=== PATIENT | male | born 1955 ===

== ENCOUNTER 2023-12-04 21:23 | Inpatient (IN) | payer OTHER, SELFPAY ==
[2023-12-04] VITALS (41 sets, daily range): BP systolic 115–179; BP diastolic 73–133
--- NOTE | 2023-12-04 20:06 | ED.CVA ---
History of Present Illness
General
Chief Complaint: CVA/TIA Symptoms
Source: patient, spouse and ambulance crew
Exam Limitations: none
Time Seen by Provider: 12/04/23 20:04
Nursing documentation reviewed up to this point in time: agreed with
Onset of Stroke Symptoms
Onset of symptoms known: Yes
Date of onset of symptoms: 12/04/23
Time of onset of symptoms: 19:40
Time pt last seen normal is known: Yes
Date last time pt seen normal: 12/04/23
Time last time pt seen normal: 19:30
History of Present Illness
History of Present Illness:
68-year-old male presents emergency department due to right-sided gaze, expressive aphasia and dysarthria. Slurred speech and right-sided gaze began at 1940 tonight. He has residual left-sided weakness. He is not amatory from prior CVA.
Past History
Past History
ED Past Medical History: CVA and NIDDM
Social History
Tobacco: Non-smoker
Alcohol: None
Drug: None
Personal:
Living: with family
Review of Systems
Review of Systems
Allergies reviewed?: Yes
All Other Systems: Not applicable
Constitutional: Reports no symptoms
EENT: Reports no symptoms
Respiratory: Reports no symptoms
Cardiac: Reports no symptoms
ABD/GI: Reports no symptoms
: Reports no symptoms
Musculoskeletal: Reports no symptoms
Skin: Reports no symptoms
Neurological: Reports weakness and other (Left facial droop, dysarthria, expressive aphasia)
Endocrine: Reports no symptoms
Hematologic/Lymphatic: Reports no symptoms
Psychiatric: Reports no symptoms
Phy Exam
Physical Exam
Physical Exam:
Physical Exam
General: Chronic ill appearance
Neck: supple. no meningeal signs. normal posterior pharynx
Heart: s1/s2 regular rate and rhythm, no murmur. equal radial
pulses.
HEENT: Pupils equal round reactive to light, right gaze preference, left facial droop
Lungs: no acute respiratory distress. clear bilaterally
Abdomen: normal bowel sounds. not tender. no CVAT
Neuro: alert but unable to assess orientation. Left leg weakness, left arm weakness, expressive aphasia, dysarthria
Skin: no rash
Psychiatric: well kept. interactive and cooperative
Extremities: no edema. no calf tenderness. negative homans. good distal pulses
NIH Stroke Score
Level of Consciousness: 0 - Alert
LOC questions: 1-Answers one correctly
LOC Commands: 1-Performs one correctly
Best Gaze: 2-Total gaze palsy
Visual Leyva: 2=Full hemianopia
Facial palsy: 2=Partial paralysis
Motor - Right Arm: 1=Drift < 10 seconds
Motor - Left Arm: 2=Partial vs. gravity
Motor - Right Le-No drift 5 seconds
Motor - Left Le-None vs. gravity
Limb Ataxia: 1-Present in one limb
Sensation: 0-Normal
Best Language: 2-Severe aphasia
Dysarthria: 1-Mild slurring
Extinction and Inattention: 2-Total paco inattention
Total Score:: 20
Thierry Coma Scale
Eye Opening: Spontaneous
Verbal Response: Oriented
Motor Response: Obeys Commands
GCS Total Score: 15
Scores
NIH Stroke Score
Level of Consciousness: 0 - Alert
LOC Questions: 1-Answers one correctly
LOC Commands: 1-Performs one correctly
Best Horizontal Gaze: 2-Total gaze palsy
Visual Leyva: 2=Full hemianopia
Facial Palsy: 2=Partial paralysis
Motor - Right Arm: 1=Drift < 10 seconds
Motor - Left Arm: 2=Partial vs. gravity
Motor - Right Le-No drift 5 seconds
Motor - Left Le-None vs. gravity
Limb Ataxia: 1-Present in one limb
Sensation: 0-Normal
Best Language: 2-Severe aphasia
Dysarthria: 1-Mild slurring
Extinction and Inattention: 2-Total paco inattention
Total Score:: 20
Course
Orders/Labs/Results
Orders:
Orders
12/04/23 20:03
CT Head W/o Cont STROKE ALERT Urgent
Reason For Exam: CVA
12/04/23 20:04
CT Head/Neck Ang STROKE ALERT Urgent
Comment:
Reason For Exam: left side weakness, right gaze preference
Cardiac Monitoring- Treatment ONCE
Pulse Ox/cont/shift [RESP] Stat
Quantity: 1
12/04/23 20:05
Electrocardiogram (*1) Stat
Reason for Study: Other
Other Reason for Exam: neuro symptoms
EKG- Treatment ONCE
12/04/23 20:16
DIETARY CONSULT Routine
Reason for Consult: cva
Speech Screening from [facility] Routine
Speech Therapy Eval & Treat Stat
12/04/23 20:25
Complete Blood Count/With Diff Urgent
Comprehensive Metabolic Panel Urgent
PTT Urgent
Prothrombin Time Urgent
12/04/23 20:48
Tenecteplase [Tnkase] 15 mg Syringe [Syringe Non-Pump] 0 ml IV NOW
Provider explained risk/benefits to patient &/or caregiver?: Yes
Blood pressure: 116/81
12/05/23 Breakfast
NPO
Reason for opting out of Loaf Counter order writing: Provider Decision
Allow oral meds: No
Allow clear liquids: No
Comment: npo/cva
Abnormal Lab Results
12/04/23 12/04/23
20:24 20:25
WBC 14.9 H 10^3/uL
(4.8-10.8)
Abs Immat Gran (auto) 0.1 H 10^3/uL
(0-0.05)
Absolute Neuts (auto) 9.3 H 10^3/uL
(1.4-6.5)
Absolute Lymphs (auto) 4.1 H 10^3/uL
(1.2-3.4)
Absolute Monos (auto) 1.1 H 10^3/uL
(0.1-0.6)
PT 15.6 H Sec
(11.4-14.6)
Glucose 171 H mg/dl
(70-99)
Total Protein 6.0 L g/dl
(6.3-8.2)
POC Glucose 171 H mg/dl
(70-99)
12/04/23 20:25
12/04/23 20:25
Vital Signs
Initial and Last Documented VS:
Initial Vital Signs
Temp Pulse Resp BP Pulse Ox
97.8 F 87 16 115/74 99
12/04/23 20:04 12/04/23 20:04 12/04/23 20:04 12/04/23 20:04 12/04/23 20:04
Last Documented Vital Signs
Temp Pulse Resp BP Pulse Ox
98.4 F 85 22 118/73 91
12/04/23 20:04 12/04/23 20:45 12/04/23 20:45 12/04/23 20:45 12/04/23 20:45
MDM/Problems Addressed
Differential Diagnosis Includes:
Acute CVA, intracranial hemorrhage
MDM/Problems Addressed:
68-year-old male with acute CVA, TNK indicated, in discussion with and Dr. Verma, neurologist.
Chronic conditions affecting care: DM and Neurological disorder (Prior CVA)
Acute Exacerbation and/or Progression of Chronic Illness: DM and Neurological disorder (Prior CVA)
*Radiology
Radiology exam reviewed: radiology read reviewed (CT head chronic ischemic changes)
*Pulse Oximetry
Patient hypoxic: yes
*EKG
Interpreted by ED Provider?: Yes
EKG Intrepretation Date: 12/04/23
EKG Intrepretation Time: 20:26
Interpretation: abnormal
Comparison EKG: no comparison EKG present
Heart Rate: 87
Rate: normal
Rhythm: sinus
Foley: normal axis
Interval: normal interval
QRS Pattern: right bundle branch block
Ischemia: no ischemia
*Pest Control Technician Interpretation
Rate: normal
Interpretation: normal
Heart Rate: 85
Rhythm: sinus
*Critical Care Note
Total Time (30-74mins, 75-104mins- exclusive of procedures): 45
comment:
Critical care statement: A total of 45 minutes of critical care time was provided for this patient. This includes management of unstable vital signs, evaluation of the patient at bedside, reviewing the patient's pertinent medical records, discussion
with consultants, review of old EKGs and review of pertinent medical records. This time with separate from time utilized to perform the aforementioned documented procedures
Patient Management
Social determinants of health affecting care: Living situation
Discussion with other providers: Hospitalist and State [employer] Deputy Director (neurologist)
Escalation/DeEscalation of care consider admission/obs:
ICU admit indicated
ED Attending Note
-
Portions of this chart may have been created with voice recognition software.� Occasional wrong word or��sound alike� substitutions may have occurred due to the inherent limitations of voice recognition software.
Discharge Plan
Departure
Patient Disposition: Admit
Date of Disposition: 12/04/23
Time of Disposition: 20:41
Admit to: ICU
Presentation/result/management discussed w/ accepting MD/DO: Hospitalist
Patient with high blood pressure during this ER visit?: No
Condition: Serious
Discharge Problem:
Acute cerebrovascular accident (CVA)
Interventions
Interventions:
*Risk Screen - Suicide Last Done: 12/04/23 20:04
*General Assessment Last Done: 12/04/23 20:04
*Neglect/Abuse Screening Last Done: 12/04/23 20:04
ED- Fall Risk Assessment Last Done: 12/04/23 20:04
ED- Pulmonary Assessment Last Done: 12/04/23 20:04
ED- Neurological Assessment Last Done: 12/04/23 20:04
ED- Cardiac Assessment Last Done: 12/04/23 20:04
ED Swallowing Screen Last Done: 12/04/23 20:31
Discharge Date and Time
Print Language: SYRIAC
[2023-12-04 20:25] LABS: Glucose - Point of Care 171 mg/dl (70-99)
[2023-12-04 20:34] LABS: Hematocrit 41.9 % (39.0-52.0); Hemoglobin 14.5 g/dL (13.0-18.0); Mean Corp Hgb Conc. 34.6 g/dL (33.0-37.0); Mean Corpuscular Hgb 29.4 pg (27.0-31.0); Mean Platelet Volume 9.7 fL (7.4-10.4); Platelet Count 281 10^3/uL (130-400); Red Blood Cell Count 4.93 10^6/uL (4.70-6.10); Red Cell Dist. Width 13.2 % (11.5-14.5); White Blood Cell Count 14.9 10^3/uL (4.8-10.8)
[2023-12-04 20:42] LABS: APTT 25.5 Sec (23.4-35.0); INR 1.26; PT 15.6 Sec (11.4-14.6)
[2023-12-04 20:44] LABS: ALT (SGPT) 24 U/L (0-50); AST (SGOT) 24 U/L (17-59); Albumin 3.8 g/dl (3.5-5.0); Alkaline Phosphatase 50 U/L (38-126); Blood Urea Nitrogen 19 mg/dl (9-20); Calcium 9.3 mg/dl (8.4-10.2); Chloride 102 mmol/L (98-107); Glucose 171 mg/dl (70-99); Potassium 3.8 mmol/L (3.5-5.1); Sodium 141 mmol/L (135-145); Total Bilirubin 0.5 mg/dl (0.2-1.3); eGFR > 60.00
[2023-12-04 20:49] LABS: % Basophils 0.6 % (0-2); % Eosinophils 1.6 % (0-6); % Immature Granulocytes 0.3 % (0-0.5); % Lymphocytes 27.6 % (20.5-51.1); % Monocytes 7.6 % (1.7-9.3); % Neutrophils 62.3 % (42.2-75.2); Absolute Basophils 0.1 10^3/uL (0-0.2); Absolute Eosinophils 0.2 10^3/uL (0-0.7); Absolute Immature Granulocytes 0.1 10^3/uL (0-0.05); Absolute Lymphocytes 4.1 10^3/uL (1.2-3.4); Absolute Monocytes 1.1 10^3/uL (0.1-0.6); Absolute Neutrophils 9.3 10^3/uL (1.4-6.5); Nucleated Red Blood Cells % 0 % (-)
[2023-12-04 20:54] LABS: Carbon Dioxide 25 mmol/L (22-30)
[2023-12-04] MEDS: TNKASE 3 MG IV (20:54)
--- NOTE | 2023-12-04 21:12 | CON.NEURO4 ---
Consultation - Neurology 4
-
CONSULTING PHYSICIAN: Gianluca Mendoza
REFERRING PHYSICIAN: ER
DICTATED BY: Gianluca Verma MD
DATE/TIME OF REQUEST: December 04, 2023
DATE/TIME OF CONSULTATION: December 04 [id number]
Reason for Consultation: Aphasia with right gaze preference
History of Present Illness:
This is a (68) year old right) handed (male/ who has presented to the hospital with (chief complaint) of aphasia with right gaze preference. He has a history of prior CVA with residual left-sided paralysis with left field cut, hypertension,
diabetes, GERD presenting with slurred speech. As per patient's spouse, patient was in his house and at 7:40 PM she heard him scream and when she went to see him he was dry heaving. He was pale and had slurred speech. No seizure noted.
She called EMS and he was brought to the hospital. At baseline pat chair bound able to stand and walk with assist. Able to feed himself chew and swallow.
On arrival he was confused disoriented with left hemiplegia and visual field cut. Speech was limited.
He was given TNK at 2100. Following TNK infusion, pat mental status improved with improved eye movements and speech pattern. Left side remains weak(old)
Past Medical History: Hypertension diabetes Right CVA(Apr 2021)
Surgical History: None
Family History: Noncontributory
Social History: Quit smoking
Allergies: No known allergies
Home Medications: Addendum
Review of Symptoms:
'Per the HPI. I am unable to obtain a complete review of systems�because of patient's inability to provide history.'
Vital Signs:
The patient has a Temp 36.9 C Pulse 91 Resp26 BP 133/90 Pulse Ox 87
Physical Exam:
The patient is afebrile, heart sounds S1 and S2 are (regular , and chest is clear to auscultation bilaterally.
- If not clear, describe.
NIH Stroke Scale (if applicable):
I performed the NIH stroke scale on the patient. The patient scored ( 20 ) points on the NIH stroke scale assessment, which were assigned as follows:
Neurologic Examination:
The patient is awake, confused and oriented x person. (He is able to follow commands intermittently and unable to answer questions appropriately. There is aphasia and dysarthria. Unable to tell his wifes name or his
On cranial nerve assessment, pupils are 3 mm bilateral, round and reactive to light and accommodation. Visual aguilar are full. Extraocular movements are intact. Facial sensations are intact and bilaterally symmetrical, there is LEFT facial
asymmetry. Hearing is intact bilaterally to normal conversation volume. Tongue palate and uvula are midline. Sternocleidomastoid strengths are full bilaterally.
Motor strengths are 0/5 LEFT upper and lower extremities(OLD). There is involuntary movement noted. Deep tendon reflexes are 3+ bilateral upper and lower extremities and LEFT Babinski. Sensations of pain, touch, temperature and vibration are
impaired(L). There was no extinction noted on double simultaneous stimulation.
Coordination is intact by finger to nose RIGHT. BedBound
Lab Results: Addendum
Neuro Imaging: CT head shows large Chronic posterior Right frontal temporal occipital ischemic focus
Impression:
(Mr. / Ms.) ALIZE MAYA is a 68 year old M who has presented to the hospital with (symptoms/chief complaint).
Differentials for the patient's presentation include:
1. Extension of previous infarct
2. Seizures
Patient has the following risk factors for their symptoms: Hypertension diabetes previous stroke
IV Tenecteplase/IAT candidacy: Patient received IV tenecteplase at 2100
Recommendations:
1. Serial CT head
2. Permissive hypertension with MAP of 100
3. Statin therapy
4. ICU monitoring
5. MRI head
6. EEG
7. Carotid Dopplers
8. Echocardiogram
9. Neurochecks
10. N.p.o.
11 PT/OT
Discussed patient care with: ED
Allergies
-
Allergies
Allergy/AdvReac Type Severity Reaction Status Date / Time
No Known Allergies Allergy Unverified 12/04/23 20:30
Vital Signs and Labs
-
Vital Signs and Labs:
Vital Signs
Temp Pulse Resp BP Pulse Ox
36.9 C 91 26 133/90 87
12/04/23 20:04 12/04/23 21:12 12/04/23 21:12 12/04/23 21:12 12/04/23 21:12
Lab Results
12/04/23 20:25
12/04/23 20:25
PT 15.6 Sec (11.4-14.6) H 12/04/23 20:25
INR 1.26 12/04/23 20:25
APTT 25.5 Sec (23.4-35.0) 12/04/23 20:25
Sodium 141 mmol/L (135-145) 12/04/23 20:25
Potassium 3.8 mmol/L (3.5-5.1) 12/04/23 20:25
BUN 19 mg/dl (9-20) 12/04/23 20:25
Glucose 171 mg/dl (70-99) H 12/04/23 20:25
Calcium 9.3 mg/dl (8.4-10.2) 12/04/23 20:25
Medications
-
Active Medications
Generic Name Dose Route Start Last Admin
Trade Name Freq PRN Reason Stop Dose Admin
Sodium Chloride 1,000 mls @ 60 mls/hr 12/04/23 21:15
Nss IV
.[id number] IKER
Levetiracetam 500 mg 12/04/23 22:00
Levetiracetam (100 Mg/Ml) 500 Mg/5 Ml Vial IV 01/01/24 21:59
Q12 IKER
--- NOTE | 2023-12-04 21:16 | HPS.HSE ---
Family Physician
-
Family Physician:
Chief Complaint
-
aphasia
History of Present Illness
68-year-old male with past medical history of prior CVA with residual left-sided paralysis, left eye vision loss, short-term memory loss, hypertension, diabetes, GERD presenting with slurred speech. As per patient's spouse, patient was in his house
and at 7:40 PM she heard him scream and when she went to see him he was dry heaving and looked pale and had slurred speech. She called EMS and he was brought to the hospital.
At baseline patient is wheelchair-bound.
She reports that he was confused.
Denies smoking or alcohol use.
No family history of strokes.
Medical History
Past Medical History
Past Medical History: Reports Other (prior CVA with residual left-sided paralysis, left eye vision loss, short-term memory loss, hypertension, diabetes, GERD)
Past Surgical History: Reports None
Social History
Tobacco: Non-smoker
Alcohol: None
Drug: None
Family History
Family History: Not pertinent
Allergies / Home Medications
Allergies reflects when Allergies were last updated in [facility].
Home Medications with original date entered in [facility]
Allergy/Medication List:
Allergies
Allergy/AdvReac Type Severity Reaction Status Date / Time
No Known Allergies Allergy Unverified 12/04/23 20:30
Review of Systems
-
History Source: Patient
A 12 point ROS was completed and negative except as noted: Yes
Constitutional: Reports No Symptoms
EENT: Reports No Symptoms
Respiratory: Reports No Symptoms
Cardiac: Reports No Symptoms
Abdomen/GI: Reports No Symptoms
: Reports No Symptoms
Musculoskeletal: Reports No Symptoms
Skin: Reports No Symptoms
Neurological: Reports No Symptoms
Endocrine: Reports No Symptoms
Hematologic/Lymphatic: Reports No Symptoms
Psych: Reports No Symptoms
Physical Exam
Vital Signs
Vital Signs
Temp Pulse Resp BP Pulse Ox
98.4 F 91 26 133/90 87
12/04/23 20:04 12/04/23 21:12 12/04/23 21:12 12/04/23 21:12 12/04/23 21:12
Physical Exam
General: Well Developed, Well Nourished and No Apparent Distress
HEENT: NormoCephalic, Moist mucous membranes and Atraumatic
Respiratory: Clear
Cardiac: S1/S2 and Regular Rhythm; No Murmur or Rub
GI: Soft, Non Tender, Non Distended and Normal Bowel Sounds; No Organomegaly
Rectal: Deferred by Provider
Musculoskeletal: No Clubbing, No Cyanosis and No Edema
Skin: No Rash
Neuro: Nonfocal/grossly intact and Other (aphasia, left sided paralysis )
Laboratory Results
-
12/04/23 20:25
12/04/23 20:25
Laboratory Results
PT 15.6 Sec (11.4-14.6) H 12/04/23 20:25
INR 1.26 12/04/23 20:25
APTT 25.5 Sec (23.4-35.0) 12/04/23 20:25
Total Bilirubin 0.5 mg/dl (0.2-1.3) 12/04/23 20:25
AST 24 U/L (17-59) 12/04/23 20:25
ALT 24 U/L (0-50) 12/04/23 20:25
Alkaline Phosphatase 50 U/L (38-126) 12/04/23 20:25
Data Reviewed
-
Lab Data: Labs Reviewed by me
Old Records: Reviewed
Impression/Plan
-
IMPRESSION:
PLAN:
# Aphasia secondary to Acute CVA versus seizure
-Accurate NIH unable to be performed due to baseline left-sided paralysis and patient's mental capacity
-TNK given
-Neurochecks per protocol
-Hold aspirin
-Check MRI brain
-PT/OT/speech evaluation
-N.p.o.
-A1c and lipid panel
-permissive hypertension up to 180/100 systolic
-Keppra BID started
-Neurology consulted
History of CVA with residual left-sided paralysis, left eye vision loss, short-term memory loss
Type 2 diabetes
-Hold metformin
-Insulin sliding scale
Essential hypertension
-Hold amlodipine
GERD
-Continue Protonix as IV
DNR/DNI
DVT prophylaxis�SCDs
N.p.o.
--- NOTE | 2023-12-04 22:32 | W.PN.UPDATE ---
Update Note
Progress Note Update
As per radiology there is concern for pulmonary embolism within the superior margin of the left pulmonary artery with possible emboli extending into lower branch vessels. Checking CT PE and venous lower extremity ultrasound to confirm pulmonary
embolism. As patient just received TNK for possible CVA, patient cannot be anticoagulated at this time for at least 24 hours. Will need to determine timing of starting anticoagulation with guidance from neurology.
[2023-12-04] MEDS: NSS 1000 IV (22:59)
[2023-12-04] MEDS: KEPPRA 500 MG IV (23:00)
--- NOTE | 2023-12-04 23:00 | PTCARENOTE ---
Received patient from ED RN, [facility] completed together, score of 17. See neuro assessment. TNK given in ED, no s/s of bleeding, VSS, permissive HTN MAP >100 per Neurology note. 4L NC. 1 IV site upon arrival to ICU in left AC. Pt went for CT of chest,
positive for PE. NSS @60ml. CC #21 placed for incontinence, Q2hour turns with pillows. Dual RN skin check completed, pts skin is intact, he has psoriasis patches on b/l legs, hips, back and arms. was able to assist with admission questions.
[2023-12-05] VITALS (73 sets, daily range): BP systolic 131–184; BP diastolic 67–99; BMI 26.6
--- NOTE | 2023-12-05 01:00 | W.PN.UPDATE ---
Update Note
Progress Note Update
12/04/23
2670- CTA of the chest results received from radiologist, Pulmonary embolus in the left main pulmonary artery, and small embolus within a segmental branch within the right lower lobe, with possible embolus within the right anterior subsegmental
branch within the right upper lobe. Right RV strain present as well. Results of CTA of the chest communicated with Dr. Patel, social media designer. Patient has received TNK for stroke symptoms upon presentation to the ER, immediately initiation of
anticoagulation, heparin gtt for pulmonary emboli cannot be started at this time. Currently heart rate 80s in sinus rhythm and SBP 150s, patient is not tachycardic or hypotensive with PE's. Will obtain labs and follow PTT and fibrinogen and
initiation of heparin gtt will be considered. Repeat Ct scan of the head ordered for AM.
12/05/23
0015- Patient's , Maira updated on findings of CTA of chest with multiple pulmonary emboli and answered all questions.
[2023-12-05 01:34] LABS: Glucose - Point of Care 160 mg/dl (70-99)
[2023-12-05 04:16] LABS: Hematocrit 41.8 % (39.0-52.0); Hemoglobin 14.6 g/dL (13.0-18.0); Mean Corp Hgb Conc. 34.9 g/dL (33.0-37.0); Mean Corpuscular Hgb 30.2 pg (27.0-31.0); Mean Corpuscular Volume 86.5 fL (80.0-94.0); Mean Platelet Volume 9.6 fL (7.4-10.4); Platelet Count 227 10^3/uL (130-400); Red Blood Cell Count 4.83 10^6/uL (4.70-6.10); Red Cell Dist. Width 12.9 % (11.5-14.5); White Blood Cell Count 11.1 10^3/uL (4.8-10.8)
[2023-12-05 04:32] LABS: INR 1.33; PT 16.3 Sec (11.4-14.6)
[2023-12-05 04:33] LABS: APTT 31.5 Sec (23.4-35.0); Fibrinogen 164 MG/DL (199-459)
[2023-12-05 04:38] LABS: Blood Urea Nitrogen 19 mg/dl (9-20); Calcium 9.7 mg/dl (8.4-10.2); Carbon Dioxide 30 mmol/L (22-30); Chloride 105 mmol/L (98-107); Glucose 163 mg/dl (70-99); HDL Cholesterol 48 mg/dl; LDL Cholesterol, Calculated 82 mg/dl; Magnesium 1.6 mg/dl (1.6-2.3); Phosphorus 3.7 mg/dl (2.5-4.5); Potassium 4.6 mmol/L (3.5-5.1); Sodium 144 mmol/L (135-145); Total Cholesterol 151 mg/dl (50-199); Triglyceride 105 mg/dl (10-149); Very Low Density Lipoprotein 21 mg/dl (0-30); eGFR > 60.00
[2023-12-05] MEDS: MAGNESIUM SULFATE 50 IV (05:45)
--- NOTE | 2023-12-05 07:16 | CON.INTV ---
Consultation
Consultation Request
Date/Time Consultation Requested: 12/05/2023-7 AM
Date/Time Consultation Performed: 12/05/2023-7 AM
Requesting Provider: Hospitalist
Performing Provider: Dr. Patel
Reason for Consultation: CVA and PE
Medical History
-
Chief Complaint: Neurologic changes
History of Present Illness:
68-year-old right-handed male with a history of prior CVA with residual left-sided paralysis, left vision loss, short-term memory loss, hypertension, diabetes, reflux who presented with dry heaves looking pale and slurred speech-brought to the
emergency room felt to have evolving CVA and given TKA and workup also revealed significant pulmonary emboli-grinder hardboard consulted for CVA/post TKA/PE/critical care management 12/05/2023. The patient feels improved from a neurologic perspective. He
continues to have some slurred speech but denies any shortness of breath, chest pain, pleurisy, chest congestion, productive cough, abdominal pain, nausea, or progressive weakness.
Past Medical History
Past Medical History: None (CVA with residual left-sided paralysis. Left eye vision loss. Short-term memory loss. Hypertension. Diabetes. GERD.)
Social History
Tobacco: Non-smoker
Alcohol: None
Drug: None
Personal:
Living: With Family
Occupational Exposures: No known asbestos exposure
Environmental Exposures: No known tuberculosis exposure
Family History
Family History: Reviewed & Not Pertinent
Allergies / Home Medications
Allergies
Allergy/AdvReac Type Severity Reaction Status Date / Time
No Known Allergies Allergy Unverified 12/04/23 20:30
Review of Systems
-
Unable to Obtain full review of systems at this time due to: Other (Per HPI)
Vitals / Labs / Diagnostic Testing
Vital Signs
Temp Pulse Resp BP Pulse Ox
98.5 F 75 15 131/68 98
12/05/23 04:30 12/05/23 06:57 12/05/23 06:57 12/05/23 06:57 12/05/23 05:45
Lab Data
12/05/23 03:51
12/05/23 03:51
Laboratory Results
12/04/23 12/05/23
20:25 03:51
PT 15.6 H 16.3 H
INR 1.26 1.33
APTT 25.5 31.5
Diagnostic Testing:
Physical Exam
-
Exam:
Well-nourished and well-developed in no apparent distress
HEENT-atraumatic, normocephalic
Neck-supple, no JVD, no bruit
Heart-regular rate and rhythm-no murmurs, rubs or gallops
Chest with diminished breath sounds but no wheezes or crackles
Abdomen-soft, nontender, nondistended, no hepatosplenomegaly
Extremities-no cyanosis, clubbing, edema and good peripheral pulses
Integument-intact, no rashes, lesions or ecchymosis
Neurology-alert and oriented, left-sided paralysis, dysarthria
Assessment
-
68-year-old right-handed male with a history of prior CVA with residual left-sided paralysis, left vision loss, short-term memory loss, hypertension, diabetes, reflux who presented with dry heaves looking pale and slurred speech-brought to the
emergency room felt to have evolving CVA and given TKA and workup also revealed significant pulmonary emboli-grinder hardboard consulted for CVA/post TKA/PE/critical care management 12/05/2023.
Evolving CVA status post TKA
Bilateral pulmonary emboli-moderate clot burden
[id number] II-low risk
Mild leukocytosis
Mild hyperglycemia
Conditions present prior to admission:
CVA with residual left-sided paralysis.
Left eye vision loss.
Short-term memory loss.
Hypertension.
Diabetes.
GERD.
Plan
Admit patient to medical intensive care unit
Supplemental oxygen to maintain saturation greater than 92%
Aspiration precautions
Neurology evaluation
Monitor blood pressure closely-goal SBP < 180, DBP < 105
Neuro checks per protocol
Check CT head
MRI head/MRA head and neck in next 24 hours
Status post tenecteplase infusion-received two thirds typical dose
Hold antiplatelet therapy �24 hours
Check lipid panel
Check echocardiogram with bubble
Check A1c
Carotid circulation evaluation
Atorvostatin 80 mg daily if tolerated
Monitor blood sugar-insulin as needed-goal blood sugar 140-180
From a pulmonary embolism perspective-moderate clot burden, class II-low risk with some evidence for right ventricular strain
CT chest personally reviewed-summarized below
Check echocardiogram with bubble to rule out shunt
Lower extremity ultrasound without evidence for DVT
May need eventual hypercoagulable workup
Full PESI and sPESI summarized above
Heparin drip for pulm embolism technically could be initiated once PTT <70 with normal fibrinogen levels-patient currently not tachycardic or hypotensive and asymptomatic and would initiate heparin without bolus at 6 PM tonight-reviewed with primary
team as well as neurology
DVT prophylaxis-heparin drip will be initiated 12/05/2023
Speech therapy/occupational therapy/physical therapy evaluation
Eventual outpatient pulmonary follow-up
Critical care statement: A total of 55 minutes of critical care time was provided for this patient today. This includes management of unstable vital signs, evaluation of the patient at bedside, reviewing the patient's pertinent medical records
including radiographs, microbiology, laboratory evaluations, and discussion with primary team, consultants, pharmacy, nutrition, physical therapy, case management, charge nurse, critical care nursing, and respiratory therapy.
Diagnostic data:
Chest x-ray 12/04/2023-focal opacification medial aspect left lower lobe likely atelectasis, no evidence for pulmonary edema
CT chest 12/04/2023-pulmonary embolism distal aspect left main pulmonary artery, additional small emboli within the right lower lobe and right upper lobe, right ventricle is enlarged suggesting right ventricular strain
CT head 12/04/2023-no evidence for acute intracranial abnormalities, multiple regions of old infarct, moderate to severe leukomalacia, mild to moderate diffuse atrophy
CT head neck angiogram 12/04/2023-bilateral carotid bulb and proximal ICA calcification, hypoplastic right A1 segment anterior cerebral artery, luminal irregularities and calcifications involving M1 portion of the middle cerebral arteries
bilaterally, no evidence for large vessel occlusion or high-grade stenosis, just at the inferior margin of included aguilar there is a concern for left-sided pulmonary artery embolization
CT head 12/05/2023-No evidence for acute intracranial abnormalities
Lower extremity ultrasound 12/05/2023-no evidence for DVT bilaterally
Data Reviewed
-
EKG: Report reviewed by me
Radiology: Image personally visualized and interpreted and Report reviewed by me
CT Scan: Image personally visualized and interpreted and Report reviewed by me
Ultrasound: Report reviewed by me
Medical Tests (Nuc Med, Echo etc): Report reviewed by me
Labs: Labs reviewed by me
Old Records: Reviewed
Critical Care Time (in minutes): 55
--- NOTE | 2023-12-05 07:22 | PTCARENOTE ---
Rec'd pt at 0700. Handoff completed at bedside with nightshift RN. NIHSS-17, pt with left sided residual and neglect from previous stroke. Pt inconsistent with answers and commands. Will resist and yell out at times during care or directions. Pt
with repetitive one word answers which will not always relate to question being asked at that time. Pt is not forming complete sentences and falling asleep during assessment. Monitor SR. Lungs CTA, pox 97% 4LNC. +BS, abd soft/nt. Pt repositioned.
[2023-12-05] MEDS: PROTONIX IV 40 MG IV (07:41)
[2023-12-05] MEDS: NSS (PRESERVATIVE FREE) 10 ML IV (07:41)
[2023-12-05] MEDS: KEPPRA 500 MG IV (07:41)
[2023-12-05 07:50] LABS: Glucose - Point of Care 139 mg/dl (70-99)
--- NOTE | 2023-12-05 08:54 | PTOTSP ---
SPEECH THERAPY SWALLOW EVALUATION:
Patient exhibits clinical signs of oropharyngeal dysphagia, likely chronic related to CVA, cognitive deficits, and GERD, and acutely exacerbated by current critical illness (PE, possible extension of previous CVA vs seizures) and lethargy. Patient
remains at high risk for aspiration and related complications due to lethargy and confusion. Recommend temporary strict NPO; Non-oral medications, hydration, nutrition preferred. ST to follow and re-assess in 24 hours. Discussed with RN and
Ruslan.
RECOMMEND:
1) temporary strict NPO
2) Non-oral medications, hydration, nutrition preferred
3) ST to follow and re-assess in 24 hours
--- NOTE | 2023-12-05 09:23 | W.PN.HOSP.TC ---
Addendum entered and electronically signed by Almas Mercer MD 12/05/23 13:29:
Neurology recommends strongly for heparin drip to be started 2100, order adjusted.
Radiology offered to do MRI brain without contrast at 1400 versus tomorrow morning, neurology recommended to be done tomorrow morning.
Discussed with need of keppra and ok to be held now.
Original Note:
Today's Communication/Plan
-
see note
Assessment / Plan
Assessment / Plan
CT head
There is a focal area of CSF density in the right parietal lobe posterolaterally, and also extending to involve the posterior right occipital lobe, and these findings are compatible with encephalomalacia from old infarction.
There is also a small focus of CSF density in the anteromedial left thalamus, compatible with old infarction.
Focal area of decreased density involving loss in the posterior left occipital lobe, compatible with old infarction.
There is also a focal area of volume loss and decreased density involving the anteromedial right frontal lobe, as seen on image 19 of series 204, compatible with old infarction. Small foci of decreased density within the cerebellar hemispheres,
which likely represent small old infarct.
Moderate to severe leukomalacia is present.
Mild to moderate diffuse atrophy.
There is no evidence of acute intracranial hemorrhage. There is no midline shift.
There is significant calcification of the internal carotid arteries and middle cerebral arteries bilaterally. There is no CT evidence for a focal area of acute to subacute infarction.
The visualized paranasal sinuses appear clear. The mastoid air cells appear clear
CT chest PE
There is embolus in the distal aspect of the left main pulmonary artery, and extending into the interlobar and left lower lobe pulmonary arteries. Involvement of segmental branch within the left upper lobe and also probably involvement of the
lingular branches. Additionally, there appears to be a small embolus within a segmental branch within the right lower lobe. No evidence for embolus within the right main pulmonary artery. Possible embolus within the right anterior subsegmental
branch within the right upper lobe. The right ventricle is enlarged with deviation of the interventricular septum toward the left, findings suggesting right heart strain.
The thoracic aorta is fairly well opacified. There is mild to moderate atherosclerotic disease of the thoracic aorta. The aortic root appears prominent with transverse dimension of 4.2 cm. The ascending aorta is within normal limits of caliber. No
significant dilation of the aortic arch or the descending thoracic aorta.
There is no significant pleural effusion and no significant pericardial effusion.
Band of linear atelectasis within the posterior right lower lung. Mild dependent atelectasis in the posterior left lower lung.
No significant abnormality in the visualized upper abdomen.
Minimal dextroconvex scoliosis of the thoracic spine. Mild changes of degenerative disc disease with no evidence for compression fracture. Increased kyphosis centered at the cervicothoracic junction.
CTA H&N
Bilateral carotid bulb and proximal ICA calcification, with no evidence for hemodynamically significant stenosis.
Hypoplastic right A1 segment of the anterior cerebral artery.
Luminal irregularity and calcification involving the M1 portions of the middle cerebral arteries bilaterally, with no evidence for large vessel occlusion/high-grade stenosis.
Luminal irregularity of the posterior cerebral arteries bilaterally, compatible with multifocal mild to moderate stenoses. No evidence for significant narrowing of the vertebral or basilar arteries

1. Episode of slurred speech
Concern for new CVA
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
Residual left-sided weakness/vision loss
-Patient came in with question of new onset of dysarthria/speech changes
-CT head showing diffuse old infarct, no new bleed
-CTA head and neck done which did not show any large thrombus. Diffuse vascular changes as mentioned above on the report.
-Patient got IV TNK 15 mg push in the ER after discussion with Neurologist plant operator control room operator
-Repeat CT head done in the night did not show any any brain bleed
-Currently patient being monitored in ICU
-Patient plan to get an MRI brain without contrast
-Check A1c/lipid profile
-Due to PE and simultaneous stroke concern of septal defect/ASD, echocardiogram with bubble study ordered
-Neurology following and help appreciated
2. Bilateral PE - submassive
Right heart strain
-Patient had diffuse bilateral PE on CT chest PE, also concern of RV strain by imaging standard
-Vitally patient stable and not tachycardic/not hypotensive
-Patient got 1/3 dose of TNK that he would have gotten for primary PE thrombolysis
-Lower extremity venous Doppler has ruled out any DVT
-Discussed with hand alterations seamstress, will start patient on heparin drip at 1800 without blousing.
3. Acute TME
-Baseline unknown
-Patient has been started on Keppra by neurology, likely can be discontinued if neurology agreement
-Avoid sedative meds.
4. Leukocytosis w/o fever
-reactive in nature, monitor off abx
-Chest x-ray questioning lower basilar infiltrate although likely atelectatic changes
-Septic workup including cultures antibiotic precardiac having a new fever
5. Dysphagia
-Speech therapy evaluated and patient to be maintained n.p.o. for now
-Maintenance slow IV fluid
6. HTN
-BP elevated, start losartan 12.5mg x1 , will increase slowly if vitally remains stable
DVT PPX - SCD
Full code
Total Critical Care Time 39 minutes. I was immediately available to the patient and staff. I personally examined, reviewed labs, diagnostic images/reports, interpretations, treatment plans, discussed patient care with other providers and family
or caregivers (if patient is unable to make decisions), entered orders as appropriate and documented the medical record.
Anticipated Discharge: 24 - 48 hours
Subjective/Interval History
-
Date of Service: December 05, 2023
Patient somewhat somnolent, answering question in between
On oxygen 2 L nasal cannula
Not tachycardic/not hypotensive
Objective Data
-
Labs:
Laboratory Results
12/05/23
03:51
WBC 11.1 H
Hgb 14.6
Hct 41.8
Plt Count 227
PT 16.3 H
INR 1.33
APTT 31.5
Sodium 144
Potassium 4.6
Chloride 105
Carbon Dioxide 30
BUN 19
Creatinine 0.8
Glucose 163 H
Calcium 9.7
Vital Signs:
Vital Signs
Temp Pulse Resp BP Pulse Ox
98.1 F 62 17 132/68 98
12/05/23 07:00 12/05/23 09:00 12/05/23 09:00 12/05/23 09:00 12/05/23 09:00
I&O
12/04/23 12/05/23 12/06/23
06:59 06:59 06:59
Intake Total 420 / 420
Output Total 175 / 175
Balance 245 / 245
Review of Systems
-
Respiratory: Reports No Symptoms
Cardiac: Reports No Symptoms
Abdomen/GI: Reports No Symptoms
Physical Exam
-
General: No Apparent Distress and Comfortable
HEENT: Negative Oxygen
Respiratory: Clear to Auscultation
Cardiac: Regular Rhythm and S1/S2; Negative Murmur or Rub
GI: Soft, Nontender and Nondistended
Musculoskeletal: No Edema
Neuro: Other (Left arm weakness); Negative Awake
Psych: Calm
--- NOTE | 2023-12-05 11:37 | CM ---
CM reviewed medical records. CM met with patient and family in room. Patient's brother Brian and his were visiting patient. As per Brian, they haven't seen patient in about a year so they felt they could not give accurate history for patient.
CM did confirm that patient lives with in a single story trailer. Patient has had a history of CVA with left sided weakness. CM will wait to visit to continue with IA.
[2023-12-05 11:41] LABS: Glucose - Point of Care 120 mg/dl (70-99)
--- NOTE | 2023-12-05 12:17 | PTCARENOTE ---
Pt more awake this afternoon, able to answer few questions appropriately but more interactive. Making eye contact and speaking more but speech is mostly repetitive. Pt's at bedside, updated. states that pt can usually hold a normal
conversation and has no difficulties swallowing at baseline.
[2023-12-05 12:59] LABS: Glycohemoglobin (HgbA1c) 6.6 % (4.0-5.6)
[2023-12-05] MEDS: NSS 1000 IV (13:37)
[2023-12-05] MEDS: COMPAZINE 10 MG IV (13:37)
--- NOTE | 2023-12-05 13:54 | CM ---
CM met with patient and Maira in room. CM confirmed that patient was known to [facility], but was recently discharged. Patient relies on a wheelchair for ambulation and at this time is only able to turn and pivot. feels that since
patient had COVID, patient has a functional decline. Patient is also known to [facility] for [facility], but again had been discharge. has an aid from Wednesday - 4 hours per day. Patient is active with his PCP. Patient uses [facility] for medication
services. Patient has been to [facility] and would not like to return.
CM discussed discharge options. would be agreeable to [facility] in [place]. PT had not evaluated patient at this time.
CM sent preliminary referral to [facility]
--- NOTE | 2023-12-05 14:33 | W.PN.NEURO.1 ---
Today's Communication / Plan
-
IV Heparin @ 9P without bolus
Serial CT head
Neuro Assessment/Plan
Assessment
68 yr. 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
CTA showed left pulmonary artery embolism
Plan
Serial CT head.
IV Heparin @ 9P. No Bolus
Hold Keppra
PT/OT
Speech therapy
Subjective/Objective
Subjective Data
Date of Service: December 05, 2023
Pat easily arousable, recognizes medical staff and family members. Speech fluent but limited tends to perseverate. Falls asleep easily.
Objective Data
Vital Signs
Temp Pulse Resp BP Pulse Ox
37.1 C 71 19 146/75 96
12/05/23 11:40 12/05/23 13:30 12/05/23 13:30 12/05/23 13:18 12/05/23 13:00
Lab Results
12/05/23 03:51
12/05/23 03:51
PT 16.3 Sec (11.4-14.6) H 12/05/23 03:51
INR 1.33 12/05/23 03:51
APTT 31.5 Sec (23.4-35.0) 12/05/23 03:51
Sodium 144 mmol/L (135-145) 12/05/23 03:51
Potassium 4.6 mmol/L (3.5-5.1) 12/05/23 03:51
BUN 19 mg/dl (9-20) 12/05/23 03:51
Glucose 163 mg/dl (70-99) H 12/05/23 03:51
Calcium 9.7 mg/dl (8.4-10.2) 12/05/23 03:51
Phosphorus 3.7 mg/dl (2.5-4.5) 12/05/23 03:51
LDL Cholesterol, Calc 82 mg/dl 12/05/23 03:51
Patient Allergies
No Known Allergies Allergy (Unverified 12/04/23 20:30)
Physical Exam
-
General: Well Developed, Well Nourished, No Apparent Distress and Comfortable
Eyes: Unable to Visualize OS
HEENT: Normocephalic and Atraumatic
Neck: No Bruits Bilaterally and Full Range of Motion
Respiratory: Decreased Breath Sounds
Cardiac: Regular Rhythm, No Murmur and S1/S2
GI: Normal Bowel Sounds
Skin: Unremarkable
Extremities: No Clubbing and No Cyanosis
Psych: Confused
Extended Neurological Exam
Mood & Affect: Other
Attention Span & Concentration: Awake, Interactive, Closes Eyes after Stimulation and Mild Difficulty with 2 Step Request
Memory: Reduced
Speech: Dysarthric and Variable
Cranial Nerve II: Left Eye: Pupillary Reactivity Unremarkable, Pupillary Size Unremarkable and Visual Leyva Reduced (LEFT Field Cut)
Cranial Nerve II: Right Eye: Pupillary Reactivity Unremarkable, Pupillary Size Unremarkable and Visual Leyva Reduced (LEFT Field cut)
Cranial Nerves III, IV, : Extraocular Movement: Extraocular Movement Full in all Directions
Cranial Nerve V: Facial Sensation: Intact to Light Touch
Cranial Nerve VII: Facial Symmetry: Reduced
Cranial Nerve VIII: Hearing: Unremarkable Hearing to Normal Conversational Volume
Cranial Nerves IX, X: Palate Movement: Palate Elevation Symmetric
Cranial Nerve XI: Shoulder Shrug: Unremarkable
Cranial Nerve XII: Tongue Protusion: Midline
Muscle Strength, Overall: Reduced on Left (1/)
Muscle Bulk & Tone: Increased Tone (Spastic (L))
Deep Tendon Reflexes: Unremarkable Throughout
Cold Sensation: Reduced
Vibration Sensation: Reduced
Touch Sensation: Double Simultaneous Stimulation Absent
Coordination: Unable to Assess
Babinski Sign: Present on Left
Gait & Station: Unable to Assess
Modified [place] Score (MRS)
-
Modified [place] Scale (mRS): Moderately severe disability. Unable to attend to bodily needs/walk.
Score: 4
Data Reviewed
-
CT Head: Image Reviewed (Chronic Ischemic changes(R). No bleed)
--- NOTE | 2023-12-05 16:09 | PTCARENOTE ---
Pt more interactive throughout afternoon, will complete short sentences and state 'how are you doing'. Follows some simple commands, but not always consistent. C/o intermittent headache, Dr. Mercer notified and IV Compazine given.
[2023-12-05] MEDS: LIPITOR PO (17:29)
[2023-12-05 17:43] LABS: Glucose - Point of Care 107 mg/dl (70-99)
--- NOTE | 2023-12-05 20:00 | PTCARENOTE ---
Rec'd pt resting in bed, calling out at times, left side w/ weakness from previous stroke, slight left facial droop noted when smiled- Negar Gonsalez, carton gluing machine operator aware, aphasic, NIH-16, moves R side spont, slight movement noted of left side, SR, weak distal
pulses, skin warm/dry, RA, lungs decr in bases, sat 95, + bowel sounds, no bm, abd soft, NPO, #21 short condom cath on- voiding adolfo urine
[2023-12-05 20:32] LABS: APTT 24.4 Sec (23.4-35.0); Fibrinogen 190 MG/DL (199-459)
[2023-12-05] MEDS: HEPARIN 25000 UNITS/250 ML IV (20:58)
--- NOTE | 2023-12-05 21:00 | PTCARENOTE ---
heparin gtt started at 1300 units per order
[2023-12-05 23:24] LABS: Glucose - Point of Care 127 mg/dl (70-99)
[2023-12-06] VITALS (33 sets, daily range): BP systolic 116–183; BP diastolic 40–119; BMI 27.0
--- NOTE | 2023-12-06 00:16 | PTCARENOTE ---
sys reviewed, changes noted, CHG bath done, linens changed
[2023-12-06] MEDS: TRANDATE 10 MG IV ×2 (02:13→04:50)
--- NOTE | 2023-12-06 02:14 | PTCARENOTE ---
labetolol 10mg iv given for elevated bp
[2023-12-06 03:15] LABS: Hematocrit 38.1 % (39.0-52.0); Hemoglobin 13.8 g/dL (13.0-18.0); Mean Corp Hgb Conc. 36.2 g/dL (33.0-37.0); Mean Corpuscular Volume 82.8 fL (80.0-94.0); Mean Platelet Volume 9.6 fL (7.4-10.4); Platelet Count 218 10^3/uL (130-400); White Blood Cell Count 9.2 10^3/uL (4.8-10.8)
[2023-12-06 03:25] LABS: INR 1.23; PT 15.3 Sec (11.4-14.6)
[2023-12-06 03:26] LABS: Fibrinogen 218 MG/DL (199-459)
[2023-12-06 03:28] LABS: APTT 95.9 Sec (23.4-35.0)
[2023-12-06 03:55] LABS: Blood Urea Nitrogen 15 mg/dl (9-20); Calcium 8.8 mg/dl (8.4-10.2); Carbon Dioxide 23 mmol/L (22-30); Chloride 108 mmol/L (98-107); Estimated Creatinine Clearance 105 ml/min; Glucose 126 mg/dl (70-99); Magnesium 1.8 mg/dl (1.6-2.3); Potassium 3.8 mmol/L (3.5-5.1); Sodium 144 mmol/L (135-145); eGFR > 60.00
--- NOTE | 2023-12-06 04:50 | PTCARENOTE ---
labetolol 10 mg iv given per order for bp
[2023-12-06 05:03] LABS: Glucose - Point of Care 132 mg/dl (70-99)
[2023-12-06] MEDS: NSS 1000 IV (06:04)
[2023-12-06] MEDS: PROTONIX IV 40 MG IV (07:40)
[2023-12-06] MEDS: NSS (PRESERVATIVE FREE) 10 ML IV (07:40)
--- NOTE | 2023-12-06 08:00 | PTCARENOTE ---
Received pt @ change of shift, NIH-17 completed w off going RN- see flow sheet. Pt. drowsy, awakens to verbal stimuli; confused conversation/dysarthria/expressive aphasia present. Profound L sided weakness from previous CVA; trace movement on L
side; slight L sided facial droop, unchanged from prev shift. Difficult to score d/t confusion/inconsistency of following commands. Pupils 3mm b/l; brisk. SR on monitor. SpO2 93% on RA. Afebrile. +BS, abd soft/nt. Strict NPO status maintained.
Complete mouth care provided. #[address] w adolfo urine. LE psoriasis. #22 R wrist patent, dressing c/d/i; # 20 L AC w NSS @ 60mL/hr and heparin gtt infusing- see flow sheet. Safe environment maintained.
--- NOTE | 2023-12-06 08:01 | W.PN.INTV ---
Today's Communication / Plan
Recommendations
Now the patient is able to eat pur�ed diet with meds crushed, start ASA and transition IV meds to PO if applicable
Goal BP <130/80,; no need for strict BP <180/105 given it has been >24 hours since TNK
High intensity statin with goal LDL <70
Start mono-platelet therapy with ASA (which is also a home medication) and continue with heparin drip with eventual transition to NOAC
Defer to neurology if dual -antiplatelet therapy is needed
TTE with bubble is pending; if negative then consider MARGAUX with cardiology consultation given high suspicion for cardioembolic/thromboembolic etiology of CVA
Neurology to continue following along with recs appreciated
PT/OT
Patient is stable for downgrade out of ICU to telemetry. Modeling And Simulation Analyst/pulmonary service will now sign off. Please reconsult if there are any additional questions/concerns, or if patient's respiratory status deteriorates.
Assessment
-
68-year-old right-handed male with a history of prior CVA with residual left-sided paralysis, left vision loss, short-term memory loss, hypertension, diabetes, reflux who presented with dry heaves looking pale and slurred speech-brought to the
emergency room felt to have evolving CVA and given TKA and workup also revealed significant pulmonary emboli-appliance counselor consulted for CVA/post TKA/PE/critical care management 12/05/2023.
Impression:
Multifocal ischemic CVA status post TKA (given on 12/04/2023)
Bilateral pulmonary emboli-moderate clot burden
[id number] II-low risk
Mild leukocytosis - resolved
Mild hyperglycemia - resolved
Conditions present prior to admission:
CVA with residual left-sided paralysis.
Left eye vision loss.
Short-term memory loss.
Hypertension.
Diabetes.
GERD.
Plan:
Now that he is s/p 24 hrs since TNK administration, keep goal BP <130/80
Supplemental oxygen to maintain saturation greater than 92-94%
Aspiration precautions
Neurology consulted - recs appreciated
MRI brain done today showing acute/subacute infarctions involving the left temporal lobe, left cerebral hemisphere, left posterior�occipital lobe and white matter of the left parietal�occipital junction
- Concern for cardioembolic vs thromboembolic CVA
- TTE with bubble study pending for today
- If TTE negative for intra-cardiac thrombus or PFO, recommend MARGAUX with cardiology consult to rule out cardio-embolic etiology of CVA
Neuro checks + NIHSS per protocol
CT head for any change in neurochecks or change in clinical status with immediate notification to neurology
s/p TNK administered on 12/04/2023 at 20:54 - he received two thirds of typical dose
High intensity statin with goal LDL <70
Check echocardiogram with bubble - pending for today
A1c: 6.6 --> maintain euglycemia with goal BG 140-180
Bilateral internal carotid arteries showed no hemodynamically significant stenosis on CTA neck from 12/04/2023
Pt passed swallow test by CAN WASHER today, but still with concern for aspiration, hence pending VFSS for tomorrow, with pureed diet for now with meds crushed
Start ASA - defer to neurology regarding if pt needs mono- vs dual-antiplatelets; would favor mono-platelet therapy given he's currently on heparin gtt & will need a NOAC upon discharge for his acute PE
Monitor blood sugar-insulin as needed-goal blood sugar 140-180
From a pulmonary embolism perspective-moderate clot burden, class II-low risk with some evidence for right ventricular strain
CTA chest personally reviewed-summarized below
Check echocardiogram with bubble to rule out shunt
Lower extremity ultrasound without evidence for DVT
Outpatient hematology consultation for hypercoagulable workup
Full PESI and sPESI summarized above
Continue heparin gtt with eventual transition to NOAC
Speech therapy/occupational therapy/physical therapy evaluation
- As stated above, videofluoroscopic swallow study (VFSS) pending for tomorrow
Eventual outpatient pulmonary follow-up
Patient is stable for downgrade out of ICU to telemetry. Modeling And Simulation Analyst/pulmonary service will now sign off. Thank you for allowing us to be involved in the care of this patient. Please reconsult if there are any additional questions/concerns, or if
patient's respiratory status deteriorates.
Diagnostic data:
Chest x-ray 12/04/2023-focal opacification medial aspect left lower lobe likely atelectasis, no evidence for pulmonary edema
CTA chest 12/04/2023-pulmonary embolism distal aspect left main pulmonary artery, additional small emboli within the right lower lobe and right upper lobe, right ventricle is enlarged suggesting right ventricular strain
CT head 12/04/2023-no evidence for acute intracranial abnormalities, multiple regions of old infarct, moderate to severe leukomalacia, mild to moderate diffuse atrophy
CT head neck angiogram 12/04/2023-bilateral carotid bulb and proximal ICA calcification, hypoplastic right A1 segment anterior cerebral artery, luminal irregularities and calcifications involving M1 portion of the middle cerebral arteries
bilaterally, no evidence for large vessel occlusion or high-grade stenosis, just at the inferior margin of included aguilar there is a concern for left-sided pulmonary artery embolization
CT head 12/05/2023-No evidence for acute intracranial abnormalities
Brain MRI 12/06/2023: Focal area of acute to subacute infarction involving the left temporal lobe. There are also small foci of acute to subacute infarction involving the left cerebellar hemisphere, the left posterior occipital lobe, and the white
matter of the left parieto-occipital junction. Multiple regions of old infarction as described. Moderate atrophy. Severe leukomalacia.
Lower extremity ultrasound 12/05/2023-no evidence for DVT bilaterally
Total time spent today was 75 minutes for this encounter. Time includes reviewing laboratory test/imaging results, reviewing pertinent medical records, obtaining and reviewing medical history, performing an appropriate exam, ordering medications,
tests and procedures. Time also includes documentation of this encounter, coordinating patient care and communicating with other healthcare professionals. Total time does not include separately billed tests performed on this date of service.
Subjective Dataa
Subjective Data
Date of Service:
Date of Service: December 06, 2023
Chief Complaint: Modeling And Simulation Analyst Follow Up
Subjective:
Patient seen and evaluated this morning. On room air breathing comfortably, saturating 93%, heart rate 82 and breathing at 19 breaths/min with BP 135/40. Still having slurred speech. NIHSS this AM is 17. Remains on heparin gtt - no bleeding seen
clinically.
Review of Systems
General: Other (Unable to obtain given patient's acute clinical status/dysarthria)
Objective Data
Data Reviewed
Vital Signs / I&O / Oxygen:
Vital Signs
Temp Pulse Resp BP Pulse Ox
98.2 F 75 15 132/83 92
12/06/23 07:15 12/06/23 07:36 12/06/23 07:36 12/06/23 07:36 12/06/23 07:19
Intake and Output
12/05/23 12/06/23 12/07/23
06:59 06:59 06:59
Intake Total 420 / 480 1557 / 1630 146 / 146
Output Total 175 / 175 650 / 650
Balance 245 / 305 907 / 980 146 / 146
SaO2 92
Nasal Cannula flow liters per 2
minute
Physical Exam
General: Respiratory Distress (negative), Comfortable and Chills (negative)
HEENT: Normocephalic and Anicteric
Cardiovascular: S1-S2 and Peripheral Edema (negative)
Respiratory: Wheeze (negative), Crackles (negative), Rhonchi (negative) and Non-Labored Respirations
GI: Soft, Non Distended, Non Tender and Normal Bowel Sounds
Neurology: Tremors (negative), Other (Lethargic but easily arousable to voice/tactile stimulation) and Other (Limited neurological exam due to chronic left-sided paresis as well as acute CVA: Right hand drapery rod assembler strength 4/5, right foot plantarflexion:
3/5; right foot dorsiflexion: 2/5; minimally able to move left upper extremity/left lower extremity; able to protrude tongue and moved to the right)
Skin: Warm, Dry, Jaundice (negative) and Rash (negative)
Labs/Micro/Reports
Lab Data
12/06/23 03:07
12/06/23 03:07
Laboratory Results
12/05/23 12/05/23 12/06/23
18:00 20:15 03:06
PT 15.3 H
INR 1.23
APTT Cancelled 24.4 95.9 H
[2023-12-06] MEDS: HEPARIN 25000 UNITS/250 ML IV (08:04)
[2023-12-06 11:42] LABS: Glucose - Point of Care 138 mg/dl (70-99)
--- NOTE | 2023-12-06 12:28 | PTCARENOTE ---
Pt. transported via bed to MRI and back to rm [id number] this AM. Brain MRI results reviewed by Hospitalist and Welfare Service Aide MDs, awaiting neurology input. Dr. Galvan @ bedside, updated pt.'s son on results. Neuro status remains unchanged. Plan today
for speech public policy mediator, awaiting eval. Assisted w oral care; NPO status maintained. Remains on IVF and heparin gtt- see flow sheet. Safe environment maintained.
--- NOTE | 2023-12-06 13:59 | W.PN.HOSP.TC ---
Today's Communication/Plan
-
Monitor vital signs see plan
Neurology to see today
Continue heparin drip
Speech to see
Son updated at bedside
Assessment / Plan
Assessment / Plan
CT head
There is a focal area of CSF density in the right parietal lobe posterolaterally, and also extending to involve the posterior right occipital lobe, and these findings are compatible with encephalomalacia from old infarction.
There is also a small focus of CSF density in the anteromedial left thalamus, compatible with old infarction.
Focal area of decreased density involving loss in the posterior left occipital lobe, compatible with old infarction.
There is also a focal area of volume loss and decreased density involving the anteromedial right frontal lobe, as seen on image 19 of series 204, compatible with old infarction. Small foci of decreased density within the cerebellar hemispheres,
which likely represent small old infarct.
Moderate to severe leukomalacia is present.
Mild to moderate diffuse atrophy.
There is no evidence of acute intracranial hemorrhage. There is no midline shift.
There is significant calcification of the internal carotid arteries and middle cerebral arteries bilaterally. There is no CT evidence for a focal area of acute to subacute infarction.
The visualized paranasal sinuses appear clear. The mastoid air cells appear clear
CT chest PE
There is embolus in the distal aspect of the left main pulmonary artery, and extending into the interlobar and left lower lobe pulmonary arteries. Involvement of segmental branch within the left upper lobe and also probably involvement of the
lingular branches. Additionally, there appears to be a small embolus within a segmental branch within the right lower lobe. No evidence for embolus within the right main pulmonary artery. Possible embolus within the right anterior subsegmental
branch within the right upper lobe. The right ventricle is enlarged with deviation of the interventricular septum toward the left, findings suggesting right heart strain.
The thoracic aorta is fairly well opacified. There is mild to moderate atherosclerotic disease of the thoracic aorta. The aortic root appears prominent with transverse dimension of 4.2 cm. The ascending aorta is within normal limits of caliber. No
significant dilation of the aortic arch or the descending thoracic aorta.
There is no significant pleural effusion and no significant pericardial effusion.
Band of linear atelectasis within the posterior right lower lung. Mild dependent atelectasis in the posterior left lower lung.
No significant abnormality in the visualized upper abdomen.
Minimal dextroconvex scoliosis of the thoracic spine. Mild changes of degenerative disc disease with no evidence for compression fracture. Increased kyphosis centered at the cervicothoracic junction.
CTA H&N
Bilateral carotid bulb and proximal ICA calcification, with no evidence for hemodynamically significant stenosis.
Hypoplastic right A1 segment of the anterior cerebral artery.
Luminal irregularity and calcification involving the M1 portions of the middle cerebral arteries bilaterally, with no evidence for large vessel occlusion/high-grade stenosis.
Luminal irregularity of the posterior cerebral arteries bilaterally, compatible with multifocal mild to moderate stenoses. No evidence for significant narrowing of the vertebral or basilar arteries

slurred speech likely 2/2 acute/subacute CVA
Concern for new CVA
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
Residual left-sided weakness/vision loss
-Patient came in with question of new onset of dysarthria/speech changes
-CT head showing diffuse old infarct, no new bleed
-CTA head and neck done which did not show any large thrombus. Diffuse vascular changes as mentioned above on the report.
s/p TNK on admission
neurology follloiwng
MRI with acute/subacute infarction involving the left cerebellar hemisphere, left posterior occipital lobe and white matter of the left parietal occipital junction.
-Repeat CT head done in the night did not show any any brain bleed
-Currently patient being monitored in ICU
-Due to PE and simultaneous stroke concern of septal defect/ASD, echocardiogram with bubble study ordered
-Neurology following and help appreciated
speech following; NPO for now; speech to reevaluate again today
Bilateral PE - submassive
Right heart strain
per son at bedside; patient is notvery ambulatory after his previous CVA; suspect lifelong AC
-Patient had diffuse bilateral PE on CT chest PE, also concern of RV strain by imaging standard
-Vitally patient stable and not tachycardic/not hypotensive
-Patient got 1/3 dose of TNK that he would have gotten for primary PE thrombolysis
-Lower extremity venous Doppler has ruled out any DVT
cw heparin gtt; eventually DOAC once ok with neurology and ICU
hx of diabetes
on metformin
A1c 6.6
cw accuchecks
Acute TME
-Baseline unknown
-Patient has been started on Keppra by neurology, likely can be discontinued if neurology agreement
-Avoid sedative meds.
Leukocytosis w/o fever
-reactive in nature, monitor off abx
-Chest x-ray questioning lower basilar infiltrate although likely atelectatic changes
-Septic workup including cultures antibiotic precardiac having a new fever
Dysphagia
-Speech therapy evaluated and patient to be maintained n.p.o. for now
-Maintenance slow IV fluid
HTN
Currently n.p.o., if able to tolerate p.o. then will start lisinopril and amlodipine that he is on
Labetalol as needed
DVT PPX - heparin
Full code
General: No Apparent Distress and Comfortable
HEENT: Negative Oxygen
Respiratory: Clear to Auscultation
Cardiac: Regular Rhythm and S1/S2; Negative Murmur or Rub
GI: Soft, Nontender and Nondistended
Musculoskeletal: No Edema
Neuro: Other (Left arm weakness); Negative Awake
Psych: Calm
Total Critical Care Time 41 minutes. I was immediately available to the patient and staff. I personally examined, reviewed labs, diagnostic images/reports, interpretations, treatment plans, discussed patient care with other providers and family
or caregivers (if patient is unable to make decisions), entered orders as appropriate and documented the medical record.
Anticipated Discharge: > 48 hours
Subjective/Interval History
-
Date of Service: December 06, 2023
denies pain
Objective Data
-
Labs:
Laboratory Results
12/06/23 12/06/23 12/06/23
03:06 03:07 09:28
WBC 9.2
Hgb 13.8
Hct 38.1 L
Plt Count 218
PT 15.3 H
INR 1.23
APTT 95.9 H 119.0 H
Sodium 144
Potassium 3.8
Chloride 108 H
Carbon Dioxide 23
BUN 15
Creatinine 0.6 L
Glucose 126 H
Calcium 8.8
12/06/23
16:00
WBC
Hgb
Hct
Plt Count
PT
INR
APTT Pending
Sodium
Potassium
Chloride
Carbon Dioxide
BUN
Creatinine
Glucose
Calcium
Vital Signs:
Vital Signs
Temp Pulse Resp BP Pulse Ox
98.3 F 78 16 152/98 92
12/06/23 11:04 12/06/23 12:00 12/06/23 12:00 12/06/23 12:00 12/06/23 11:00
I&O
12/05/23 12/06/23 12/07/23
06:59 06:59 06:59
Intake Total 420 / 480 1557 / 1630 508 / 508
Output Total 175 / 175 650 / 650 150 / 150
Balance 245 / 305 907 / 980 358 / 358
--- NOTE | 2023-12-06 14:45 | PTOTSP ---
Speech Language Pathology
Pt seen for speech/language evaluation. Mild dysarthria noted. Language evaluated via the Quick Aphasia Battery (QAB), form 1. Pt with an overall score of 4.34, indicative of severe deficits. Phonemic and semantic paraphasias noted at times, as
well as jargon. Significant L inattention noted, making reading and confrontation naming difficult. When asked to talk about his family, pt stated 'One of my kids. Is one of my daughters. She is 17 years old and she walks like an [place].'
Pt also seen for dysphagia tx. Provided trials of ice chips, puree, regular solids, and thin liquids. Cognitive deficits negatively impacted ability to appropriately accept P.O. Sticking tongue out in response to ice and puree at times. Pt
edentulous. He stated he has dentures, but not found in room. Prolonged mastication of regular solids noted with no attempts to swallow. Suspect continued mastication was perseverative in nature. Had to suction from oral cavity given no swallow
initiation. No overt signs of aspiration. Unable to rule out silent aspiration bedside.
Recommend:
(1) VSE 12/06
(2) IDDSI Level 4 (Puree) and Thin Liquids pending VSE
(3) Aspiration precautions: slow rate, sit upright, single sips
(4) Meds crushed in puree
(5) If any signs of aspiration, revert to NPO
(6) MANAGER LAND to continue to follow for dysphagia, dysarthria, and aphasia
--- NOTE | 2023-12-06 15:52 | CM ---
CM reviewed chart- ADC >48 hours
Remains in ICU
TT/Dr Galvan- will require new PT/OT orders once medically appropriate.
Prior CM notes indicates pt interest in [facility]
CM will continue to follow for dc planning
Discharge Disposition- TBD, anticipate acute vs SNF
[2023-12-06 16:20] LABS: APTT 109.4 Sec (23.4-35.0)
[2023-12-06] MEDS: LIPITOR 40 MG PO (17:41)
[2023-12-06] MEDS: LEXAPRO 20 MG PO (17:41)
[2023-12-06] MEDS: LOW STRENGTH ASPIRIN 81 MG PO (17:41)
[2023-12-06] MEDS: NOVOLOG FLEXPEN-LOW RESISTANCE SC (17:47)
[2023-12-06 17:58] LABS: Glucose - Point of Care 128 mg/dl (70-99)
--- NOTE | 2023-12-06 18:25 | PTCARENOTE ---
Pt. seen by ASSURANCE SOURCING MANAGER this afternoon, diet advanced to pureed w thins; Tolerating advanced diet, occasional cough @ end of meal; poor appetite; plan for VSE tomorrow per ASSURANCE SOURCING MANAGER. Pt.'s @ bedside, updated on plan of care. Safe environment maintained.
--- NOTE | 2023-12-06 20:00 | PTCARENOTE ---
Rec'd pt resting in bed, at [facility], NIH 16, aphasic, slight movement left side, R leg weak, slight Left facial droop, SR, weak distal pulses, skin warm/dry, Ra, lungs decr in bases, sat 95, + bowel sounds,no bm, abd soft, no n/v, #21 condom
cath on- voiding adolfo urine,heparin gtt at 1200 units/hr
[2023-12-06 21:59] LABS: Glucose - Point of Care 194 mg/dl (70-99)
[2023-12-06 22:12] LABS: APTT 106.9 Sec (23.4-35.0)
--- NOTE | 2023-12-06 23:41 | PTCARENOTE ---
sys reviewed, changes noted, CHG bath done, linens changed
[2023-12-07] VITALS (21 sets, daily range): BP systolic 101–149; BP diastolic 54–90; PULSE 63–68; O2SAT 91; BMI 27.3; BMI 25.2
[2023-12-07 03:47] LABS: % Basophils 0.8 % (0-2); % Eosinophils 3.9 % (0-6); % Immature Granulocytes 0.4 % (0-0.5); % Lymphocytes 31.9 % (20.5-51.1); % Monocytes 10.6 % (1.7-9.3); % Neutrophils 52.4 % (42.2-75.2); Absolute Basophils 0.1 10^3/uL (0-0.2); Absolute Eosinophils 0.3 10^3/uL (0-0.7); Absolute Lymphocytes 2.4 10^3/uL (1.2-3.4); Absolute Monocytes 0.8 10^3/uL (0.1-0.6); Hematocrit 33.8 % (39.0-52.0); Hemoglobin 12.2 g/dL (13.0-18.0); Mean Corp Hgb Conc. 36.1 g/dL (33.0-37.0); Mean Corpuscular Hgb 29.8 pg (27.0-31.0); Mean Corpuscular Volume 82.4 fL (80.0-94.0); Mean Platelet Volume 9.9 fL (7.4-10.4); Nucleated Red Blood Cells % 0 % (-); Platelet Count 187 10^3/uL (130-400); Red Cell Dist. Width 12.5 % (11.5-14.5); White Blood Cell Count 7.6 10^3/uL (4.8-10.8)
[2023-12-07 03:59] LABS: APTT 128.9 Sec (23.4-35.0)
[2023-12-07 05:02] LABS: Blood Urea Nitrogen 12 mg/dl (9-20); Calcium 8.6 mg/dl (8.4-10.2); Carbon Dioxide 24 mmol/L (22-30); Chloride 106 mmol/L (98-107); Estimated Creatinine Clearance 105 ml/min; Glucose 113 mg/dl (70-99); Magnesium 1.7 mg/dl (1.6-2.3); Phosphorus 3.4 mg/dl (2.5-4.5); Potassium 3.6 mmol/L (3.5-5.1); Sodium 141 mmol/L (135-145); eGFR > 60.00
[2023-12-07] MEDS: HEPARIN 25000 UNITS/250 ML IV (05:51)
[2023-12-07] MEDS: PROTONIX 40 MG PO (07:29)
[2023-12-07] MEDS: LEXAPRO 20 MG PO (07:29)
[2023-12-07] MEDS: ZESTRIL 20 MG PO (07:29)
[2023-12-07] MEDS: NORVASC 5 MG PO (07:29)
[2023-12-07] MEDS: LOW STRENGTH ASPIRIN 81 MG PO (07:29)
[2023-12-07] MEDS: NSS (PRESERVATIVE FREE) IV (07:30)
--- NOTE | 2023-12-07 07:30 | PTCARENOTE ---
Received pt @ change of shift. Pt. drowsy, awakens to verbal stimuli. NIH=16, scored for baseline L sided deficits/slight L facial droop from previous CVA; mild aphasia/mild slurring. Commands following more consistent and aphasia noted to be
improved from yesterday @ this time. SR on monitor. SpO2 96% on RA. Afebrile. +BS, abd soft, nt. Meds crushed in puree, tolerating; mouth care provided per protocol. Inc bladder, #[address] draining yellow urine. LE psoriasis. #20 L AC w
heparin gtt infusing- see flow sheet. # 22 R wrist patent, dressing c/d/i. Bed alarm active. Instructed on how to report care concerns and call haley placed w in reach.
[2023-12-07] MEDS: NOVOLOG FLEXPEN-LOW RESISTANCE SC ×2 (07:37→11:18)
[2023-12-07 07:47] LABS: Glucose - Point of Care 113 mg/dl (70-99)
--- NOTE | 2023-12-07 09:24 | CM ---
Patient out of room to video swallow per nursing will continue to follow for discharge planning needs.
--- NOTE | 2023-12-07 09:25 | PTOTSP ---
Video Swallow Examination
Significant oral phase dysphagia with prolonged/disorganized oral processing (worse with increased density of contrast), delayed AP transfer initiation, and mild to moderate oral stasis (worse with increased density of contrast). No aspiration but
risk elevated due to motor planning deficits.
Recommend:
(1) IDDSI Level 4 (Puree) and Thin Liquids
(2) Supervision and assist to feed as needed given motor planning and initiation difficulty.
(3) Aspiration precautions: slow rate, sit upright, single sips
(4) Meds crushed in puree
ST will follow
--- NOTE | 2023-12-07 10:43 | PTCARENOTE ---
Pt. transported via stretcher on court monitor to [facility] and back to . Pt. maintained on recommended diet from SHELL MAKER LOCKSTITCH; appetite poor. Repositioned per protocol. Bed alarm active. Safe environment maintained.
[2023-12-07 10:56] LABS: APTT 114.5 Sec (23.4-35.0)
[2023-12-07 11:29] LABS: Glucose - Point of Care 129 mg/dl (70-99)
[2023-12-07] MEDS: MIRALAX 17 GRAMS PO (12:42)
--- NOTE | 2023-12-07 12:55 | W.PN.NEURO.1 ---
Today's Communication / Plan
-
.
Neuro Assessment/Plan
Assessment
68 yr. 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
CTA showed left pulmonary artery embolism
Plan
Serial CT head.
IV Heparin @ 9P. No Bolus
Hold Keppra
PT/OT
Speech therapy
Subjective/Objective
Subjective Data
Date of Service: December 07, 2023
Neurology follow-up note
CC: none
HPI: This is a 68-year-old right-handed man who presented to [facility] on December 04, 2023 with dysarthria.
The patient was found to have an acute to subacute left MCA/SCA territory infarct as well as pulmonary embolism and was started on heparin gtt. reports of headaches, change in motor strength or new sensory deficits.
Brain MRI without gadolinium (12/06/2023)�acute/subacute left MCA/L SCA territory infarcts, chronic L FOOD SCIENCE PROFESSOR/MCA large infarct, chronic bilateral cerebellar, thalamic, lentiform nuclei infarcts. Moderate atrophy and severe leukoaraiosis.
CTA head/neck(12/04/2023) Luminal irregularity and calcification involving the M1 portions of the middle cerebral arteries bilaterally, with no evidence for large vessel occlusion/high-grade stenosis.
multifocal mild to moderate BL FOOD SCIENCE PROFESSOR stenoses.
TTE-PFO
LE DOpper US(12/05/2023) no evidence for deep venous thrombosis bilaterally.
LDL-82, HbA1C 6.6
PMH: chronic strokes, HTN, DLP, DM, cognitive deficits
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
FH: Unknown
All:NKDA
ROS: Positive for chronic cognitive deficits. Negative for headache, change in vision or strength
General: Well developed. In no acute distress.
Cardio: Regular rate and rhythm without murmur. Extremities are without cyanosis or edema.
Neuro:
Mental Status: Alert, oriented to name only. Did not know his age, number of children. Not know the year, name of the president, month or season. Increased processing time follows simple requests consistently poor attention and comprehension.
Nonfluent. Simple requests.
Cranial Nerves: Pupils are equally round and reactive to light. EOMs full. Left homonymous hemianopia. No ptosis. No nystagmus. Face symmetric. Normal hearing AU. The palate elevated well. SCMs and traps 5/5. Tongue midline. No dysarthria.
Motor: Left hemiplegia
Reflexes: Grasp on the right
Sensory: Limited exam due to inattention.
Coordination: No tremors myoclonic movements
Gait: Nonambulatory
Assessment and Plan:
I. Acute/subacute MCA/L SCA stroke. Likely etiology�embolic. Intracranial atherosclerosis. PFO
II. Chronic multi territorial bihemispheric infarcts
III. Multifactorial encephalopathy (vascular (strokes), ?neurodegenerative)
IV. Pulmonary embolism
-Continue Telemetry monitoring.
-Fall and aspiration precautions
-No objection to switching to oral systemic anticoagulation.
-Continue Lipitor 40 mg once
-Thrombophilia work up
-Cardiology consult for ILR if AC for PE is temporary.
-Loop recorder if no events of Telemetry and normal MARGAUX.
-Please check vit B12, TFTs
-DVT prophylaxis.
I personally reviewed all radiology and labs along with past medical records pertinent to current medical problems. Total time spent in patient care is 35 minutes.
Thank you for allowing us to participate in the care of this patient. We will continue to follow. Please do not hesitate to contact us with any questions or concerns.
Objective Data
Vital Signs
Temp Pulse Resp BP Pulse Ox
36.7 C 61 21 129/66 95
12/07/23 11:11 12/07/23 07:48 12/07/23 07:48 12/07/23 07:48 12/07/23 07:50
Lab Results
12/07/23 03:36
12/07/23 03:36
PT 15.3 Sec (11.4-14.6) H 12/06/23 03:06
INR 1.23 12/06/23 03:06
APTT 114.5 Sec (23.4-35.0) H 12/07/23 10:18
Sodium 141 mmol/L (135-145) 12/07/23 03:36
Potassium 3.6 mmol/L (3.5-5.1) 12/07/23 03:36
BUN 12 mg/dl (9-20) 12/07/23 03:36
Glucose 113 mg/dl (70-99) H 12/07/23 03:36
Calcium 8.6 mg/dl (8.4-10.2) 12/07/23 03:36
Phosphorus 3.4 mg/dl (2.5-4.5) 12/07/23 03:36
LDL Cholesterol, Calc 82 mg/dl 12/05/23 03:51
Patient Allergies
No Known Allergies Allergy (Unverified 12/04/23 20:30)
--- NOTE | 2023-12-07 13:21 | W.PN.HOSP.TC ---
Addendum entered and electronically signed by Lopez Galvan MD 12/07/23 13:57:
Discussed with neurology. Okay with 10 mg twice daily Eliquis dosing. Will start Eliquis this evening and will stop heparin at that time.
Original Note:
Today's Communication/Plan
-
Monitor vital signs see plan
Speech following
Transition to Eliquis if okay with neurology; ideally should be 10mg BID (starting dose) if ok with neurology. if bleeding risk is high then can do 5mg BID
cw BP meds
miralax
Assessment / Plan
Assessment / Plan
CT head
There is a focal area of CSF density in the right parietal lobe posterolaterally, and also extending to involve the posterior right occipital lobe, and these findings are compatible with encephalomalacia from old infarction.
There is also a small focus of CSF density in the anteromedial left thalamus, compatible with old infarction.
Focal area of decreased density involving loss in the posterior left occipital lobe, compatible with old infarction.
There is also a focal area of volume loss and decreased density involving the anteromedial right frontal lobe, as seen on image 19 of series 204, compatible with old infarction. Small foci of decreased density within the cerebellar hemispheres,
which likely represent small old infarct.
Moderate to severe leukomalacia is present.
Mild to moderate diffuse atrophy.
There is no evidence of acute intracranial hemorrhage. There is no midline shift.
There is significant calcification of the internal carotid arteries and middle cerebral arteries bilaterally. There is no CT evidence for a focal area of acute to subacute infarction.
The visualized paranasal sinuses appear clear. The mastoid air cells appear clear
CT chest PE
There is embolus in the distal aspect of the left main pulmonary artery, and extending into the interlobar and left lower lobe pulmonary arteries. Involvement of segmental branch within the left upper lobe and also probably involvement of the
lingular branches. Additionally, there appears to be a small embolus within a segmental branch within the right lower lobe. No evidence for embolus within the right main pulmonary artery. Possible embolus within the right anterior subsegmental
branch within the right upper lobe. The right ventricle is enlarged with deviation of the interventricular septum toward the left, findings suggesting right heart strain.
The thoracic aorta is fairly well opacified. There is mild to moderate atherosclerotic disease of the thoracic aorta. The aortic root appears prominent with transverse dimension of 4.2 cm. The ascending aorta is within normal limits of caliber. No
significant dilation of the aortic arch or the descending thoracic aorta.
There is no significant pleural effusion and no significant pericardial effusion.
Band of linear atelectasis within the posterior right lower lung. Mild dependent atelectasis in the posterior left lower lung.
No significant abnormality in the visualized upper abdomen.
Minimal dextroconvex scoliosis of the thoracic spine. Mild changes of degenerative disc disease with no evidence for compression fracture. Increased kyphosis centered at the cervicothoracic junction.
CTA H&N
Bilateral carotid bulb and proximal ICA calcification, with no evidence for hemodynamically significant stenosis.
Hypoplastic right A1 segment of the anterior cerebral artery.
Luminal irregularity and calcification involving the M1 portions of the middle cerebral arteries bilaterally, with no evidence for large vessel occlusion/high-grade stenosis.
Luminal irregularity of the posterior cerebral arteries bilaterally, compatible with multifocal mild to moderate stenoses. No evidence for significant narrowing of the vertebral or basilar arteries

slurred speech likely 2/2 acute/subacute CVA
Concern for new CVA
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
Residual left-sided weakness/vision loss
-Patient came in with question of new onset of dysarthria/speech changes
-CT head showing diffuse old infarct, no new bleed
-CTA head and neck done which did not show any large thrombus. Diffuse vascular changes as mentioned above on the report.
s/p TNK on admission
neurology follloiwng
MRI with acute/subacute infarction involving the left cerebellar hemisphere, left posterior occipital lobe and white matter of the left parietal occipital junction.
-Repeat CT head done in the night did not show any any brain bleed
-Currently patient being monitored in ICU
-Due to PE and simultaneous stroke concern of septal defect/ASD, echocardiogram 12/05 with no significant valvular disease. Dilated aortic root 4.1 cm.
-Neurology following and help appreciated
speech following; pureeed diet; VSE 12/06. monitor
cw hep gtt; transition to eliquis if ok with neurology
Bilateral PE - submassive
Right heart strain
per son at bedside; patient is notvery ambulatory after his previous CVA; suspect lifelong AC
-Patient had diffuse bilateral PE on CT chest PE, also concern of RV strain by imaging standard
-Vitally patient stable and not tachycardic/not hypotensive
-Patient got 1/3 dose of TNK that he would have gotten for primary PE thrombolysis
-Lower extremity venous Doppler has ruled out any DVT
cw heparin gtt; eventually DOAC once ok with neurology and ICU
hx of diabetes
on metformin
A1c 6.6
cw accuchecks
Acute TME
-Baseline unknown
-Patient has been started on Keppra by neurology, likely can be discontinued if neurology agreement
-Avoid sedative meds.
Leukocytosis w/o fever
-reactive in nature, monitor off abx
-Chest x-ray questioning lower basilar infiltrate although likely atelectatic changes
-Septic workup including cultures antibiotic precardiac having a new fever
Dysphagia
-Speech following
HTN
Continue lisinopril, amlodipine
Labetalol as needed
DVT PPX - heparin
Full code
General: No Apparent Distress and Comfortable
HEENT: Negative Oxygen
Respiratory: Clear to Auscultation
Cardiac: Regular Rhythm and S1/S2; Negative Murmur or Rub
GI: Soft, Nontender and Nondistended
Musculoskeletal: No Edema
Neuro: Other (Left arm weakness); Negative Awake
Psych: Calm
I spent a total of 51 minutes with the patient or on the floor. More than 50% of this time involved counseling and coordination of care.
Anticipated Discharge: > 48 hours
Subjective/Interval History
-
Date of Service: December 07, 2023
denies pain
Objective Data
-
Labs:
Laboratory Results
12/07/23 12/07/23 12/07/23
03:36 10:18 17:00
WBC 7.6
Hgb 12.2 L
Hct 33.8 L
Plt Count 187
APTT 128.9 H 114.5 H Pending
Sodium 141
Potassium 3.6
Chloride 106
Carbon Dioxide 24
BUN 12
Creatinine 0.6 L
Glucose 113 H
Calcium 8.6
Vital Signs:
Vital Signs
Temp Pulse Resp BP Pulse Ox
98.0 F 61 21 129/66 95
12/07/23 11:11 12/07/23 07:48 12/07/23 07:48 12/07/23 07:48 12/07/23 07:50
I&O
12/06/23 12/07/23 12/08/23
06:59 06:59 06:59
Intake Total 1557 / 1630 1310 / 1321 54 / 54
Output Total 650 / 650 450 / 450
Balance 907 / 808 860 / 871 54 / 54
[2023-12-07 17:22] LABS: Glucose - Point of Care 179 mg/dl (70-99)
[2023-12-07 17:29] LABS: APTT 81.5 Sec (23.4-35.0)
[2023-12-07] MEDS: LIPITOR 40 MG PO (17:46)
[2023-12-07] MEDS: NOVOLOG FLEXPEN-LOW RESISTANCE 1 UNITS SC (17:52)
[2023-12-07 19:18] LABS: TSH Reflex To Free T4 2.55 uIU/ml (0.47-4.68)
[2023-12-07 19:37] LABS: Vitamin B12 949 pg/ml (239-931)
[2023-12-07] MEDS: ELIQUIS 10 MG PO (19:51)
--- NOTE | 2023-12-07 20:02 | PTCARENOTE ---
rec'd pt awake, alert, NIH 17, aphagia improved from previous night, heparing gtt off after started elequis, report given to floor RN
--- NOTE | 2023-12-07 20:45 | PTCARENOTE ---
transferred to [facility] via bed on tele pack accop by self, [facility] done w/ Davina RN
--- NOTE | 2023-12-07 21:14 | PTCARENOTE ---
Patient arrived to unit from ICU at approximately 2044. Report received from Maia PAIZ. NIH stroke scale done at bedside with both RNs, see charting for score. Call haley within reach. Bed alarm on. Fall risk education provided.
[2023-12-07 21:27] LABS: Glucose - Point of Care 166 mg/dl (70-99)
[2023-12-08] VITALS (7 sets, daily range): BP systolic 141–169; BP diastolic 68–94; PULSE 74; O2SAT 96
[2023-12-08] MEDS: TRANDATE 10 MG IV (04:13)
[2023-12-08 07:22] LABS: % Basophils 0.9 % (0-2); % Eosinophils 4.2 % (0-6); % Immature Granulocytes 0.3 % (0-0.5); % Lymphocytes 22.5 % (20.5-51.1); % Monocytes 10.6 % (1.7-9.3); % Neutrophils 61.5 % (42.2-75.2); Absolute Basophils 0.1 10^3/uL (0-0.2); Absolute Eosinophils 0.3 10^3/uL (0-0.7); Absolute Lymphocytes 1.5 10^3/uL (1.2-3.4); Absolute Monocytes 0.7 10^3/uL (0.1-0.6); Absolute Neutrophils 4.1 10^3/uL (1.4-6.5); Hematocrit 35.7 % (39.0-52.0); Hemoglobin 12.7 g/dL (13.0-18.0); Mean Corp Hgb Conc. 35.6 g/dL (33.0-37.0); Mean Corpuscular Hgb 30.1 pg (27.0-31.0); Mean Corpuscular Volume 84.6 fL (80.0-94.0); Nucleated Red Blood Cells % 0 % (-); Platelet Count 186 10^3/uL (130-400); Red Blood Cell Count 4.22 10^6/uL (4.70-6.10); Red Cell Dist. Width 12.5 % (11.5-14.5); White Blood Cell Count 6.7 10^3/uL (4.8-10.8)
[2023-12-08 07:51] LABS: Blood Urea Nitrogen 13 mg/dl (9-20); Calcium 8.7 mg/dl (8.4-10.2); Carbon Dioxide 27 mmol/L (22-30); Chloride 103 mmol/L (98-107); Estimated Creatinine Clearance 100 ml/min; Glucose 132 mg/dl (70-99); Potassium 3.6 mmol/L (3.5-5.1); Sodium 142 mmol/L (135-145); eGFR > 60.00
[2023-12-08 08:09] LABS: Glucose - Point of Care 148 mg/dl (70-99)
[2023-12-08] MEDS: NOVOLOG FLEXPEN-LOW RESISTANCE SC (08:40)
[2023-12-08] MEDS: ELIQUIS 10 MG PO ×2 (08:42→20:15)
[2023-12-08] MEDS: MIRALAX PO ×2 (08:43→08:57)
[2023-12-08] MEDS: LOW STRENGTH ASPIRIN 81 MG PO (08:43)
[2023-12-08] MEDS: NORVASC 5 MG PO (08:43)
[2023-12-08] MEDS: LEXAPRO 20 MG PO (08:43)
[2023-12-08] MEDS: PROTONIX 40 MG PO (08:44)
[2023-12-08] MEDS: ZESTRIL 20 MG PO (08:44)
[2023-12-08] MEDS: NSS (PRESERVATIVE FREE) IV (08:44)
--- NOTE | 2023-12-08 09:37 | W.PN.NEURO.1 ---
Today's Communication / Plan
-
.
Subjective/Objective
Subjective Data
Date of Service: December 08, 2023
Neurology follow-up note
24-hour events: Intermittently hypertensive, afebrile. The patient reports no complaints. Patient was transitioned to [facility] yesterday. No reports of headaches, change in strength or new sensorimotor deficits.
Brain MRI without gadolinium (12/06/2023)�acute/subacute left MCA/L SCA territory infarcts, chronic L RECORDIST/MCA large infarct, chronic bilateral cerebellar, thalamic, lentiform nuclei infarcts. Moderate atrophy and severe leukoaraiosis.
CTA head/neck(12/04/2023) Luminal irregularity and calcification involving the M1 portions of the middle cerebral arteries bilaterally, with no evidence for large vessel occlusion/high-grade stenosis.
multifocal mild to moderate BL RECORDIST stenoses.
TTE-PFO
LE DOpper US(12/05/2023) no evidence for deep venous thrombosis bilaterally.
LDL-82, HbA1C 6.6
PMH: chronic strokes, HTN, DLP, DM, cognitive deficits
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
FH: Unknown
All:NKDA
ROS: Positive for chronic cognitive deficits. Negative for headache, change in vision or strength
General: Well developed. In no acute distress.
Cardio: Regular rate and rhythm without murmur. Extremities are without cyanosis or edema.
Neuro:
Mental Status: Alert, oriented to name only. Did not know his age, number of children. Not know the year, name of the president, month or season. Increased processing time follows simple requests consistently poor attention and comprehension.
Nonfluent. Simple requests.
Cranial Nerves: Pupils are equally round and reactive to light. EOMs full. Left homonymous hemianopia. No ptosis. No nystagmus. Face symmetric. Normal hearing AU. The palate elevated well. SCMs and traps 5/5. Tongue midline. No dysarthria.
Motor: Left hemiplegia
Reflexes: Grasp on the right
Sensory: Limited exam due to inattention.
Coordination: No tremors myoclonic movements
Gait: Nonambulatory
Assessment and Plan:
I. Acute/subacute MCA/L SCA stroke. Likely etiology�embolic. Intracranial atherosclerosis. PFO
II. Chronic multi territorial bihemispheric infarcts
III. Multifactorial encephalopathy (vascular (strokes), ?neurodegenerative)
IV. Pulmonary embolism
-Continue Telemetry monitoring.
-Lipitor 40 mg QHS
-Continue Eliquis for PE
-Thrombophilia work up
-Cardiology consult for MARGAUX and ILR if AC for PE is temporary.
-Please check vit B12, TFTs
-DVT prophylaxis.
I personally reviewed all radiology and labs along with past medical records pertinent to current medical problems. Total time spent in patient care is 40 minutes.
Thank you for allowing us to participate in the care of this patient. We will continue to follow. Please do not hesitate to contact us with any questions or concerns.
Objective Data
Vital Signs
Temp Pulse Resp BP Pulse Ox
37.1 C 70 18 148/73 94
12/08/23 07:42 12/08/23 08:43 12/08/23 07:42 12/08/23 08:43 12/08/23 07:42
Lab Results
12/08/23 06:37
12/08/23 06:37
PT 15.3 Sec (11.4-14.6) H 12/06/23 03:06
INR 1.23 12/06/23 03:06
APTT 81.5 Sec (23.4-35.0) H 12/07/23 17:10
Sodium 142 mmol/L (135-145) 12/08/23 06:37
Potassium 3.6 mmol/L (3.5-5.1) 12/08/23 06:37
BUN 13 mg/dl (9-20) 12/08/23 06:37
Glucose 132 mg/dl (70-99) H 12/08/23 06:37
Calcium 8.7 mg/dl (8.4-10.2) 12/08/23 06:37
Phosphorus 3.4 mg/dl (2.5-4.5) 12/07/23 03:36
LDL Cholesterol, Calc 82 mg/dl 12/05/23 03:51
Vitamin B12 Cancelled 12/07/23 15:58
Vitamin B12 Cancelled 12/07/23 15:58
Patient Allergies
No Known Allergies Allergy (Unverified 12/04/23 20:30)
--- NOTE | 2023-12-08 11:38 | CON.CAR ---
Addendum entered and electronically signed by Jeovany Mai MD 12/08/23 14:58:
Patient seen and examined in collaboration with LINOTYPE OPERATOR; agree with below.
-68-year-old male with previous CVA, hypertension, and diabetes admitted with recurrent CVA concerning for cardioembolic source, given multi-distribution.
-Patient will undergo MARGAUX/ILR implantation tomorrow; consent obtained by via telephone today.
-Continue surveillance system monitor.
-NPO after midnight.
-Currently on Eliquis for pulmonary embolism--continue.
Original Note:
Consultation
Consultation Request
Date/Time Consultation Requested: 12/08/23 0948
Date/Time Consultation Performed: 12/08/23 1115
Requesting Provider: Dr. Philip
Performing Provider: Rajni MARTINEZ for Dr. Mai
Reason for Consultation: Evaluate for MARGAUX
Medical History
-
Chief Complaint: stroke symptoms
History of Present Illness:
68 y/o male with history of CVA with left-sided hemiparesis, hypertension, GERD, and DM who is here for evaluation after he was noted to have nausea, right-sided gaze, expressive aphasia, and dysarthria (12/04/23). He does not recall this, so
obtained from chart. He was seen by neuro and was given TNK. Brain imaging has revealed focal area of acute to subacute infarction involving the left temporal lobe, as well as small foci of acute to subacute infarction involving the left cerebellar
hemisphere, the left posterior occipital lobe, and the white matter of the left parieto-occipital junction. Multiple regions of old infarction. Moderate atrophy. Severe leukomalacia. Additionally, chest CT revealed PE. He is now on Eliquis. Echo
showed positive bubble study and we are consulted to evaluate for MARGAUX.
Past Medical History
Past Medical History: CVA, GERD, HTN and NIDDM
Social History
Tobacco: Non-Smoker
Personal:
Living: With Family
Family History
Family History: CAD (mom, older age)
Allergies / Home Medications
Allergy/AdvReac Type Severity Reaction Status Date / Time
No Known Allergies Allergy Unverified 12/04/23 20:30
�Medication �Instructions �Recorded �Confirmed �Type
amlodipine 5 mg tablet 5 mg PO DAILY Blood Pressure 12/05/23 12/05/23 History
aspirin 81 mg chewable tablet 81 mg PO DAILY Blood Clot 12/05/23 12/05/23 History
Prevention/Tx
escitalopram oxalate 20 mg tablet 20 mg PO DAILY Depression 12/05/23 12/05/23 History
(Lexapro)
esomeprazole magnesium 20 mg 20 mg PO DAILY Gastrointestinal 12/05/23 12/05/23 History
tablet,delayed release Issue
lisinopril 20 mg tablet 20 mg PO DAILY Blood Pressure 12/05/23 12/05/23 History
metformin 500 mg tablet 500 mg PO BID Diabetes 12/05/23 12/05/23 History
Review of Systems
-
History Source: Patient and Other (and chart)
Respiratory: Trouble Breathing (maybe a little per patient)
Abdomen/GI: Nausea
Neurological: Other (aphasia, dysarthria)
Physical Exam
Vital Signs
Temp Pulse Resp BP Pulse Ox
98.7 F 70 18 148/73 94
12/08/23 07:42 12/08/23 08:43 12/08/23 07:42 12/08/23 08:43 12/08/23 07:42
Lab Results
12/08/23 06:37
12/08/23 06:37
Physical Exam
General: Well Developed, Well Nourished and No Apparent Distress
HEENT: Normocephalic and Anicteric
Respiratory: Clear and Non Labored Respirations
Cardiac: Regular Rhythm
Musculoskeletal: No Edema
Skin: Warm and Dry
Neuro: Awake, Alert and Oriented (self and place)
Psych: Calm
Impression / Plan
-
Stroke:
-this diagnosis is threat to bodily function
-neuro is on the case
-he is s/p TNK
-echo with positive bubble study
-he is now on Eliquis with PE
-also on aspirin and statin
-We will arrange MARGAUX and ILR
PE:
-on Eliquis
HTN:
-continue CCB and ACEI and monitor
DM:
-on metformin
-per primary
Data Reviewed
-
EKG: Tracing Personally Visualized and interpreted (SR 82 BPM, NS ST abnormaluty)
CT Scan: Report Reviewed by me (Examination is positive for pulmonary embolism There is also evidence for right heart strain. The aortic root appears prominent with measured transverse dimension of 4.2 cm.)
MRI: Report Reviewed by me ( focal area of acute to subacute infarction involving the left temporal lobe, as well as small foci of acute to subacute infarction involving the left cerebellar hemisphere, the left posterior occipital lobe, and the
white matter of the left parieto-occipital junction. As above.)
Medical Tests (Nuc Med, Echo etc): Report Reviewed by me
--- NOTE | 2023-12-08 11:44 | CM ---
Addendum entered by Josephine Montes De Oca 12/08/23 14:28:
computer programming manager spoke with [facility] admissions and they feel that patient would be unable to tolerate 3-4 hours of acute rehab, case fitter spoke with patient and spouse regarding alternative options and they have selected [facility]
facility, referral sent to [facility].
Original Note:
computer programming manager spoke with patient this am and discussed rehab options, patient is agreeable to [facility] acute rehab. Referral sent to [facility] acute rehab. Patient will need physiatry evaluation.
Plan; [facility] acute rehab, needs PT/OT and Physiatry.
[2023-12-08 11:48] LABS: Glucose - Point of Care 209 mg/dl (70-99)
--- NOTE | 2023-12-08 12:59 | W.PN.HOSP.TC ---
Today's Communication/Plan
-
monitor vitals
see plan
cardiology evaluation
cw eliquis
pt/ot
miralax
Assessment / Plan
Assessment / Plan
CT head
There is a focal area of CSF density in the right parietal lobe posterolaterally, and also extending to involve the posterior right occipital lobe, and these findings are compatible with encephalomalacia from old infarction.
There is also a small focus of CSF density in the anteromedial left thalamus, compatible with old infarction.
Focal area of decreased density involving loss in the posterior left occipital lobe, compatible with old infarction.
There is also a focal area of volume loss and decreased density involving the anteromedial right frontal lobe, as seen on image 19 of series 204, compatible with old infarction. Small foci of decreased density within the cerebellar hemispheres,
which likely represent small old infarct.
Moderate to severe leukomalacia is present.
Mild to moderate diffuse atrophy.
There is no evidence of acute intracranial hemorrhage. There is no midline shift.
There is significant calcification of the internal carotid arteries and middle cerebral arteries bilaterally. There is no CT evidence for a focal area of acute to subacute infarction.
The visualized paranasal sinuses appear clear. The mastoid air cells appear clear
CT chest PE
There is embolus in the distal aspect of the left main pulmonary artery, and extending into the interlobar and left lower lobe pulmonary arteries. Involvement of segmental branch within the left upper lobe and also probably involvement of the
lingular branches. Additionally, there appears to be a small embolus within a segmental branch within the right lower lobe. No evidence for embolus within the right main pulmonary artery. Possible embolus within the right anterior subsegmental
branch within the right upper lobe. The right ventricle is enlarged with deviation of the interventricular septum toward the left, findings suggesting right heart strain.
The thoracic aorta is fairly well opacified. There is mild to moderate atherosclerotic disease of the thoracic aorta. The aortic root appears prominent with transverse dimension of 4.2 cm. The ascending aorta is within normal limits of caliber. No
significant dilation of the aortic arch or the descending thoracic aorta.
There is no significant pleural effusion and no significant pericardial effusion.
Band of linear atelectasis within the posterior right lower lung. Mild dependent atelectasis in the posterior left lower lung.
No significant abnormality in the visualized upper abdomen.
Minimal dextroconvex scoliosis of the thoracic spine. Mild changes of degenerative disc disease with no evidence for compression fracture. Increased kyphosis centered at the cervicothoracic junction.
CTA H&N
Bilateral carotid bulb and proximal ICA calcification, with no evidence for hemodynamically significant stenosis.
Hypoplastic right A1 segment of the anterior cerebral artery.
Luminal irregularity and calcification involving the M1 portions of the middle cerebral arteries bilaterally, with no evidence for large vessel occlusion/high-grade stenosis.
Luminal irregularity of the posterior cerebral arteries bilaterally, compatible with multifocal mild to moderate stenoses. No evidence for significant narrowing of the vertebral or basilar arteries

slurred speech likely 2/2 acute/subacute CVA
Concern for new CVA
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
Residual left-sided weakness/vision loss
-Patient came in with question of new onset of dysarthria/speech changes
-CT head showing diffuse old infarct, no new bleed
-CTA head and neck done which did not show any large thrombus. Diffuse vascular changes as mentioned above on the report.
s/p TNK on admission
neurology follloiwng
MRI with acute/subacute infarction involving the left cerebellar hemisphere, left posterior occipital lobe and white matter of the left parietal occipital junction.
-Repeat CT head done in the night did not show any any brain bleed
now out of ICU
-Due to PE and simultaneous stroke concern of septal defect/ASD, echocardiogram 12/05 with no significant valvular disease. Dilated aortic root 4.1 cm.
-Neurology following and help appreciated
speech following; pureed diet; VSE 12/06 noted. monitor
now transitioned to eliquis with loading dose; was ok'ed by neurology
cardiology consulted by neurology for possible MARGAUX and linq
Bilateral PE - submassive
Right heart strain
per son at bedside; patient is notvery ambulatory after his previous CVA; suspect lifelong AC
-Patient had diffuse bilateral PE on CT chest PE, also concern of RV strain by imaging standard
-Vitally patient stable and not tachycardic/not hypotensive
-Patient got 1/3 dose of TNK that he would have gotten for primary PE thrombolysis
-Lower extremity venous Doppler has ruled out any DVT
now on eliquis
would need malignancy work up outpatient
hx of diabetes
on metformin
A1c 6.6
cw accuchecks
Acute TME
-Baseline unknown
-Patient has been started on Keppra by neurology, likely can be discontinued if neurology agreement
-Avoid sedative meds.
Leukocytosis w/o fever
-reactive in nature, monitor off abx
-Chest x-ray questioning lower basilar infiltrate although likely atelectatic changes
-Septic workup including cultures antibiotic precardiac having a new fever
Dysphagia
-Speech following
HTN
Continue lisinopril, amlodipine
Labetalol as needed
DVT PPX - heparin
Full code
General: No Apparent Distress and Comfortable
HEENT: Negative Oxygen
Respiratory: Clear to Auscultation
Cardiac: Regular Rhythm and S1/S2; Negative Murmur or Rub
GI: Soft, Nontender and Nondistended
Musculoskeletal: No Edema
Neuro: Other (Left arm weakness); Negative Awake
Psych: Calm
Anticipated Discharge: 24 - 48 hours
Subjective/Interval History
-
Date of Service: December 08, 2023
denies pain
Objective Data
-
Labs:
Laboratory Results
12/08/23
06:37
WBC 6.7
Hgb 12.7 L
Hct 35.7 L
Plt Count 186
Sodium 142
Potassium 3.6
Chloride 103
Carbon Dioxide 27
BUN 13
Creatinine 0.7
Glucose 132 H
Calcium 8.7
Vital Signs:
Vital Signs
Temp Pulse Resp BP Pulse Ox
98.7 F 70 18 148/73 94
12/08/23 07:42 12/08/23 08:43 12/08/23 07:42 12/08/23 08:43 12/08/23 07:42
I&O
12/07/23 12/08/23 12/09/23
06:59 06:59 06:59
Intake Total 1310 / 1321 264 / 264
Output Total 450 / 450 800 / 800
Balance 860 / 871 -536 / -536
[2023-12-08] MEDS: NOVOLOG FLEXPEN-LOW RESISTANCE 2 UNITS SC ×2 (13:06→17:54)
[2023-12-08 16:48] LABS: Glucose - Point of Care 225 mg/dl (70-99)
[2023-12-08] MEDS: LIPITOR 40 MG PO (17:40)
[2023-12-08 21:31] LABS: Glucose - Point of Care 171 mg/dl (70-99)
[2023-12-09] VITALS (7 sets, daily range): BP systolic 136–159; BP diastolic 70–86
[2023-12-09 06:09] LABS: Glucose - Point of Care 145 mg/dl (70-99)
[2023-12-09] MEDS: NOVOLOG FLEXPEN-LOW RESISTANCE SC ×3 (06:09→17:55)
[2023-12-09 07:13] LABS: % Basophils 0.5 % (0-2); % Eosinophils 4.2 % (0-6); % Immature Granulocytes 0.3 % (0-0.5); % Lymphocytes 22.1 % (20.5-51.1); % Monocytes 9.3 % (1.7-9.3); % Neutrophils 63.6 % (42.2-75.2); Absolute Eosinophils 0.3 10^3/uL (0-0.7); Absolute Lymphocytes 1.6 10^3/uL (1.2-3.4); Absolute Monocytes 0.7 10^3/uL (0.1-0.6); Absolute Neutrophils 4.7 10^3/uL (1.4-6.5); Hematocrit 37.8 % (39.0-52.0); Hemoglobin 13.6 g/dL (13.0-18.0); Mean Corpuscular Hgb 29.2 pg (27.0-31.0); Mean Corpuscular Volume 81.1 fL (80.0-94.0); Mean Platelet Volume 9.8 fL (7.4-10.4); Nucleated Red Blood Cells % 0 % (-); Platelet Count 215 10^3/uL (130-400); Red Blood Cell Count 4.66 10^6/uL (4.70-6.10); Red Cell Dist. Width 12.6 % (11.5-14.5); White Blood Cell Count 7.4 10^3/uL (4.8-10.8)
[2023-12-09 08:27] LABS: Blood Urea Nitrogen 12 mg/dl (9-20); Calcium 9.3 mg/dl (8.4-10.2); Carbon Dioxide 30 mmol/L (22-30); Chloride 102 mmol/L (98-107); Estimated Creatinine Clearance 100 ml/min; Glucose 136 mg/dl (70-99); Potassium 3.8 mmol/L (3.5-5.1); Sodium 141 mmol/L (135-145); eGFR > 60.00
[2023-12-09] MEDS: NORVASC 5 MG PO (09:31)
[2023-12-09] MEDS: ELIQUIS 10 MG PO ×2 (09:31→20:32)
[2023-12-09] MEDS: ZESTRIL 20 MG PO (09:33)
[2023-12-09] MEDS: LEXAPRO 20 MG PO (09:33)
[2023-12-09] MEDS: NSS (PRESERVATIVE FREE) IV (09:36)
[2023-12-09] MEDS: LOW STRENGTH ASPIRIN 81 MG PO (09:36)
[2023-12-09] MEDS: PROTONIX 40 MG PO (09:36)
[2023-12-09] MEDS: MIRALAX 17 GRAMS PO (09:39)
--- NOTE | 2023-12-09 12:40 | W.PN.HOSP.TC ---
Today's Communication/Plan
-
monitor vitals
see plan
cw eliquis
MARGAUX/ILR implantation today
pt/ot
Assessment / Plan
Assessment / Plan
CT head
There is a focal area of CSF density in the right parietal lobe posterolaterally, and also extending to involve the posterior right occipital lobe, and these findings are compatible with encephalomalacia from old infarction.
There is also a small focus of CSF density in the anteromedial left thalamus, compatible with old infarction.
Focal area of decreased density involving loss in the posterior left occipital lobe, compatible with old infarction.
There is also a focal area of volume loss and decreased density involving the anteromedial right frontal lobe, as seen on image 19 of series 204, compatible with old infarction. Small foci of decreased density within the cerebellar hemispheres,
which likely represent small old infarct.
Moderate to severe leukomalacia is present.
Mild to moderate diffuse atrophy.
There is no evidence of acute intracranial hemorrhage. There is no midline shift.
There is significant calcification of the internal carotid arteries and middle cerebral arteries bilaterally. There is no CT evidence for a focal area of acute to subacute infarction.
The visualized paranasal sinuses appear clear. The mastoid air cells appear clear
CT chest PE
There is embolus in the distal aspect of the left main pulmonary artery, and extending into the interlobar and left lower lobe pulmonary arteries. Involvement of segmental branch within the left upper lobe and also probably involvement of the
lingular branches. Additionally, there appears to be a small embolus within a segmental branch within the right lower lobe. No evidence for embolus within the right main pulmonary artery. Possible embolus within the right anterior subsegmental
branch within the right upper lobe. The right ventricle is enlarged with deviation of the interventricular septum toward the left, findings suggesting right heart strain.
The thoracic aorta is fairly well opacified. There is mild to moderate atherosclerotic disease of the thoracic aorta. The aortic root appears prominent with transverse dimension of 4.2 cm. The ascending aorta is within normal limits of caliber. No
significant dilation of the aortic arch or the descending thoracic aorta.
There is no significant pleural effusion and no significant pericardial effusion.
Band of linear atelectasis within the posterior right lower lung. Mild dependent atelectasis in the posterior left lower lung.
No significant abnormality in the visualized upper abdomen.
Minimal dextroconvex scoliosis of the thoracic spine. Mild changes of degenerative disc disease with no evidence for compression fracture. Increased kyphosis centered at the cervicothoracic junction.
CTA H&N
Bilateral carotid bulb and proximal ICA calcification, with no evidence for hemodynamically significant stenosis.
Hypoplastic right A1 segment of the anterior cerebral artery.
Luminal irregularity and calcification involving the M1 portions of the middle cerebral arteries bilaterally, with no evidence for large vessel occlusion/high-grade stenosis.
Luminal irregularity of the posterior cerebral arteries bilaterally, compatible with multifocal mild to moderate stenoses. No evidence for significant narrowing of the vertebral or basilar arteries

slurred speech likely 2/2 acute/subacute CVA
Concern for new CVA
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
Residual left-sided weakness/vision loss
-Patient came in with question of new onset of dysarthria/speech changes
-CT head showing diffuse old infarct, no new bleed
-CTA head and neck done which did not show any large thrombus. Diffuse vascular changes as mentioned above on the report.
s/p TNK on admission
neurology follloiwng
MRI with acute/subacute infarction involving the left cerebellar hemisphere, left posterior occipital lobe and white matter of the left parietal occipital junction.
-Repeat CT head done in the night did not show any any brain bleed
now out of ICU
-Due to PE and simultaneous stroke concern of septal defect/ASD, echocardiogram 12/05 with no significant valvular disease. Dilated aortic root 4.1 cm.
-Neurology following and help appreciated
speech following; pureed diet; VSE 12/06 noted. monitor
now transitioned to eliquis with loading dose; was ok'ed by neurology
cardiology following for possible MARGAUX and loop 12/08
Bilateral PE - submassive
Right heart strain
per son at bedside; patient is notvery ambulatory after his previous CVA; suspect lifelong AC
-Patient had diffuse bilateral PE on CT chest PE, also concern of RV strain by imaging standard
-Vitally patient stable and not tachycardic/not hypotensive
-Patient got 1/3 dose of TNK that he would have gotten for primary PE thrombolysis
-Lower extremity venous Doppler has ruled out any DVT
now on eliquis
would need malignancy work up outpatient
hx of diabetes
on metformin
A1c 6.6
cw accuchecks
Acute TME
-Baseline unknown
-Patient has been started on Keppra by neurology, likely can be discontinued if neurology agreement
-Avoid sedative meds.
Leukocytosis w/o fever
-reactive in nature, monitor off abx
-Chest x-ray questioning lower basilar infiltrate although likely atelectatic changes
-Septic workup including cultures antibiotic precardiac having a new fever
Dysphagia
-Speech following
HTN
Continue lisinopril, amlodipine
Labetalol as needed
DVT PPX - heparin
Full code
General: No Apparent Distress and Comfortable
HEENT: Negative Oxygen
Respiratory: Clear to Auscultation
Cardiac: Regular Rhythm and S1/S2; Negative Murmur or Rub
GI: Soft, Nontender and Nondistended
Musculoskeletal: No Edema
Neuro: Other (Left arm weakness); Negative Awake
Psych: Calm
I spent a total of 51 minutes with the patient or on the floor. More than 50% of this time involved counseling and coordination of care.
Anticipated Discharge: 24 - 48 hours
Subjective/Interval History
-
Date of Service: December 09, 2023
denies pain
Objective Data
-
Labs:
Laboratory Results
12/09/23
06:48
WBC 7.4
Hgb 13.6
Hct 37.8 L
Plt Count 215
Sodium 141
Potassium 3.8
Chloride 102
Carbon Dioxide 30
BUN 12
Creatinine 0.7
Glucose 136 H
Calcium 9.3
Vital Signs:
Vital Signs
Temp Pulse Resp BP Pulse Ox
97.9 F 66 20 147/82 95
12/09/23 07:40 12/09/23 09:31 12/09/23 07:40 12/09/23 09:31 12/09/23 07:40
I&O
12/08/23 12/09/23 12/10/23
06:59 06:59 06:59
Intake Total 264 / 264 960 / 960
Output Total 800 / 800 950 / 950
Balance -536 / -536
--- NOTE | 2023-12-09 12:40 | W.PN.NEURO.1 ---
Today's Communication / Plan
-
.
Neuro Assessment/Plan
Assessment
68 yr. 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
CTA showed left pulmonary artery embolism
Plan
Serial CT head.
IV Heparin @ 9P. No Bolus
Hold Keppra
PT/OT
Speech therapy
Subjective/Objective
Subjective Data
Date of Service: December 09, 2023
Neurology follow-up note
24-hour events: Intermittently hypertensive, afebrile. The patient reports no complaints.
MARGAUX/ILP-pending.
Brain MRI without gadolinium (12/06/2023)�acute/subacute left MCA/L SCA territory infarcts, chronic L WATER METER READER/MCA large infarct, chronic bilateral cerebellar, thalamic, lentiform nuclei infarcts. Moderate atrophy and severe leukoaraiosis.
CTA head/neck(12/04/2023) Luminal irregularity and calcification involving the M1 portions of the middle cerebral arteries bilaterally, with no evidence for large vessel occlusion/high-grade stenosis.
multifocal mild to moderate BL WATER METER READER stenoses.
TTE-PFO
LE Dopper US(12/05/2023) no evidence for deep venous thrombosis bilaterally.
LDL-82, HbA1C 6.6
PMH: chronic strokes, HTN, DLP, DM, cognitive deficits
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
FH: Unknown
All:NKDA
ROS: Positive for chronic cognitive deficits. Negative for headache, change in vision or strength, new sensory deficits
General: Well developed. In no acute distress.
Cardio: Regular rate and rhythm without murmur. Extremities are without cyanosis or edema.
Neuro:
Mental Status: Alert, oriented to name, age-'50', year-' I do not know' Increased processing time follows simple requests consistently poor attention and comprehension. Nonfluent. Simple requests.
Cranial Nerves: Pupils are equally round and reactive to light. EOMs full. Left homonymous hemianopia. No ptosis. No nystagmus. Face symmetric. Normal hearing AU. The palate elevated well. SCMs and traps 5/5. Tongue midline. No dysarthria.
Motor: Left hemiplegia
Reflexes: Grasp on the right
Sensory: Limited exam due to inattention.
Coordination: No tremors myoclonic movements
Gait: Nonambulatory
Assessment and Plan:
I. Acute/subacute MCA/L SCA stroke. Likely etiology�embolic. Intracranial atherosclerosis. PFO
II. Chronic multi territorial bihemispheric infarcts
III. Multifactorial encephalopathy (vascular (strokes), ?neurodegenerative)
IV. Pulmonary embolism
-Continue Telemetry monitoring.
-Lipitor 40 mg QHS
-Continue Eliquis for PE
-Thrombophilia work up
-MARGAUX/ILR
-DVT prophylaxis.
-OP neurology follow up in 2-3 weeks
I personally reviewed all radiology and labs along with past medical records pertinent to current medical problems. Total time spent in patient care is 35 minutes.
Thank you for allowing us to participate in the care of this patient. Please do not hesitate to contact us with any questions or concerns.
Objective Data
Vital Signs
Temp Pulse Resp BP Pulse Ox
36.6 C 66 20 147/82 95
12/09/23 07:40 12/09/23 09:31 12/09/23 07:40 12/09/23 09:31 12/09/23 07:40
Lab Results
12/09/23 06:48
12/09/23 06:48
PT 15.3 Sec (11.4-14.6) H 12/06/23 03:06
INR 1.23 12/06/23 03:06
APTT 81.5 Sec (23.4-35.0) H 12/07/23 17:10
Sodium 141 mmol/L (135-145) 12/09/23 06:48
Potassium 3.8 mmol/L (3.5-5.1) 12/09/23 06:48
BUN 12 mg/dl (9-20) 12/09/23 06:48
Glucose 136 mg/dl (70-99) H 12/09/23 06:48
Calcium 9.3 mg/dl (8.4-10.2) 12/09/23 06:48
Phosphorus 3.4 mg/dl (2.5-4.5) 12/07/23 03:36
LDL Cholesterol, Calc 82 mg/dl 12/05/23 03:51
Vitamin B12 Cancelled 12/07/23 15:58
Vitamin B12 Cancelled 12/07/23 15:58
Patient Allergies
No Known Allergies Allergy (Unverified 12/04/23 20:30)
Vital Signs and Labs
-
Vital Signs and Labs:
Vital Signs
Temp Pulse Resp BP Pulse Ox
36.6 C 66 20 147/82 95
12/09/23 07:40 12/09/23 09:31 12/09/23 07:40 12/09/23 09:31 12/09/23 07:40
Lab Results
12/09/23 06:48
12/09/23 06:48
PT 15.3 Sec (11.4-14.6) H 12/06/23 03:06
INR 1.23 12/06/23 03:06
APTT 81.5 Sec (23.4-35.0) H 12/07/23 17:10
Sodium 141 mmol/L (135-145) 12/09/23 06:48
Potassium 3.8 mmol/L (3.5-5.1) 12/09/23 06:48
BUN 12 mg/dl (9-20) 12/09/23 06:48
Glucose 136 mg/dl (70-99) H 12/09/23 06:48
Calcium 9.3 mg/dl (8.4-10.2) 12/09/23 06:48
Phosphorus 3.4 mg/dl (2.5-4.5) 12/07/23 03:36
LDL Cholesterol, Calc 82 mg/dl 12/05/23 03:51
Vitamin B12 Cancelled 12/07/23 15:58
Vitamin B12 Cancelled 12/07/23 15:58
Medications
-
Medications:
Generic Name Dose Route Start Last Admin
Trade Name Freq PRN Reason Stop Dose Admin
Acetaminophen 650 mg 12/04/23 21:47
Acetaminophen 325 Mg Tablet PO 01/01/24 21:46
Q4HPRN PRN
CAMPBELL, mild pain, or temp >100.4F
Amlodipine Besylate 5 mg 12/07/23 08:00 12/09/23 09:31
Amlodipine 5 Mg Tablet PO 01/04/24 07:59 5 mg
DAILY IKER Administration
Apixaban 10 mg 12/07/23 20:00 12/09/23 09:31
Apixaban (Eliquis) 5 Mg Tablet PO 12/14/23 08:01 10 mg
BID IKER Administration
Aspirin 81 mg 12/06/23 16:00 12/09/23 09:36
Aspirin 81 Mg Chewable Tablet PO 01/03/24 15:59 81 mg
DAILY IKER Administration
Atorvastatin Calcium 40 mg 12/05/23 18:00 12/08/23 17:40
Atorvastatin (Lipitor) 40 Mg Tablet PO 01/02/24 17:59 40 mg
QPM IKER Administration
Dextrose 12.5 grams 12/04/23 21:47
Dextrose 50% (0.5 Grams/Ml) 50 Ml Syringe IV 01/01/24 21:46
[id number] PRN
hypoglycemia
Protocol
Escitalopram Oxalate 20 mg 12/06/23 16:00 12/09/23 09:33
Escitalopram 20 Mg Tablet PO 01/03/24 15:59 20 mg
DAILY IKER Administration
Glucagon 1 mg 12/04/23 21:47
Glucagon 1 Mg Vial IM 01/01/24 21:46
PRN PRN
hypoglycemia
Protocol
Insulin Aspart 0 units 12/09/23 06:00 12/09/23 06:09
Insulin Aspart Low Resistance 300 Units/3 Ml Pen.Injctr SC 01/06/24 05:59 Not Given
Q6 IKER
Protocol
Labetalol HCl 10 mg 12/05/23 22:02 12/08/23 04:13
Labetalol Hcl 5 Mg/1 Ml (20 Mg/4 Ml) Injection IV 01/02/24 22:01 10 mg
Q6HPRN PRN Administration
SBP>160
Levetiracetam 500 mg 12/04/23 22:00 12/05/23 07:41
Levetiracetam (100 Mg/Ml) 500 Mg/5 Ml Vial IV 01/01/24 21:59 500 mg
Q12 IKER Administration
Lisinopril 20 mg 12/07/23 08:00 12/09/23 09:33
Lisinopril 20 Mg Tablet PO 01/04/24 07:59 20 mg
DAILY IKER Administration
Pantoprazole Sodium 40 mg 12/07/23 08:00 12/09/23 09:36
Pantoprazole 40 Mg Delayed Release Tablet PO 01/04/24 07:59 40 mg
DAILY IKER Administration
Polyethylene Glycol 17 grams 12/07/23 12:00 12/09/23 09:39
Polyethylene Glycol Powder 17 Grams Packet PO 01/04/24 11:59 17 grams
DAILY IKER Administration
Sodium Chloride 0 flush 12/04/23 22:00
Sodium Chloride 0.9% (Flush) Syringe IV 01/01/24 21:59
PER PROTOCOL IKER
Sodium Chloride 10 ml 12/05/23 08:00 12/09/23 09:36
Sodium Chloride 0.9% (Preservative Free) 10 Ml Vial IV 01/02/24 07:59 Not Given
DAILY IKER
Home Medications
-
Home Medications
amlodipine 5 mg tablet 5 mg PO DAILY Blood Pressure 12/05/23
aspirin 81 mg chewable tablet 81 mg PO DAILY Blood Clot Prevention/Tx 12/05/23
escitalopram oxalate 20 mg tablet (Lexapro) 20 mg PO DAILY Depression 12/05/23
esomeprazole magnesium 20 mg tablet,delayed release 20 mg PO DAILY Gastrointestinal Issue 12/05/23
lisinopril 20 mg tablet 20 mg PO DAILY Blood Pressure 12/05/23
metformin 500 mg tablet 500 mg PO BID Diabetes 12/05/23
--- NOTE | 2023-12-09 13:10 | W.PN.CD ---
Today's Communication / Plan
-
- MARGAUX and ILR today
Impression / Plan
-
Stroke:
-this diagnosis is threat to bodily function
-neuro is on the case
-he is s/p TNK
-echo with positive bubble study
-he is now on Eliquis with PE
-also on aspirin and statin
-Pending MARGAUX and ILR
PE:
-on Eliquis
HTN:
-continue CCB and ACEI and monitor
DM:
-on metformin
-per primary
Physical Exam
Vital Signs/Labs
Vital Signs
Temp Pulse Resp BP Pulse Ox
97.9 F 66 20 147/82 95
12/09/23 07:40 12/09/23 09:31 12/09/23 07:40 12/09/23 09:31 12/09/23 07:40
12/08/23 12/09/23 12/10/23
06:59 06:59 06:59
Actual Weight 75.098 kg
12/09/23 06:48
12/09/23 06:48
PT 15.3 Sec (11.4-14.6) H 12/06/23 03:06
INR 1.23 12/06/23 03:06
APTT 81.5 Sec (23.4-35.0) H 12/07/23 17:10
Magnesium 1.7 mg/dl (1.6-2.3) 12/07/23 03:36
Triglycerides 105 mg/dl (10-149) 12/05/23 03:51
LDL Cholesterol, Calc 82 mg/dl 12/05/23 03:51
VLDL Cholesterol, Calc 21 mg/dl (0-30) 12/05/23 03:51
HDL Cholesterol 48 mg/dl 12/05/23 03:51
Physical Exam
Constitutional: No acute distress and Comfortable
EENT: Anicteric and Moist mucous membranes
Cardiovascular: Rhythm & rate is regular and Pedal edema is absent
Respiratory: Respiratory effort normal, Lungs clear to auscul. and Wheeze Absent
GI: Soft, Non tender and Normal bowel sounds
Neuro/Psych: Alert
Other: Skin
Data Reviewed
-
Date of Service: December 09, 2023
Medical Decision Making: Reviewed Test Results, Independent Historian Assessment and Test Interpretation
EKG: Tracing Personally Visualized and interpreted
Echo: Report Reviewed by me
Labs: Labs Reviewed by me
Old Records: Reviewed
[2023-12-09 13:14] LABS: Glucose - Point of Care 126 mg/dl (70-99)
--- NOTE | 2023-12-09 14:04 | ITS.CL.IMPLP ---
[place] Team Leader - Implant Loop
Implant Loop
Procedure Report:
Procedure: Insertion of Loop Recorder.�
Date of the procedure: 12/09/2023
Procedure Physician: Ruth Gaines MD [facility]
Indication: Cryptogenic stroke
Description of the procedure:
Patient was brought to the holding area after informed consent was obtained from the family due to mental status. The time-out was performed immediately before the procedure.
The left parasternal chest area was prepped and draped in sterile fashion with chlorhexidine prep x 3 times. Lidocaine 1% was injected subcutaneously for local anesthesia. The loop recorder was tunneled and then injected into the subcutaneous
tissue. The tunneling tool was removed leaving the loop recorder in place. The dermis was closed with steristrips and a pressure Tegaderm dressing was placed. There were no immediate complications.
Post procedure, the device was interrogated and showed good detectable P and R waves.
There were no immediate complications.
Device:
LINQII; Model: [id number]; Serial #:[id number]
R wave amplitude: 0.52 mV
Final Programming:
��������������� Tachycardia Detection: >182 bpm for 16 beats
��������������� Bradycardia Detection: 30 bpm for 12 beats, Asystole for 5 seconds.
��������������� Atrial fibrillation detection: On with > 10 min duration
Conclusion:
Successful insertion of loop recorder.
Recommendation:
Routine post-insert loop care.
[2023-12-09 16:46] LABS: Glucose - Point of Care 109 mg/dl (70-99)
[2023-12-09] MEDS: LIPITOR 40 MG PO (17:53)
[2023-12-09 21:56] LABS: Glucose - Point of Care 187 mg/dl (70-99)
[2023-12-10] VITALS (8 sets, daily range): BP systolic 102–153; BP diastolic 58–83; PULSE 74; O2SAT 93
[2023-12-10] MEDS: NOVOLOG FLEXPEN-LOW RESISTANCE 1 UNITS SC ×3 (00:36→18:34)
[2023-12-10 07:57] LABS: % Basophils 0.8 % (0-2); % Eosinophils 4.1 % (0-6); % Immature Granulocytes 0.4 % (0-0.5); % Lymphocytes 20.7 % (20.5-51.1); Absolute Basophils 0.1 10^3/uL (0-0.2); Absolute Eosinophils 0.3 10^3/uL (0-0.7); Absolute Lymphocytes 1.6 10^3/uL (1.2-3.4); Absolute Monocytes 0.8 10^3/uL (0.1-0.6); Absolute Neutrophils 4.8 10^3/uL (1.4-6.5); Hematocrit 39.6 % (39.0-52.0); Mean Corp Hgb Conc. 35.4 g/dL (33.0-37.0); Mean Corpuscular Hgb 29.3 pg (27.0-31.0); Mean Corpuscular Volume 82.8 fL (80.0-94.0); Nucleated Red Blood Cells % 0 % (-); Platelet Count 247 10^3/uL (130-400); Red Blood Cell Count 4.78 10^6/uL (4.70-6.10); Red Cell Dist. Width 12.6 % (11.5-14.5); White Blood Cell Count 7.6 10^3/uL (4.8-10.8)
[2023-12-10 08:35] LABS: Blood Urea Nitrogen 16 mg/dl (9-20); Calcium 9.2 mg/dl (8.4-10.2); Carbon Dioxide 32 mmol/L (22-30); Chloride 101 mmol/L (98-107); Estimated Creatinine Clearance 88 ml/min; Glucose 128 mg/dl (70-99); Potassium 3.9 mmol/L (3.5-5.1); Sodium 141 mmol/L (135-145); eGFR > 60.00
[2023-12-10] MEDS: NORVASC 5 MG PO (08:36)
[2023-12-10] MEDS: ZESTRIL 20 MG PO (08:36)
[2023-12-10] MEDS: NSS (PRESERVATIVE FREE) IV (08:37)
[2023-12-10] MEDS: LEXAPRO 20 MG PO (08:37)
[2023-12-10] MEDS: PROTONIX 40 MG PO (08:37)
[2023-12-10] MEDS: LOW STRENGTH ASPIRIN 81 MG PO (08:37)
[2023-12-10] MEDS: ELIQUIS 10 MG PO ×2 (08:37→20:17)
[2023-12-10] MEDS: NOVOLOG FLEXPEN-LOW RESISTANCE SC (08:41)
[2023-12-10 08:42] LABS: Glucose - Point of Care 133 mg/dl (70-99)
[2023-12-10] MEDS: MIRALAX PO (09:34)
[2023-12-10 12:24] LABS: Glucose - Point of Care 183 mg/dl (70-99)
--- NOTE | 2023-12-10 12:42 | W.PN.HOSP.TC ---
Today's Communication/Plan
-
Monitor vital signs
see plan
Continue with anticoagulation
will need hypercoagulable workup with hematology outpatient
now with loop
dc planning; needs SNF
Spouse updated over the phone
Assessment / Plan
Assessment / Plan
CT head
There is a focal area of CSF density in the right parietal lobe posterolaterally, and also extending to involve the posterior right occipital lobe, and these findings are compatible with encephalomalacia from old infarction.
There is also a small focus of CSF density in the anteromedial left thalamus, compatible with old infarction.
Focal area of decreased density involving loss in the posterior left occipital lobe, compatible with old infarction.
There is also a focal area of volume loss and decreased density involving the anteromedial right frontal lobe, as seen on image 19 of series 204, compatible with old infarction. Small foci of decreased density within the cerebellar hemispheres,
which likely represent small old infarct.
Moderate to severe leukomalacia is present.
Mild to moderate diffuse atrophy.
There is no evidence of acute intracranial hemorrhage. There is no midline shift.
There is significant calcification of the internal carotid arteries and middle cerebral arteries bilaterally. There is no CT evidence for a focal area of acute to subacute infarction.
The visualized paranasal sinuses appear clear. The mastoid air cells appear clear
CT chest PE
There is embolus in the distal aspect of the left main pulmonary artery, and extending into the interlobar and left lower lobe pulmonary arteries. Involvement of segmental branch within the left upper lobe and also probably involvement of the
lingular branches. Additionally, there appears to be a small embolus within a segmental branch within the right lower lobe. No evidence for embolus within the right main pulmonary artery. Possible embolus within the right anterior subsegmental
branch within the right upper lobe. The right ventricle is enlarged with deviation of the interventricular septum toward the left, findings suggesting right heart strain.
The thoracic aorta is fairly well opacified. There is mild to moderate atherosclerotic disease of the thoracic aorta. The aortic root appears prominent with transverse dimension of 4.2 cm. The ascending aorta is within normal limits of caliber. No
significant dilation of the aortic arch or the descending thoracic aorta.
There is no significant pleural effusion and no significant pericardial effusion.
Band of linear atelectasis within the posterior right lower lung. Mild dependent atelectasis in the posterior left lower lung.
No significant abnormality in the visualized upper abdomen.
Minimal dextroconvex scoliosis of the thoracic spine. Mild changes of degenerative disc disease with no evidence for compression fracture. Increased kyphosis centered at the cervicothoracic junction.
CTA H&N
Bilateral carotid bulb and proximal ICA calcification, with no evidence for hemodynamically significant stenosis.
Hypoplastic right A1 segment of the anterior cerebral artery.
Luminal irregularity and calcification involving the M1 portions of the middle cerebral arteries bilaterally, with no evidence for large vessel occlusion/high-grade stenosis.
Luminal irregularity of the posterior cerebral arteries bilaterally, compatible with multifocal mild to moderate stenoses. No evidence for significant narrowing of the vertebral or basilar arteries

slurred speech likely 2/2 acute/subacute CVA
Concern for new CVA
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
Residual left-sided weakness/vision loss
-Patient came in with question of new onset of dysarthria/speech changes
-CT head showing diffuse old infarct, no new bleed
-CTA head and neck done which did not show any large thrombus. Diffuse vascular changes as mentioned above on the report.
s/p TNK on admission
neurology follloiwng
MRI with acute/subacute infarction involving the left cerebellar hemisphere, left posterior occipital lobe and white matter of the left parietal occipital junction.
-Repeat CT head did not show any any brain bleed
now out of ICU
-Due to PE and simultaneous stroke concern of septal defect/ASD, echocardiogram 12/05 with no significant valvular disease. Dilated aortic root 4.1 cm.
-Neurology following and help appreciated
speech following; pureed diet; VSE 12/06 noted. monitor
now transitioned to eliquis with loading dose; was ok'ed by neurology
cardiology following for possible MARGAUX and loop 12/08. MARGAUX with small Pfo; defer to cardiology regarding need for surgery, per my conversation with Dr Mai,would not need surgery, just AC for now. will monitor arrhythmia with loop
would need to follow up with hematology for malignancy work up
Bilateral PE - submassive
Right heart strain
per son at bedside; patient is not very ambulatory after his previous CVA; suspect lifelong AC
-Patient had diffuse bilateral PE on CT chest PE, also concern of RV strain by imaging standard
-Vitally patient stable and not tachycardic/not hypotensive
-Patient got 1/3 dose of TNK that he would have gotten for primary PE thrombolysis
-Lower extremity venous Doppler has ruled out any DVT
now on eliquis
would need malignancy work up outpatient
hx of diabetes
on metformin
A1c 6.6
cw accuchecks
Acute TME
-Baseline unknown
-Patient has been started on Keppra by neurology, likely can be discontinued if neurology agreement
-Avoid sedative meds.
Leukocytosis w/o fever
-reactive in nature, monitor off abx
-Chest x-ray questioning lower basilar infiltrate although likely atelectatic changes
-Septic workup including cultures antibiotic precardiac having a new fever
Dysphagia
-Speech following
HTN
Continue lisinopril, amlodipine
Labetalol as needed
DVT PPX - heparin
Full code
General: No Apparent Distress and Comfortable
HEENT: Negative Oxygen
Respiratory: Clear to Auscultation
Cardiac: Regular Rhythm and S1/S2; Negative Murmur or Rub
GI: Soft, Nontender and Nondistended
Musculoskeletal: No Edema
Neuro: Other (Left arm weakness); Negative Awake
Psych: Calm
I spent a total of 51 minutes with the patient or on the floor. More than 50% of this time involved counseling and coordination of care.
Anticipated Discharge: Within 24 hours
Subjective/Interval History
-
Date of Service: December 10, 2023
denies pain
Objective Data
-
Labs:
Laboratory Results
12/10/23
06:59
WBC 7.6
Hgb 14.0
Hct 39.6
Plt Count 247
Sodium 141
Potassium 3.9
Chloride 101
Carbon Dioxide 32 H
BUN 16
Creatinine 0.8
Glucose 128 H
Calcium 9.2
Vital Signs:
Vital Signs
Temp Pulse Resp BP Pulse Ox
98.1 F 78 20 135/73 92
12/10/23 11:58 12/10/23 11:58 12/10/23 11:58 12/10/23 11:58 12/10/23 11:58
I&O
12/09/23 12/10/23 12/11/23
06:59 06:59 06:59
Intake Total 960 / 960 240 / 240
Output Total 950 / 950 670 / 670
Balance -430 / -430
--- NOTE | 2023-12-10 16:25 | PTOTSP ---
Dysphagia Therapy
Improved oral stage noted with patient able to slowly chew solid without dentures and clear oral cavity with wait time. Given lack of dentures, consider dysphagia diet below. See patient care note for details.
Recommend:
1. IDDSI Level 5 (Minced/Moist) and Thin Liquids
2. Supervision and assist to feed as needed
3. Aspiration precautions: slow rate, sit upright, single sips, check for oral clearance
4. Meds crushed in puree
5. Dysphagia tx and speech/language/cognitive tx at the acute care level and after D/C
[2023-12-10 17:06] LABS: Glucose - Point of Care 173 mg/dl (70-99)
[2023-12-10] MEDS: LIPITOR 40 MG PO (18:35)
[2023-12-10 21:03] LABS: Glucose - Point of Care 235 mg/dl (70-99)
[2023-12-11 03:03] VITALS: BP 136/58
[2023-12-11 07:45] VITALS: BP 141/73
[2023-12-11 07:52] LABS: % Eosinophils 4.9 % (0-6); % Immature Granulocytes 0.4 % (0-0.5); % Lymphocytes 27.3 % (20.5-51.1); % Monocytes 9.8 % (1.7-9.3); % Neutrophils 56.6 % (42.2-75.2); Absolute Basophils 0.1 10^3/uL (0-0.2); Absolute Eosinophils 0.4 10^3/uL (0-0.7); Absolute Lymphocytes 2.1 10^3/uL (1.2-3.4); Absolute Monocytes 0.8 10^3/uL (0.1-0.6); Absolute Neutrophils 4.4 10^3/uL (1.4-6.5); Hematocrit 40.5 % (39.0-52.0); Hemoglobin 14.2 g/dL (13.0-18.0); Mean Corp Hgb Conc. 35.1 g/dL (33.0-37.0); Mean Corpuscular Hgb 29.3 pg (27.0-31.0); Mean Corpuscular Volume 83.5 fL (80.0-94.0); Mean Platelet Volume 9.7 fL (7.4-10.4); Nucleated Red Blood Cells % 0 % (-); Platelet Count 257 10^3/uL (130-400); Red Blood Cell Count 4.85 10^6/uL (4.70-6.10); Red Cell Dist. Width 12.9 % (11.5-14.5); White Blood Cell Count 7.8 10^3/uL (4.8-10.8)
[2023-12-11 08:14] LABS: Blood Urea Nitrogen 20 mg/dl (9-20); Calcium 9.4 mg/dl (8.4-10.2); Carbon Dioxide 33 mmol/L (22-30); Chloride 101 mmol/L (98-107); Estimated Creatinine Clearance 88 ml/min; Glucose 146 mg/dl (70-99); Potassium 4.2 mmol/L (3.5-5.1); Sodium 141 mmol/L (135-145); eGFR > 60.00
[2023-12-11] MEDS: NSS (PRESERVATIVE FREE) IV (08:24)
[2023-12-11 08:28] LABS: Glucose - Point of Care 141 mg/dl (70-99)
[2023-12-11] MEDS: NOVOLOG FLEXPEN-LOW RESISTANCE SC ×3 (08:29→17:11)
[2023-12-11] MEDS: MIRALAX 17 GRAMS PO (08:30)
[2023-12-11] MEDS: PROTONIX 40 MG PO (08:31)
[2023-12-11] MEDS: LEXAPRO 20 MG PO (08:31)
[2023-12-11] MEDS: ELIQUIS 10 MG PO ×2 (08:31→20:42)
[2023-12-11] MEDS: LOW STRENGTH ASPIRIN 81 MG PO (08:31)
[2023-12-11] MEDS: NORVASC 5 MG PO (08:31)
[2023-12-11] MEDS: ZESTRIL 20 MG PO (08:31)
[2023-12-11 11:00] VITALS: BP 114/57
--- NOTE | 2023-12-11 12:20 | W.PN.HOSP.TC ---
Today's Communication/Plan
-
monitor vitals
see plan
dc planning
cw eliquis
pt/ot
Assessment / Plan
Assessment / Plan
CT head
There is a focal area of CSF density in the right parietal lobe posterolaterally, and also extending to involve the posterior right occipital lobe, and these findings are compatible with encephalomalacia from old infarction.
There is also a small focus of CSF density in the anteromedial left thalamus, compatible with old infarction.
Focal area of decreased density involving loss in the posterior left occipital lobe, compatible with old infarction.
There is also a focal area of volume loss and decreased density involving the anteromedial right frontal lobe, as seen on image 19 of series 204, compatible with old infarction. Small foci of decreased density within the cerebellar hemispheres,
which likely represent small old infarct.
Moderate to severe leukomalacia is present.
Mild to moderate diffuse atrophy.
There is no evidence of acute intracranial hemorrhage. There is no midline shift.
There is significant calcification of the internal carotid arteries and middle cerebral arteries bilaterally. There is no CT evidence for a focal area of acute to subacute infarction.
The visualized paranasal sinuses appear clear. The mastoid air cells appear clear
CT chest PE
There is embolus in the distal aspect of the left main pulmonary artery, and extending into the interlobar and left lower lobe pulmonary arteries. Involvement of segmental branch within the left upper lobe and also probably involvement of the
lingular branches. Additionally, there appears to be a small embolus within a segmental branch within the right lower lobe. No evidence for embolus within the right main pulmonary artery. Possible embolus within the right anterior subsegmental
branch within the right upper lobe. The right ventricle is enlarged with deviation of the interventricular septum toward the left, findings suggesting right heart strain.
The thoracic aorta is fairly well opacified. There is mild to moderate atherosclerotic disease of the thoracic aorta. The aortic root appears prominent with transverse dimension of 4.2 cm. The ascending aorta is within normal limits of caliber. No
significant dilation of the aortic arch or the descending thoracic aorta.
There is no significant pleural effusion and no significant pericardial effusion.
Band of linear atelectasis within the posterior right lower lung. Mild dependent atelectasis in the posterior left lower lung.
No significant abnormality in the visualized upper abdomen.
Minimal dextroconvex scoliosis of the thoracic spine. Mild changes of degenerative disc disease with no evidence for compression fracture. Increased kyphosis centered at the cervicothoracic junction.
CTA H&N
Bilateral carotid bulb and proximal ICA calcification, with no evidence for hemodynamically significant stenosis.
Hypoplastic right A1 segment of the anterior cerebral artery.
Luminal irregularity and calcification involving the M1 portions of the middle cerebral arteries bilaterally, with no evidence for large vessel occlusion/high-grade stenosis.
Luminal irregularity of the posterior cerebral arteries bilaterally, compatible with multifocal mild to moderate stenoses. No evidence for significant narrowing of the vertebral or basilar arteries

slurred speech likely 2/2 acute/subacute CVA
Concern for new CVA
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
Residual left-sided weakness/vision loss
-Patient came in with question of new onset of dysarthria/speech changes
-CT head showing diffuse old infarct, no new bleed
-CTA head and neck done which did not show any large thrombus. Diffuse vascular changes as mentioned above on the report.
s/p TNK on admission
neurology follloiwng
MRI with acute/subacute infarction involving the left cerebellar hemisphere, left posterior occipital lobe and white matter of the left parietal occipital junction.
-Repeat CT head did not show any any brain bleed
now out of ICU
-Due to PE and simultaneous stroke concern of septal defect/ASD, echocardiogram 12/05 with no significant valvular disease. Dilated aortic root 4.1 cm.
-Neurology following and help appreciated
speech following; pureed diet; VSE 12/06 noted. monitor
now transitioned to eliquis with loading dose; was ok'ed by neurology
cardiology following for possible MARGAUX and loop 12/08. MARGAUX with small Pfo; defer to cardiology regarding need for surgery, per my conversation with Dr Mai,would not need surgery, just AC for now. will monitor arrhythmia with loop
would need to follow up with hematology for malignancy work up
Bilateral PE - submassive
Right heart strain
per son at bedside; patient is not very ambulatory after his previous CVA; suspect lifelong AC
-Patient had diffuse bilateral PE on CT chest PE, also concern of RV strain by imaging standard
-Vitally patient stable and not tachycardic/not hypotensive
-Patient got 1/3 dose of TNK that he would have gotten for primary PE thrombolysis
-Lower extremity venous Doppler has ruled out any DVT
now on eliquis
would need malignancy work up outpatient
hx of diabetes
on metformin
A1c 6.6
cw accuchecks
Acute TME
-Baseline unknown
-Patient has been started on Keppra by neurology, likely can be discontinued if neurology agreement
-Avoid sedative meds.
Leukocytosis w/o fever
-reactive in nature, monitor off abx
-Chest x-ray questioning lower basilar infiltrate although likely atelectatic changes
-Septic workup including cultures antibiotic precardiac having a new fever
Dysphagia
-Speech following
HTN
Continue lisinopril, amlodipine
Labetalol as needed
DVT PPX - heparin
Full code
General: No Apparent Distress and Comfortable
HEENT: Negative Oxygen
Respiratory: Clear to Auscultation
Cardiac: Regular Rhythm and S1/S2; Negative Murmur or Rub
GI: Soft, Nontender and Nondistended
Musculoskeletal: No Edema
Neuro: Other (Left arm weakness); Negative Awake
Psych: Calm
Anticipated Discharge: Within 24 hours
Subjective/Interval History
-
Date of Service: December 11, 2023
denies pain
Objective Data
-
Labs:
Laboratory Results
12/11/23
06:54
WBC 7.8
Hgb 14.2
Hct 40.5
Plt Count 257
Sodium 141
Potassium 4.2
Chloride 101
Carbon Dioxide 33 H
BUN 20
Creatinine 0.8
Glucose 146 H
Calcium 9.4
Vital Signs:
Vital Signs
Temp Pulse Resp BP Pulse Ox
98.6 F 68 18 114/57 93
12/11/23 11:00 12/11/23 11:00 12/11/23 11:00 12/11/23 11:00 12/11/23 11:00
I&O
12/10/23 12/11/23 12/12/23
06:59 06:59 06:59
Intake Total 240 / 240 240 / 240
Output Total 670 / 670 550 / 550
Balance -430 / -430 -310 / -310
[2023-12-11 13:00] LABS: Glucose - Point of Care 130 mg/dl (70-99)
[2023-12-11 15:40] VITALS: BP 127/72
[2023-12-11 17:10] LABS: Glucose - Point of Care 147 mg/dl (70-99)
[2023-12-11] MEDS: LIPITOR 40 MG PO (17:19)
[2023-12-11 20:04] VITALS: BP 145/90
[2023-12-11 21:33] LABS: Glucose - Point of Care 155 mg/dl (70-99)
[2023-12-11 23:28] VITALS: BP 147/78
[2023-12-12] VITALS (8 sets, daily range): BP systolic 113–158; BP diastolic 67–87; PULSE 69
[2023-12-12 07:23] LABS: % Eosinophils 3.6 % (0-6); % Immature Granulocytes 0.2 % (0-0.5); % Lymphocytes 24.8 % (20.5-51.1); % Monocytes 10.1 % (1.7-9.3); % Neutrophils 60.3 % (42.2-75.2); Absolute Basophils 0.1 10^3/uL (0-0.2); Absolute Eosinophils 0.3 10^3/uL (0-0.7); Absolute Lymphocytes 2.3 10^3/uL (1.2-3.4); Absolute Monocytes 0.9 10^3/uL (0.1-0.6); Absolute Neutrophils 5.5 10^3/uL (1.4-6.5); Hematocrit 41.1 % (39.0-52.0); Hemoglobin 14.8 g/dL (13.0-18.0); Mean Corpuscular Hgb 30.1 pg (27.0-31.0); Mean Corpuscular Volume 83.7 fL (80.0-94.0); Mean Platelet Volume 10.1 fL (7.4-10.4); Nucleated Red Blood Cells % 0 % (-); Platelet Count 260 10^3/uL (130-400); Red Blood Cell Count 4.91 10^6/uL (4.70-6.10); Red Cell Dist. Width 12.8 % (11.5-14.5); White Blood Cell Count 9.1 10^3/uL (4.8-10.8)
[2023-12-12 07:53] LABS: Glucose - Point of Care 139 mg/dl (70-99)
[2023-12-12] MEDS: NOVOLOG FLEXPEN-LOW RESISTANCE SC ×3 (07:55→17:09)
[2023-12-12 07:59] LABS: Blood Urea Nitrogen 20 mg/dl (9-20); Calcium 9.2 mg/dl (8.4-10.2); Carbon Dioxide 28 mmol/L (22-30); Chloride 103 mmol/L (98-107); Estimated Creatinine Clearance 88 ml/min; Glucose 145 mg/dl (70-99); Potassium 4.1 mmol/L (3.5-5.1); Sodium 140 mmol/L (135-145); eGFR > 60.00
[2023-12-12] MEDS: LOW STRENGTH ASPIRIN 81 MG PO (09:01)
[2023-12-12] MEDS: ELIQUIS 10 MG PO ×2 (09:01→22:17)
[2023-12-12] MEDS: ZESTRIL 20 MG PO (09:01)
[2023-12-12] MEDS: NSS (PRESERVATIVE FREE) IV (09:01)
[2023-12-12] MEDS: LEXAPRO 20 MG PO (09:01)
[2023-12-12] MEDS: PROTONIX 40 MG PO (09:01)
[2023-12-12] MEDS: NORVASC 5 MG PO (09:01)
[2023-12-12] MEDS: MIRALAX 17 GRAMS PO (09:02)
[2023-12-12 12:19] LABS: Glucose - Point of Care 125 mg/dl (70-99)
--- NOTE | 2023-12-12 13:15 | W.PN.HOSP.TC ---
Today's Communication/Plan
-
Monitor vital signs see plan
Continue with Eliquis
Per case work aide does not have authorization for SNF yet
Continue with BP meds
Assessment / Plan
Assessment / Plan
CT head
There is a focal area of CSF density in the right parietal lobe posterolaterally, and also extending to involve the posterior right occipital lobe, and these findings are compatible with encephalomalacia from old infarction.
There is also a small focus of CSF density in the anteromedial left thalamus, compatible with old infarction.
Focal area of decreased density involving loss in the posterior left occipital lobe, compatible with old infarction.
There is also a focal area of volume loss and decreased density involving the anteromedial right frontal lobe, as seen on image 19 of series 204, compatible with old infarction. Small foci of decreased density within the cerebellar hemispheres,
which likely represent small old infarct.
Moderate to severe leukomalacia is present.
Mild to moderate diffuse atrophy.
There is no evidence of acute intracranial hemorrhage. There is no midline shift.
There is significant calcification of the internal carotid arteries and middle cerebral arteries bilaterally. There is no CT evidence for a focal area of acute to subacute infarction.
The visualized paranasal sinuses appear clear. The mastoid air cells appear clear
CT chest PE
There is embolus in the distal aspect of the left main pulmonary artery, and extending into the interlobar and left lower lobe pulmonary arteries. Involvement of segmental branch within the left upper lobe and also probably involvement of the
lingular branches. Additionally, there appears to be a small embolus within a segmental branch within the right lower lobe. No evidence for embolus within the right main pulmonary artery. Possible embolus within the right anterior subsegmental
branch within the right upper lobe. The right ventricle is enlarged with deviation of the interventricular septum toward the left, findings suggesting right heart strain.
The thoracic aorta is fairly well opacified. There is mild to moderate atherosclerotic disease of the thoracic aorta. The aortic root appears prominent with transverse dimension of 4.2 cm. The ascending aorta is within normal limits of caliber. No
significant dilation of the aortic arch or the descending thoracic aorta.
There is no significant pleural effusion and no significant pericardial effusion.
Band of linear atelectasis within the posterior right lower lung. Mild dependent atelectasis in the posterior left lower lung.
No significant abnormality in the visualized upper abdomen.
Minimal dextroconvex scoliosis of the thoracic spine. Mild changes of degenerative disc disease with no evidence for compression fracture. Increased kyphosis centered at the cervicothoracic junction.
CTA H&N
Bilateral carotid bulb and proximal ICA calcification, with no evidence for hemodynamically significant stenosis.
Hypoplastic right A1 segment of the anterior cerebral artery.
Luminal irregularity and calcification involving the M1 portions of the middle cerebral arteries bilaterally, with no evidence for large vessel occlusion/high-grade stenosis.
Luminal irregularity of the posterior cerebral arteries bilaterally, compatible with multifocal mild to moderate stenoses. No evidence for significant narrowing of the vertebral or basilar arteries

slurred speech likely 2/2 acute/subacute CVA
Concern for new CVA
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
Residual left-sided weakness/vision loss
-Patient came in with question of new onset of dysarthria/speech changes
-CT head showing diffuse old infarct, no new bleed
-CTA head and neck done which did not show any large thrombus. Diffuse vascular changes as mentioned above on the report.
s/p TNK on admission
neurology follloiwng
MRI with acute/subacute infarction involving the left cerebellar hemisphere, left posterior occipital lobe and white matter of the left parietal occipital junction.
-Repeat CT head did not show any any brain bleed
now out of ICU
-Due to PE and simultaneous stroke concern of septal defect/ASD, echocardiogram 12/05 with no significant valvular disease. Dilated aortic root 4.1 cm.
-Neurology following and help appreciated
speech following; IDDS 5 diet now; VSE 12/06 noted. monitor
now transitioned to eliquis with loading dose; was ok'ed by neurology
cardiology following for possible MARGAUX and loop 12/08. MARGAUX with small Pfo; defer to cardiology regarding need for surgery, per my conversation with Dr Mai,would not need surgery, just AC for now. will monitor arrhythmia with loop
would need to follow up with hematology outpatient for malignancy work up
Bilateral PE - submassive
Right heart strain
per son at bedside; patient is not very ambulatory after his previous CVA; suspect lifelong AC
-Patient had diffuse bilateral PE on CT chest PE, also concern of RV strain by imaging standard
-Vitally patient stable and not tachycardic/not hypotensive
-Patient got 1/3 dose of TNK that he would have gotten for primary PE thrombolysis
-Lower extremity venous Doppler has ruled out any DVT
now on eliquis; loading dose until 12/13 then 5mg BID
would need malignancy work up outpatient
hx of diabetes
on metformin
A1c 6.6
cw accuchecks
Acute TME
-now improving
-Patient has been started on Keppra by neurology, now discontinued by neurology
-Avoid sedative meds.
Leukocytosis w/o fever
-reactive in nature, monitor off abx
-Chest x-ray questioning lower basilar infiltrate although likely atelectatic changes
-Septic workup including cultures antibiotic precardiac having a new fever
Dysphagia
-Speech following
HTN
Continue lisinopril, amlodipine
Labetalol as needed
DVT PPX - heparin
Full code
PT/OT rec SNF; per CM does not have auth yet
General: No Apparent Distress and Comfortable
HEENT: Negative Oxygen
Respiratory: Clear to Auscultation
Cardiac: Regular Rhythm and S1/S2; Negative Murmur or Rub
GI: Soft, Nontender and Nondistended
Musculoskeletal: No Edema
Neuro: Other (Left arm weakness); Negative Awake
Psych: Calm
Anticipated Discharge: Within 24 hours
Subjective/Interval History
-
Date of Service: December 12, 2023
denies pain
Objective Data
-
Labs:
Laboratory Results
12/12/23
06:23
WBC 9.1
Hgb 14.8
Hct 41.1
Plt Count 260
Sodium 140
Potassium 4.1
Chloride 103
Carbon Dioxide 28
BUN 20
Creatinine 0.8
Glucose 145 H
Calcium 9.2
Vital Signs:
Vital Signs
Temp Pulse Resp BP Pulse Ox
98 F 75 20 113/76 93
12/12/23 11:01 12/12/23 11:01 12/12/23 11:01 12/12/23 11:01 12/12/23 11:01
I&O
12/11/23 12/12/23 12/13/23
06:59 06:59 06:59
Intake Total 240 / 240 480 / 480
Output Total 550 / 550 250 / 250
Balance -310 / -310 230 / 230
--- NOTE | 2023-12-12 14:10 | CM ---
Addendum entered by Hailey Zambrano 12/12/23 15:32:
Clinicals faxed to [employer]
Awaiting outcome of auth
Original Note:
CM reviewed pt with Dr Galvan- ready for dc
Bed confirmed with [facility]
Call with spouse- remains in agreement with [facility] on dc
Auth initiated with [employer] [phone]
Requested therapy eval pt today
Will need to fax therapy notes and clinicals once available [phone]
[employer] Pending Ref# [id number]
[facility] [phone]
Mars Purvis [phone]
Discharge Disposition- [facility] pending [employer] auth
PLOF confirmed with spouse
Pt is non-ambulatory
Able to transfer independently,stand and pivot into WC
Unable to self propel WC as left arm weakness
Is right hand dominant and able to perform care/feed with right hand
[2023-12-12 17:08] LABS: Glucose - Point of Care 110 mg/dl (70-99)
[2023-12-12] MEDS: LIPITOR 40 MG PO (17:10)
[2023-12-12 21:22] LABS: Glucose - Point of Care 173 mg/dl (70-99)
[2023-12-13 03:06] VITALS: BP 128/78
[2023-12-13 07:00] VITALS: BP 138/76
[2023-12-13 08:14] LABS: Glucose - Point of Care 125 mg/dl (70-99)
[2023-12-13] MEDS: ZESTRIL 20 MG PO (08:24)
[2023-12-13] MEDS: NOVOLOG FLEXPEN-LOW RESISTANCE SC (08:24)
[2023-12-13] MEDS: PROTONIX 40 MG PO (08:24)
[2023-12-13] MEDS: LEXAPRO 20 MG PO (08:25)
[2023-12-13] MEDS: ELIQUIS 10 MG PO (08:25)
[2023-12-13] MEDS: NORVASC 5 MG PO (08:25)
[2023-12-13] MEDS: LOW STRENGTH ASPIRIN 81 MG PO (08:25)
[2023-12-13] MEDS: NSS (PRESERVATIVE FREE) 10 ML IV (08:25)
[2023-12-13] MEDS: MIRALAX 17 GRAMS PO (08:26)
[2023-12-13] MEDS: DESENEX/MITRAZOL/ZEASORB 1 APPLIC TOPICAL (08:26)
[2023-12-13 08:53] LABS: % Basophils 0.9 % (0-2); % Eosinophils 3.1 % (0-6); % Immature Granulocytes 0.3 % (0-0.5); % Lymphocytes 24.7 % (20.5-51.1); % Monocytes 9.5 % (1.7-9.3); % Neutrophils 61.5 % (42.2-75.2); Absolute Basophils 0.1 10^3/uL (0-0.2); Absolute Eosinophils 0.3 10^3/uL (0-0.7); Absolute Lymphocytes 2.3 10^3/uL (1.2-3.4); Absolute Monocytes 0.9 10^3/uL (0.1-0.6); Absolute Neutrophils 5.8 10^3/uL (1.4-6.5); Hematocrit 42.9 % (39.0-52.0); Hemoglobin 15.5 g/dL (13.0-18.0); Mean Corp Hgb Conc. 36.1 g/dL (33.0-37.0); Mean Corpuscular Hgb 30.2 pg (27.0-31.0); Mean Corpuscular Volume 83.6 fL (80.0-94.0); Mean Platelet Volume 9.8 fL (7.4-10.4); Nucleated Red Blood Cells % 0 % (-); Platelet Count 280 10^3/uL (130-400); Red Blood Cell Count 5.13 10^6/uL (4.70-6.10); Red Cell Dist. Width 12.8 % (11.5-14.5); White Blood Cell Count 9.4 10^3/uL (4.8-10.8)
[2023-12-13 09:30] LABS: Blood Urea Nitrogen 18 mg/dl (9-20); Calcium 9.6 mg/dl (8.4-10.2); Carbon Dioxide 27 mmol/L (22-30); Chloride 102 mmol/L (98-107); Estimated Creatinine Clearance 88 ml/min; Glucose 140 mg/dl (70-99); Potassium 4.2 mmol/L (3.5-5.1); Sodium 140 mmol/L (135-145); eGFR > 60.00
--- NOTE | 2023-12-13 10:53 | W.PN.HOSP.TC ---
Today's Communication/Plan
-
dc planning
Assessment / Plan
Assessment / Plan
CT head
There is a focal area of CSF density in the right parietal lobe posterolaterally, and also extending to involve the posterior right occipital lobe, and these findings are compatible with encephalomalacia from old infarction.
There is also a small focus of CSF density in the anteromedial left thalamus, compatible with old infarction.
Focal area of decreased density involving loss in the posterior left occipital lobe, compatible with old infarction.
There is also a focal area of volume loss and decreased density involving the anteromedial right frontal lobe, as seen on image 19 of series 204, compatible with old infarction. Small foci of decreased density within the cerebellar hemispheres,
which likely represent small old infarct.
Moderate to severe leukomalacia is present.
Mild to moderate diffuse atrophy.
There is no evidence of acute intracranial hemorrhage. There is no midline shift.
There is significant calcification of the internal carotid arteries and middle cerebral arteries bilaterally. There is no CT evidence for a focal area of acute to subacute infarction.
The visualized paranasal sinuses appear clear. The mastoid air cells appear clear
CT chest PE
There is embolus in the distal aspect of the left main pulmonary artery, and extending into the interlobar and left lower lobe pulmonary arteries. Involvement of segmental branch within the left upper lobe and also probably involvement of the
lingular branches. Additionally, there appears to be a small embolus within a segmental branch within the right lower lobe. No evidence for embolus within the right main pulmonary artery. Possible embolus within the right anterior subsegmental
branch within the right upper lobe. The right ventricle is enlarged with deviation of the interventricular septum toward the left, findings suggesting right heart strain.
The thoracic aorta is fairly well opacified. There is mild to moderate atherosclerotic disease of the thoracic aorta. The aortic root appears prominent with transverse dimension of 4.2 cm. The ascending aorta is within normal limits of caliber. No
significant dilation of the aortic arch or the descending thoracic aorta.
There is no significant pleural effusion and no significant pericardial effusion.
Band of linear atelectasis within the posterior right lower lung. Mild dependent atelectasis in the posterior left lower lung.
No significant abnormality in the visualized upper abdomen.
Minimal dextroconvex scoliosis of the thoracic spine. Mild changes of degenerative disc disease with no evidence for compression fracture. Increased kyphosis centered at the cervicothoracic junction.
CTA H&N
Bilateral carotid bulb and proximal ICA calcification, with no evidence for hemodynamically significant stenosis.
Hypoplastic right A1 segment of the anterior cerebral artery.
Luminal irregularity and calcification involving the M1 portions of the middle cerebral arteries bilaterally, with no evidence for large vessel occlusion/high-grade stenosis.
Luminal irregularity of the posterior cerebral arteries bilaterally, compatible with multifocal mild to moderate stenoses. No evidence for significant narrowing of the vertebral or basilar arteries

slurred speech likely 2/2 acute/subacute CVA
Concern for new CVA
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
Residual left-sided weakness/vision loss
-Patient came in with question of new onset of dysarthria/speech changes
-CT head showing diffuse old infarct, no new bleed
-CTA head and neck done which did not show any large thrombus. Diffuse vascular changes as mentioned above on the report.
s/p TNK on admission
neurology follloiwng
MRI with acute/subacute infarction involving the left cerebellar hemisphere, left posterior occipital lobe and white matter of the left parietal occipital junction.
-Repeat CT head did not show any any brain bleed
- out of ICU
-Due to PE and simultaneous stroke concern of septal defect/ASD, echocardiogram 12/05 with no significant valvular disease. Dilated aortic root 4.1 cm.
-Neurology followed and help appreciated
speech following; IDDS 5 diet now; VSE 12/06 noted. monitor
now transitioned to eliquis with loading dose; was ok'ed by neurology
cardiology following for possible MARGAUX and loop 12/08. MARGAUX with small Pfo; defer to cardiology regarding need for surgery, per my conversation with Dr Mai,would not need surgery, just AC for now. will monitor arrhythmia with loop
would need to follow up with hematology outpatient for malignancy work up
Bilateral PE - submassive
Right heart strain
per son at bedside; patient is not very ambulatory after his previous CVA; suspect lifelong AC
-Patient had diffuse bilateral PE on CT chest PE, also concern of RV strain by imaging standard
-Vitally patient stable and not tachycardic/not hypotensive
-Patient got 1/3 dose of TNK that he would have gotten for primary PE thrombolysis
-Lower extremity venous Doppler has ruled out any DVT
- Heparin started on pm dose of 12/04, Eliquis started on 12/06, loading dose until 12/13 then 5mg BID
would need malignancy work up outpatient
hx of diabetes
on metformin
A1c 6.6
cw AccuCheck
Acute TME
-now improved, following commands, pleasant, calm
-Patient has been started on Keppra by neurology, now discontinued by neurology
-Avoid sedative meds.
Leukocytosis w/o fever
-reactive in nature, monitor off abx
-Chest x-ray questioning lower basilar infiltrate although likely atelectatic changes
-Septic workup including cultures antibiotic precardiac having a new fever
Dysphagia
-Speech following
HTN
Continue lisinopril, amlodipine
Labetalol as needed
DVT PPX - heparin
Full code
Physical exam:
General: No Apparent Distress and Comfortable
HEENT: Negative Oxygen
Respiratory: Clear to Auscultation
Cardiac: Regular Rhythm and S1/S2;
GI: Soft, Nontender and Nondistended
Musculoskeletal: No Edema
Neuro: awake, he followed commands, no tremor or slurred speech
Psych: Calm
Total discharge time spent to see the patient, examine the patient on the floor, review data and lab results, discuss discharge plan with patient, nurse case management, nursing staff around 65 minutes
Anticipated Discharge: Today
Subjective/Interval History
-
Date of Service: December 13, 2023
No complaints
He denies chest pain, sob, abdominal pain
Objective Data
-
Labs:
Laboratory Results
12/13/23 12/13/23
08:31 08:32
WBC 9.4
Hgb 15.5
Hct 42.9
Plt Count 280
Sodium 140
Potassium 4.2
Chloride 102
Carbon Dioxide 27
BUN 18
Creatinine 0.8
Glucose 140 H
Calcium 9.6
Vital Signs:
Vital Signs
Temp Pulse Resp BP Pulse Ox
97.9 F 78 18 138/76 95
12/13/23 07:00 12/13/23 08:24 12/13/23 07:00 12/13/23 08:24 12/13/23 07:00
I&O
12/12/23 12/13/23 12/14/23
06:59 06:59 06:59
Intake Total 480 / 480 600 / 600
Output Total 250 / 250
Balance 230 / 230 600 / 600
[2023-12-13 11:00] VITALS: BP 116/56
[2023-12-13 11:10] VITALS: BP 126/80
[2023-12-13 11:23] VITALS: BP 138/76; PULSE 78
[2023-12-13 11:58] LABS: Glucose - Point of Care 259 mg/dl (70-99)
[2023-12-13] MEDS: NOVOLOG FLEXPEN-LOW RESISTANCE 3 UNITS SC (12:06)
--- NOTE | 2023-12-13 12:12 | CM ---
efficiency manager received Auth for skilled placement and spoke with admissions at [facility], per admissions at [facility] they have a bed available for patient today at [facility], Auth is from 12/12/23-12/15/23, Auth [id number] with Katt Tripathi
, .
[facility]
Report [phone]

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
[2023-12-13 15:00] VITALS: BP 122/53
--- NOTE | 2023-12-13 18:02 | W.DCSUMMARY ---
Discharge Summary
Discharge Data
Date of Admission: 12/04/23
Date of Discharge: 12/13/23
-
Pending Results: No
Hospital Course
68 years old male with history of CVA with left-sided hemiparesis, hypertension, GERD, and diabetes presented with nausea, right-sided gaze, expressive aphasia, and dysarthria (12/04/23). He was diagnosed with acute stroke and seen by neurologist.
He was given TNK. Brain imaging has revealed focal area of acute to subacute infarction involving the left temporal lobe, as well as small foci of acute to subacute infarction involving the left cerebellar hemisphere, the left posterior occipital
lobe, and the white matter of the left parieto-occipital junction. Multiple regions of old infarction. Moderate atrophy. Severe leukomalacia. Additionally, chest CT revealed PE, submassive and bilaterally. Patient was seen by pulmonary doctor. He
was started on IV heparin after consulting with neurologist and later switched to Eliquis treatment. Patient had cardiology evaluation due to combination of stroke and pulmonary embolism. Margaux was done and revealed a small PFO but cardiology did not
recommend surgery and patient received loop monitor implant to monitor for arrhythmias. MARGAUX showed Left ventricular ejection fraction is 60-65%. Normal regional wall motion. Normal right ventricular size and function. No thrombus detected in the
left atrial appendage. Small patent foramen ovale present (confirmed by color Doppler flow across the septum). Positive bubble study consistent with [id number] shunting. No significant valve abnormalities. Patient remained hemodynamically
stable. He was followed by neurologist. He received physical evaluation and recommended [facility] facility placement. Doppler ultrasound of lower extremities did not show deep venous thrombosis. Patient remained stable on Eliquis
treatment. He was discharged to [facility] facility in a stable condition. Patient will continue to follow-up with neurology, cardiology and pulmonary in outpatient setting.
Discharge Plan
-
Patient Disposition: Shelter/SNF
Discharge Diagnosis/Procedures: -Acute/subacute infarction involving the left cerebellar hemisphere, left posterior occipital lobe and white matter of the left parietal occipital junction.
-Bilateral pulmonary embolism, c/w loading dose of Eliquis through 12/13, start 5 mg bid dose on 12/14.
- Cryptogenic stroke status post Loop device implant
Condition: Good
Bathing Restrictions: After dressing removed
Stand Alone Forms: DC Inst - Implanted Device
Referrals:
[facility] [Provider Group] - 12/23/23 1:00 pm (Incision check appointment)
Raul Salazar DO [Family Provider] - in one to two weeks
Valerio Subramanian MD [Active] - in four to six weeks (full PFTs on day of office visit)
Marino Marley MD [Active] - in one month
Prescriptions:
New
atorvastatin 40 mg Tablet
40 mg PO QPM Qty: 30 0RF
polyethylene glycol 3350 [HealthyLax] 17 gram Powder In Packet
17 g PO DAILY Qty: 30 0RF
Eliquis 5 mg Tablet
10 mg PO BID Qty: 3 0RF
acetaminophen 325 mg Tablet
650 mg PO Q4HPRN PRN (Reason: CAMPBELL, mild pain, or temp >100.4F) Qty: 10 0RF
Eliquis 5 mg tablet
5 mg PO BID Qty: 30 0RF
Rx Instructions:
Start this dose on 12/14.
Continued
escitalopram oxalate [Lexapro] 20 mg Tablet
20 mg PO DAILY
metformin 500 mg Tablet
500 mg PO BID
lisinopril 20 mg Tablet
20 mg PO DAILY
amlodipine 5 mg Tablet
5 mg PO DAILY
aspirin 81 mg Tablet,Chewable
81 mg PO DAILY
esomeprazole magnesium 20 mg Tablet,Delayed Release (Dr/Ec)
20 mg PO DAILY
Discharge Orders:
Discharge Patient (As Directed); Ordered 12/13/23
Ordered By: Remigio Fowler
Discharge Date and Time
Discharge Date/Time: 12/13/23 17:10
Print Language: JAPANESE
== END 2023-12-13 17:10 | DRG 40 ==
LOC: 4 WEST ACU 21:23
PROVIDERS: Internal Medicine; Internal Medicine Cardiovascular Disease; Internal Medicine Critical Care Medicine; Nurse Practitioner Family; ADMITTING PHYSICIAN Hospitalist; ATTENDING PHYSICIAN Internal Medicine; CONSULT PHYSICIAN Internal Medicine; CONSULT PHYSICIAN Internal Medicine Critical Care Medicine; CONSULT PHYSICIAN Psychiatry & Neurology Neurology; EMERGENCY PHYSICIAN Emergency Medicine; FAMILY PHYSICIAN Internal Medicine
PROC: 3E04317 Introduction of Other Thrombolytic into Central Vein, Percutaneous Approach (ICD-10-PCS; 2023-12-04)
PROC: 0JH632Z Insertion of Monitoring Device into Chest Subcutaneous Tissue and Fascia, Percutaneous Approach (ICD-10-PCS; 2023-12-09)
DX: I63.89 Other cerebral infarction (principal); I26.99 Other pulmonary embolism without acute cor pulmonale; I69.354 Hemiplegia and hemiparesis following cerebral infarction affecting left non-dominant side; Q21.12 Patent foramen ovale; G93.49 Other encephalopathy; J98.11 Atelectasis; F32.A Depression, unspecified; E11.65 Type 2 diabetes mellitus with hyperglycemia; I10 Essential (primary) hypertension; Z66 Do not resuscitate; I69.398 Other sequelae of cerebral infarction; I67.81 Acute cerebrovascular insufficiency; R47.01 Aphasia; R29.717 NIHSS score 17; H54.62 Unqualified visual loss, left eye, normal vision right eye; R47.1 Dysarthria and anarthria; H53.40 Unspecified visual field defects; R41.3 Other amnesia; D72.829 Elevated white blood cell count, unspecified; K21.9 Gastro-esophageal reflux disease without esophagitis; Z79.82 Long term (current) use of aspirin; Z79.84 Long term (current) use of oral hypoglycemic drugs; Z79.899 Other long term (current) drug therapy; Z99.3 Dependence on wheelchair; Z82.49 Family history of ischemic heart disease and other diseases of the circulatory system
CPT/HCPCS: 33285; 70450; 70496; 70498; 70551; 71045; 71275; 74230; 80048; 80053; 80061; 82607; 82962; 83036; 83735; 84100; 84443; 85025; 85027; 85384; 85610; 85730; 92507; 92523; 92526; 92610; 92611; 93005; 93307; 93312; 93320; 93325; 93970; 96374; 97112; 97116; 97163; 97167; 97530; 97535; 99291; C1764; J3101; Q9967

== ENCOUNTER 2024-03-23 14:55 | Inpatient (IN) | payer OTHER, SELFPAY ==
[2024-03-23] VITALS (10 sets, daily range): BP systolic 150–212; BP diastolic 54–113; BMI 23.0
[2024-03-23 12:08] LABS: Glucose - Point of Care 127 mg/dl (70-99)
--- NOTE | 2024-03-23 12:12 | CON.NEURO ---
Addendum entered and electronically signed by Monse Philip MD 03/24/24 18:59:
I reviewed all radiology and labs along with past medical records pertinent to current medical problems, total time spent in patient care is 67 minutes.
�Thank you for allowing us to participate in the care of this patient. We will continue to follow. Please do not hesitate to contact us with any questions or concerns.
Original Note:
Consultation
Order
Date of Consultation: 03/23/24
Requesting Provider: Cheng Guillaume PA-C
Reason for Consult: stroke alert
prehospital notification: 11:58 am
Neurolog consult note.
HPI: This is a 68-year-old right-handed man who presented to [facility] on 03/23/2024 with multifactorial encephalopathy. According to patient's spouse Mr. Barrow had not been feeling well and was supposed to have blood work today.
He was seen in usual state of health around 7 PM on 03/22/2024 before was found to be nonverbal with left gaze preference around 10 AM today. No reports of abnormal movements, recently started to discontinued medications. Has been receiving Eliquis
regularly.
ER VS: 173/113-212/102, 101, no T has been recorded.
CT head-chronic left MCA/EMERGENCY ROOM PHYSICIAN territory infarcts, no ICH, mild atrophy, severe periventricular hypodensities. CTA head/neck(03/23/2024)- No evidence of M1 nor M2 occlusion.
Mr. Han was seen by neurology team in November 2023 diagnosed with acute left MCA/left ALTAGRACIA territory stroke/PFO as well as an acute PE.
Brain MRI without gadolinium (12/06/2023)�acute/subacute left MCA/L SCA territory infarcts, chronic L EMERGENCY ROOM PHYSICIAN/MCA large infarct, chronic bilateral cerebellar, thalamic, lentiform nuclei infarcts. Moderate atrophy and severe leukoaraiosis.
CTA head/neck(12/04/2023) luminal irregularity and calcification involving the M1 portions of the middle cerebral arteries bilaterally, with no evidence for large vessel occlusion/high-grade stenosis.
multifocal mild to moderate BL EMERGENCY ROOM PHYSICIAN stenoses.
TTE-PFO
LE Dopper US(12/05/2023) no evidence for deep venous thrombosis bilaterally.
PMH: L MCA/L SCA stroke(11/2023), PE, PFO, HTN, DLP, DM, cognitive deficits
PSH: ILR(11/2023)
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
All:NKDA
ROS: Positive for chronic cognitive deficits, L HP. Negative for headache, change in vision or strength
General: In no acute distress.
Neuro:
Mental Status: Alert, left gaze preference. No verbal output. Does not follow requests.
Cranial Nerves: Pupils are equally round and reactive to light. Dawson BTT . Mild L ptosis. Mild L facial weakness
Motor: Increased motor tone left greater than right. Left arm leg and right leg drift. Spontaneous movements in the right upper extremity antigravity
Sensory: unable to assess
Coordination: intermittent left leg rhythmic movements
Gait: Nonambulatory
Assessment and Plan:
I. Left MCA/ALTAGRACIA stroke vs focal complex seizure.
II. L MCA/L SCA stroke(11/2023, s/p TNK)
III. Intracranial atherosclerosis
IV. PFO
V. Encephalopathy(vascular, ictal?)
. Pulmonary embolism on Eliquis
-Continue Telemetry monitoring.
-Seizure and aspiration precautions.
-[place] check temperature
-Cautious lowering of BP by approximately 15 % during the first 24 hours is SBP >220 mmHg or diastolic blood pressure >120 mmHg;
-Restart antihypertensive medications during if BP>140/90 mmHg who are neurologically stable in 24 to 48 hours after stroke onset;
-ASA 81 mg PO or 300 mg HI until brain MRI is completed
-Ativan 2 mg IV once followed by Keppra load 1g IV
-EEG TAYLER
-Cardiology consult�ILR interrogation
-Thrombophilia work up
-DVT prophylaxis.
-The case was discussed with patient's spouse
Subjective/Objective
Subjective Data
Date of Service: March 23, 2024
Objective Data
Vital Signs
Pulse Resp BP Pulse Ox
101 16 173/113 93
03/23/24 12:05 03/23/24 12:05 03/23/24 12:05 03/23/24 12:05
Patient Allergies
No Known Allergies Allergy (Unverified 12/04/23 20:30)
Medications
-
Home Medications
�Medication �Instructions �Recorded
amlodipine 5 mg tablet 5 mg PO DAILY Blood Pressure 12/05/23
aspirin 81 mg chewable tablet 81 mg PO DAILY Blood Clot 12/05/23
Prevention/Tx
escitalopram oxalate 20 mg tablet 20 mg PO DAILY Depression 12/05/23
(Lexapro)
esomeprazole magnesium 20 mg 20 mg PO DAILY Gastrointestinal 12/05/23
tablet,delayed release Issue
lisinopril 20 mg tablet 20 mg PO DAILY Blood Pressure 12/05/23
metformin 500 mg tablet 500 mg PO BID Diabetes 12/05/23
acetaminophen 325 mg tablet 650 mg (2 x 325 mg) PO Q4HPRN PRN 12/13/23
CAMPBELL, mild pain, or temp >100.4F #10
tabs
apixaban 5 mg tablet (Eliquis) 5 mg PO BID #30 tabs 12/13/23
apixaban 5 mg tablet (Eliquis) 10 mg (2 x 5 mg) PO BID #3 tabs 12/13/23
atorvastatin 40 mg tablet 40 mg PO QPM #30 tabs 12/13/23
polyethylene glycol 3350 17 gram 17 g PO DAILY #30 ea 12/13/23
oral powder packet (HealthyLax)
Vital Signs and Labs
-
Vital Signs and Labs:
Vital Signs
Pulse Resp BP Pulse Ox
100 19 165/84 93
03/23/24 13:30 03/23/24 13:30 03/23/24 13:00 03/23/24 13:30
Lab Results
03/23/24 12:14
03/23/24 12:14
PT 13.7 Sec (11.4-14.6) 03/23/24 12:14
INR 1.00 03/23/24 12:14
APTT 28.2 Sec (23.4-35.0) 03/23/24 12:14
Sodium 141 mmol/L (135-145) 03/23/24 12:14
Potassium 4.5 mmol/L (3.5-5.1) 03/23/24 12:14
BUN 13 mg/dl (9-20) 03/23/24 12:14
Glucose 133 mg/dl (70-99) H 03/23/24 12:14
Calcium 9.5 mg/dl (8.4-10.2) 03/23/24 12:14
Medications
-
Medications:
Generic Name Dose Route Start Last Admin
Trade Name Freq PRN Reason Stop Dose Admin
Levetiracetam 500 mg 03/23/24 20:00
Levetiracetam (100 Mg/Ml) 500 Mg/5 Ml Vial IV 04/20/24 19:59
Q12 IKER
Sodium Chloride 1 ml 03/23/24 14:00 03/23/24 13:32
Nss (Pf) 10 Ml Vial For Ativan 2 Mg Dose IV 03/23/24 14:01 1 ml
ONCE ONE Administration
Home Medications
-
Home Medications
amlodipine 5 mg tablet 5 mg PO DAILY Blood Pressure 12/05/23
escitalopram oxalate 20 mg tablet (Lexapro) 20 mg PO DAILY Depression 12/05/23
lisinopril 20 mg tablet 20 mg PO DAILY Blood Pressure 12/05/23
metformin 500 mg tablet 500 mg PO BID Diabetes 12/05/23
apixaban 5 mg tablet (Eliquis) 5 mg PO BID #30 tabs 12/13/23
atorvastatin 40 mg tablet 40 mg PO QPM #30 tabs 12/13/23
coffee extract 100 mg-phosphatidyl serine 100 mg capsule (Neuriva Original) 1 cap PO DAILY 03/23/24
cyanocobalamin (vitamin B-12) 1,000 mcg tablet 1,000 mcg PO DAILY 03/23/24
[id number]-[id number] 8 mg-folic ac 400 mcg-vit K 10 mcg chew tablet (Centrum Chewables) 1 tab PO DAILY 03/23/24
[2024-03-23] MEDS: KEPPRA 1000 MG IV (12:27)
[2024-03-23 12:32] LABS: % Basophils 0.7 % (0-2); % Eosinophils 2.4 % (0-6); % Immature Granulocytes 0.2 % (0-0.5); % Lymphocytes 26.7 % (20.5-51.1); % Monocytes 8.2 % (1.7-9.3); % Neutrophils 61.8 % (42.2-75.2); Absolute Basophils 0.1 10^3/uL (0-0.2); Absolute Eosinophils 0.2 10^3/uL (0-0.7); Absolute Lymphocytes 2.4 10^3/uL (1.2-3.4); Absolute Monocytes 0.8 10^3/uL (0.1-0.6); Absolute Neutrophils 5.6 10^3/uL (1.4-6.5); Hematocrit 42.5 % (39.0-52.0); Hemoglobin 14.8 g/dL (13.0-18.0); Mean Corp Hgb Conc. 34.8 g/dL (33.0-37.0); Mean Platelet Volume 9.5 fL (7.4-10.4); Nucleated Red Blood Cells % 0 % (-); Platelet Count 290 10^3/uL (130-400); Red Blood Cell Count 4.94 10^6/uL (4.70-6.10); Red Cell Dist. Width 13.1 % (11.5-14.5); White Blood Cell Count 9.1 10^3/uL (4.8-10.8)
--- NOTE | 2024-03-23 12:33 | ED.CVA ---
History of Present Illness
<Cheng Guillaume PA-C - Last Filed: 03/23/24 15:13>
General
Chief Complaint: CVA/TIA Symptoms
Source: family and ambulance crew
Time Seen by Provider: 03/23/24 12:08
Onset of Stroke Symptoms
Onset of symptoms known: No
Time pt last seen normal is known: Yes
Date last time pt seen normal: 03/22/24
Time last time pt seen normal: 19:00
History of Present Illness
History of Present Illness:
68-year-old male with past medical history of CVA with chronic left-sided deficits, hypertension, diabetes presenting to the ER via EMS from home after family noticed around 10 AM patient was not speaking and had a left-sided gaze, last known normal
7 PM last night when he went to bed. Patient has chronic deficits that left him with inability to ambulate or dress himself but he is still able to talk and feed himself. Patient is on Eliquis and is reportedly compliant with it. Patient unable
to provide any history secondary to current mental status. No reported fevers or infectious symptoms. Prehospital stroke alert had been called.
Past History
<Cheng Guillaume PA-C - Last Filed: 03/23/24 15:13>
Past History
ED Past Medical History: CVA, HTN and NIDDM
ED Past Surgical History: None
Social History
Tobacco: Non-smoker
Alcohol: None
Drug: None
Personal:
Living: with family
Review of Systems
<Cheng Guillaume PA-C - Last Filed: 03/23/24 15:13>
Review of Systems
Unable to obtain full review of systems at this time due to: due to acuity
Other source history: family and ambulance crew
Phy Exam
<Cheng Guillaume PA-C - Last Filed: 03/23/24 15:13>
Physical Exam
Physical Exam:
GENERAL: Alert , in no apparent distress, not answering questions
HEAD: NCAT
EYE: pupils equal and reactive, left-sided gaze preference
NECK: Supple
ENT: o/p clr, dry mucous membranes
CARDIAC: Regular rate and rhythm .
LUNGS: Clear breath sounds bilaterally, no acute respiratory distress, no wheezes/rales/rhonchi
ABDOMEN: Soft, without focal tenderness, no r/g, no cvat
SKIN: Warm and dry, skin intact.
MUSCULOSKELETAL: No edema, well perfused.
PSYCH: Unable to assess
NEURO: Please see NIH score
Scores
<Cheng Guillaume PA-C - Last Filed: 03/23/24 15:13>
NIH Stroke Score
Level of Consciousness: 1 - Arousable
LOC Questions: 2-Neither correct
LOC Commands: 1-Performs one correctly
Best Horizontal Gaze: 2-Total gaze palsy
Visual Leyva: 1=Partial hemianopia
Facial Palsy: 1=Minor paralysis
Motor - Right Arm: 0=No drift 10 seconds
Motor - Left Arm: 0=No drift 10 seconds
Motor - Right Le-No drift 5 seconds
Motor - Left Le-No drift 5 seconds
Limb Ataxia: 0-Absent
Sensation: 0-Normal
Best Language: 2-Severe aphasia
Dysarthria: 0-Normal
Extinction and Inattention: 0-No abnormality
Total Score:: 10
Thrombolytic Contraindication
Inclusion and Exclusion criteria reviewed: Yes
Reasons for NON-Tx with Thrombolytics ABSOLUTE Exclusions: Greater than 4.5 hrs from onset of sxs
<Kb Pierce DO - Last Filed: 03/23/24 15:21>
NIH Stroke Score
Total Score:: 10
Course
<Cheng Guillaume PA-C - Last Filed: 03/23/24 15:13>
Orders/Labs/Results
Orders:
Orders
03/23/24 12:08
CT HEAD STROKE ALERT W/o Cont Urgent
Comment:
Reason For Exam: left gaze preference, dysarthria
CT HEAD/NECK ANG STROKE ALERT Urgent
Comment:
Reason For Exam: left gaze preference, dysarthria
03/23/24 12:11
Electrocardiogram (*1) Urgent
Reason for Study: TIA/Stroke
EKG- Treatment ONCE
03/23/24 12:12
Urinalysis Reflex To Culture Urgent
03/23/24 12:14
Basic Metabolic Panel Urgent
Complete Blood Count/With Diff Urgent
PTT Urgent
Prothrombin Time Urgent
03/23/24 12:17
Levetiracetam Injectable [Keppra] 1,000 mg IV NOW STA
03/23/24 12:32
Labetalol HCl [Trandate] 10 mg IV NOW STA
03/23/24 13:12
Lorazepam [Ativan] 2 mg IV NOW ONE
03/23/24 13:13
EEG Routine Urgent
Reason for Exam: seizure
03/23/24 13:30
Lorazepam [Ativan] 2 mg IV NOW STA
03/23/24 13:48
Admit/Transfer Patient As Directed
Co-Sign Provider:
Level of Care: Inpatient admission
Assign to:: Telemetry
Physician / Group: mirna
Diagnosis: CVA/seizure
Reason for Telemetry: CVA/TIA
Date to Stop Telemetry: 03/26/24
Time to Stop Telemetry: 11:00
Reason for Hospitalization: cva/seizure
Expected length of stay greater than two midnights?: Yes
ELOS- Estimated Length of Stay in days: 3
I certify the patient meets the requirements for IP care: Yes
PRN Pain Medication Management As Directed
May give lesser potent ordered pain med per pt: Yes
preference::
Protocol:: Medication orders for pain may be administered in a
manner that supports deferring to patient preference
when the pt is:
- Requesting an ordered lesser potent pain medication.
Least to most potent pain medications are defined
as: acetaminophen < NSAID < tramadol < opioids
(morphine, oxycodone, hydromorphone).
- Requesting a lesser dose of the same medication IF
ORDERED.
- Requesting a less intrusive route of administration
if both routes are prescribed by the provider (PO <
IV).
03/23/24 13:49
Code Status As Directed
Resuscitation Status: Do not resuscitate
Reached after discussion with pt or family/Healthcare POA: Yes
DNR Bracelet Application ONCE
03/23/24 14:00
0.9% Sodium Chloride [Nss (Preservative Free)] 1 ml IV ONCE ONE
03/23/24 20:00
Levetiracetam Injectable [Keppra] 500 mg IV Q12
03/26/24 11:00
DC Protocol for Telemetry ONCE
Abnormal Lab Results
03/23/24 03/23/24
12:07 12:14
Absolute Monos (auto) 0.8 H 10^3/uL
(0.1-0.6)
Carbon Dioxide 34 H mmol/L
(22-30)
Glucose 133 H mg/dl
(70-99)
POC Glucose 127 H mg/dl
(70-99)
03/23/24 12:14
03/23/24 12:14
Vital Signs
Initial and Last Documented VS:
Initial Vital Signs
Pulse Resp BP Pulse Ox
101 16 173/113 93
03/23/24 12:05 03/23/24 12:05 03/23/24 12:05 03/23/24 12:05
Last Documented Vital Signs
Temp Pulse Resp BP Pulse Ox
99.4 F 98 15 163/90 92
03/23/24 14:53 03/23/24 14:30 03/23/24 14:30 03/23/24 14:00 03/23/24 14:30
<Kb Pierce, DO - Last Filed: 03/23/24 15:21>
Orders/Labs/Results
Orders:
Orders
03/23/24 12:08
CT HEAD STROKE ALERT W/o Cont Urgent
Comment:
Reason For Exam: left gaze preference, dysarthria
CT HEAD/NECK ANG STROKE ALERT Urgent
Comment:
Reason For Exam: left gaze preference, dysarthria
03/23/24 12:11
Electrocardiogram (*1) Urgent
Reason for Study: TIA/Stroke
EKG- Treatment ONCE
03/23/24 12:12
Urinalysis Reflex To Culture Urgent
03/23/24 12:14
Basic Metabolic Panel Urgent
Complete Blood Count/With Diff Urgent
PTT Urgent
Prothrombin Time Urgent
03/23/24 12:17
Levetiracetam Injectable [Keppra] 1,000 mg IV NOW STA
03/23/24 12:32
Labetalol HCl [Trandate] 10 mg IV NOW STA
03/23/24 13:12
Lorazepam [Ativan] 2 mg IV NOW ONE
03/23/24 13:13
EEG Routine Urgent
Reason for Exam: seizure
03/23/24 13:30
Lorazepam [Ativan] 2 mg IV NOW STA
03/23/24 13:48
Admit/Transfer Patient As Directed
Co-Sign Provider:
Level of Care: Inpatient admission
Assign to:: Telemetry
Physician / Group: mirna
Diagnosis: CVA/seizure
Reason for Telemetry: CVA/TIA
Date to Stop Telemetry: 03/26/24
Time to Stop Telemetry: 11:00
Reason for Hospitalization: cva/seizure
Expected length of stay greater than two midnights?: Yes
ELOS- Estimated Length of Stay in days: 3
I certify the patient meets the requirements for IP care: Yes
PRN Pain Medication Management As Directed
May give lesser potent ordered pain med per pt: Yes
preference::
Protocol:: Medication orders for pain may be administered in a
manner that supports deferring to patient preference
when the pt is:
- Requesting an ordered lesser potent pain medication.
Least to most potent pain medications are defined
as: acetaminophen < NSAID < tramadol < opioids
(morphine, oxycodone, hydromorphone).
- Requesting a lesser dose of the same medication IF
ORDERED.
- Requesting a less intrusive route of administration
if both routes are prescribed by the provider (PO <
IV).
03/23/24 13:49
Code Status As Directed
Resuscitation Status: Do not resuscitate
Reached after discussion with pt or family/Healthcare POA: Yes
DNR Bracelet Application ONCE
03/23/24 14:00
0.9% Sodium Chloride [Nss (Preservative Free)] 1 ml IV ONCE ONE
03/23/24 20:00
Levetiracetam Injectable [Keppra] 500 mg IV Q12
03/26/24 11:00
DC Protocol for Telemetry ONCE
Abnormal Lab Results
03/23/24 03/23/24
12:07 12:14
Absolute Monos (auto) 0.8 H 10^3/uL
(0.1-0.6)
Carbon Dioxide 34 H mmol/L
(22-30)
Glucose 133 H mg/dl
(70-99)
POC Glucose 127 H mg/dl
(70-99)
03/23/24 12:14
03/23/24 12:14
Vital Signs
Initial and Last Documented VS:
Initial Vital Signs
Pulse Resp BP Pulse Ox
101 16 173/113 93
03/23/24 12:05 03/23/24 12:05 03/23/24 12:05 03/23/24 12:05
Last Documented Vital Signs
Temp Pulse Resp BP Pulse Ox
99.4 F 98 15 163/90 92
03/23/24 14:53 03/23/24 14:30 03/23/24 14:30 03/23/24 14:00 03/23/24 14:30
<Cheng Guillaume PA-C - Last Filed: 03/23/24 15:13>
MDM/Problems Addressed
Differential Diagnosis Includes:
CVA, seizure, ICH
MDM/Problems Addressed:
68-year-old male presenting to the emergency department via EMS for evaluation after family woke him up this morning around 10 AM noticing left-sided gaze preference and inability to speak. Patient is normally awake alert and oriented x 3 but is
not able to ambulate or dress himself but is able to feed himself and communicate without difficulties. He does have some mild left-sided deficits from previous strokes. Prehospital stroke alert was called and patient was brought immediately to
CT. CTAs ordered as well. Neurology at bedside. Patient is not at NK candidate. Will treat with Keppra as well as Ativan. Patient significantly hypertensive on arrival here. Labetalol ordered however blood pressure improved just prior to
giving this. Plan for admission for further evaluation and treatment
Chronic conditions affecting care: HTN and Neurological disorder
Acute Exacerbation and/or Progression of Chronic Illness: HTN and Neurological disorder
<Cheng Guillaume PA-C - Last Filed: 03/23/24 15:13>
*Radiology
Radiology exam reviewed: radiology read reviewed
*Pulse Oximetry
Patient hypoxic: no
*EKG
Interpreted by ED Provider?: Yes
Heart Rate: 96
Rate: normal
Rhythm: sinus
[place]: normal axis
Ischemia: no ischemia
*Production Operator Interpretation
Rate: normal
Rhythm: sinus
*Critical Care Note
Total Time (30-74mins, 75-104mins- exclusive of procedures): Not Applicable
Data Reviewed
Review of Other/Old Records Reveals: Labs, Records, Radiology Studies and Discharge Summary
<Cheng Guillaume PA-C - Last Filed: 03/23/24 15:13>
Patient Management
Discussion with other providers: Hospitalist and Vp Account Director
Escalation/DeEscalation of care consider admission/obs:
Hospitalist team accepts for continued evaluation and treatment. Neurology to continue seeing in consult
ED Attending Note
<Cheng Guillaume PA-C - Last Filed: 03/23/24 15:13>
-
Portions of this chart may have been created with voice recognition software.� Occasional wrong word or��sound alike� substitutions may have occurred due to the inherent limitations of voice recognition software.
<Kb Pierce DO - Last Filed: 03/23/24 15:21>
ED Attending Note
Patient seen and examined by attending physician: Yes
ED Attending Note:
I have reviewed and agree with history and treatment plans by Giovanni Guillauem. Patient alert, with left gaze preference, nonverbal. Left facial weakness, left leg and arm drift. moves right arm against gravity. no indication for TNK or IAT. admit
for further evaluation
Discharge Plan
Departure
Patient Disposition: Admit
Date of Disposition: 03/23/24
Time of Disposition: 13:06
Presentation/result/management discussed w/ accepting MD/DO: Hospitalist
Discharge Problem:
Ischemic cerebrovascular accident (CVA), Hypertensive emergency
Interventions
Interventions:
*Risk Screen - Suicide Last Done: 03/23/24 12:05
*General Assessment Last Done: 03/23/24 12:05
*Neglect/Abuse Screening Last Done: 03/23/24 12:05
ED- Fall Risk Assessment Last Done: 03/23/24 12:05
*ED COVID-19 Vaccine History Last Done: 03/23/24 12:05
ED- Pulmonary Assessment Last Done: 03/23/24 12:05
ED- Neurological Assessment Last Done: 03/23/24 13:00
ED- Cardiac Assessment Last Done: 03/23/24 12:05
ED Swallowing Screen Last Done: 03/23/24 12:38
[2024-03-23 12:47] LABS: PT 13.7 Sec (11.4-14.6)
[2024-03-23 12:48] LABS: APTT 28.2 Sec (23.4-35.0)
[2024-03-23 12:52] LABS: Blood Urea Nitrogen 13 mg/dl (9-20); Calcium 9.5 mg/dl (8.4-10.2); Carbon Dioxide 34 mmol/L (22-30); Chloride 99 mmol/L (98-107); Glucose 133 mg/dl (70-99); Potassium 4.5 mmol/L (3.5-5.1); Sodium 141 mmol/L (135-145); eGFR > 60.00
[2024-03-23] MEDS: ATIVAN 2 MG IV (13:32)
[2024-03-23] MEDS: NSS (PRESERVATIVE FREE) 1 ML IV (13:32)
--- NOTE | 2024-03-23 13:32 | HPS.HSE ---
Family Physician
-
Family Physician: Mauricio Gandhi MD
Chief Complaint
-
Expressive aphasia
History of Present Illness
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
Patient was staring at the district plant engineer . He was not able to express anything . Patient usually assist with dressing , today he was not able to dress himself. He was not able to drink from the straw as well . Review of system is limited due to
patient's current mental status . History obtained from his denied any fever or chills. He has been sleeping more than usual for 1 week. He was supposed to get blood test tomorrow.
-Patient received a dose of normal saline, labetalol, Keppra, Ativan in the ER. EEG ordered in ER
Admitting for further management
Medical History
Past Medical History
Past Medical History: Reports Other
Additional Past Medical History:
Acute brainstem stroke
Acute atelectasis
GERD, hyperlipidemia, CVA, diabetes
Past Surgical History: Reports None
Social History
Tobacco: Non-smoker
Alcohol: None
Drug: None
Personal:
Living: With Family
Family History
Family History: Not pertinent
Allergies / Home Medications
Allergies reflects when Allergies were last updated in [facility].
Home Medications with original date entered in [facility]
Allergy/Medication List:
Allergies
Allergy/AdvReac Type Severity Reaction Status Date / Time
No Known Allergies Allergy Verified 03/23/24 13:14
Home Medications
amlodipine 5 mg tablet 5 mg PO DAILY Blood Pressure 12/05/23
escitalopram oxalate 20 mg tablet (Lexapro) 20 mg PO DAILY Depression 12/05/23
lisinopril 20 mg tablet 20 mg PO DAILY Blood Pressure 12/05/23
metformin 500 mg tablet 500 mg PO BID Diabetes 12/05/23
apixaban 5 mg tablet (Eliquis) 5 mg PO BID #30 tabs 12/13/23
atorvastatin 40 mg tablet 40 mg PO QPM #30 tabs 12/13/23
coffee extract 100 mg-phosphatidyl serine 100 mg capsule (Neuriva Original) 1 cap PO DAILY 03/23/24
cyanocobalamin (vitamin B-12) 1,000 mcg tablet 1,000 mcg PO DAILY 03/23/24
ggswilkp-vrpayzws-ciyr 8 mg-folic ac 400 mcg-vit K 10 mcg chew tablet (Centrum Chewables) 1 tab PO DAILY 03/23/24
Review of Systems
-
Constitutional: Reports Fatigue
EENT: Reports No Symptoms
Respiratory: Reports No Symptoms
Cardiac: Reports No Symptoms
Abdomen/GI: Reports No Symptoms
: Reports No Symptoms
Musculoskeletal: Reports No Symptoms
Skin: Reports No Symptoms
Neurological: Reports Other (Chronic left-sided weakness residual from previous stroke. Expressive aphasia)
Endocrine: Reports No Symptoms
Hematologic/Lymphatic: Reports No Symptoms
Psych: Reports No Symptoms
Physical Exam
Vital Signs
Vital Signs
Pulse Resp BP Pulse Ox
96 20 170/85 93
03/23/24 12:32 03/23/24 12:32 03/23/24 12:32 03/23/24 12:32
Physical Exam
General: Well Developed, Well Nourished and No Apparent Distress
HEENT: NormoCephalic, Moist mucous membranes and Atraumatic
Respiratory: Clear
Cardiac: S1/S2 and Regular Rhythm; No Murmur or Rub
GI: Soft, Non Tender, Non Distended and Normal Bowel Sounds; No Organomegaly
Rectal: Deferred by Provider
Musculoskeletal: No Clubbing, No Cyanosis and No Edema
Skin: No Rash
Neuro: Other (Chronic left-sided weakness)
Laboratory Results
-
03/23/24 12:14
03/23/24 12:14
Laboratory Results
PT 13.7 Sec (11.4-14.6) 03/23/24 12:14
INR 1.00 03/23/24 12:14
APTT 28.2 Sec (23.4-35.0) 03/23/24 12:14
Data Reviewed
-
Diagnostic Radiology: Report Reviewed by me
CT Scan: Report Reviewed by me
Lab Data: Labs Reviewed by me
Impression/Plan
-
# Suspected ischemic stroke versus seizure
-Head neck CT with admission No acute vascular pathology. No evidence of M1 nor M2 occlusion. No carotid dissection. No focal stenosis.
-Head CT with impression of Stable encephalomalacia of the right parietal lobe and occipital lobe consistent with old infarcts.
-EKG with sinus rhythm
-Obtain EEG
-IV Keppra continued
-Obtain MRI
-Seizure precaution
-Speech eval
#History of bilateral PE
-Eliquis
# Depression
-On Lexapro
#hx of diabetes
-Hold metformin
-cw AccuCheck
-Sliding scale
#HTN
-Hold Norvasc and lisinopril
-Labetalol as needed
DVT PPX -SCDs
Patient is DNR
--- NOTE | 2024-03-23 14:29 | W.PN.UPDATE ---
Update Note
Progress Note Update
This is an addendum to the H&P written by Nuzhat De La O on 03/23/2024. Patient seen and examined independently with DOUBLE NEEDLE STITCHER.
68-year-old male past medical history of CVA with chronic left-sided weakness, submassive PE in November on Eliquis, hypertension, diabetes, presenting with decreased speech and left-sided gaze around 10 AM today. Difficulty drinking from straw
and unable to dress himself. Increase sleep for the past week. He has been unresponsive.
Labs unremarkable. CT head and CTA head and neck unremarkable.
Concern for CVA versus seizure. Patient was given Ativan, Keppra for potential seizure. IV labetalol was given for systolic blood pressure of 170.
Check urinalysis. Check MRI brain, EEG. Continue Keppra. Patient cannot take p.o. medications so hold Eliquis. Rectal aspirin. Permissive hypertension up to 220 systolic. Neurology following.
--- NOTE | 2024-03-23 15:03 | CON.CAR ---
Addendum entered and electronically signed by Owen Farr MD 03/23/24 17:13:
68 yo male with PMH of CVA s/p ILR, PE on eliquis admitted with altered mental status. Being evaluated for seizure vs CVA. He is lethargic and does not offer history. Exam with tachy, regular rhythm, no murmurs, no edema. Tele: mild ST 100-110.
We are consulted for ILR interrogation. We interrogated the device, and there has been no A fib.
Please call us back with additional questions.
Original Note:
Consultation
Consultation Request
Date/Time Consultation Requested: 03/23/24 1426
Date/Time Consultation Performed: 03/23/24 1502
Requesting Provider: Nuzhat De La O
Performing Provider: Rajni MARTINEZ for Dr. Farr
Reason for Consultation: assess for arrhythmia on loop recorder
Medical History
-
Chief Complaint: change in mental status
History of Present Illness:
68 y/o male with hx CVA's, hypertension, GERD, and DM. He was admitted in November 2023 for stroke and was given TNK. He was also seen to have a PE and was placed on Eliquis. His noted he was more lethargic this AM. Then, his tea tree farmer noted
he wasn't helping with his care like usual and his words were slurred and his eyes didn't seem right. He came to the ER where head CT is negative for acute stroke. There is some concern for seizure activity and he is s/p Keppra and Ativan. He is
resting comfortably at the time of my assessment, but does not respond to voice. His reports he has been like this since he has been here. We are consulted to assess for arrhythmia on his loop recorder. EKG and telemetry show SR.
Past Medical History
Past Medical History: CVA, GERD, HTN and NIDDM
Social History
Tobacco: Non-Smoker
Personal:
Living: With Family
Family History
Family History: CAD (mom, older age)
Allergies / Home Medications
Allergy/AdvReac Type Severity Reaction Status Date / Time
No Known Allergies Allergy Verified 03/23/24 13:14
�Medication �Instructions �Recorded �Confirmed �Type
amlodipine 5 mg tablet 5 mg PO DAILY Blood Pressure 12/05/23 03/23/24 History
escitalopram oxalate 20 mg tablet 20 mg PO DAILY Depression 12/05/23 03/23/24 History
(Lexapro)
lisinopril 20 mg tablet 20 mg PO DAILY Blood Pressure 12/05/23 03/23/24 History
metformin 500 mg tablet 500 mg PO BID Diabetes 12/05/23 03/23/24 History
apixaban 5 mg tablet (Eliquis) 5 mg PO BID #30 tabs 12/13/23 03/23/24 Rx
atorvastatin 40 mg tablet 40 mg PO QPM #30 tabs 12/13/23 03/23/24 Rx
coffee extract 100 mg-phosphatidyl 1 cap PO DAILY 03/23/24 03/23/24 History
serine 100 mg capsule (Neuriva
Original)
cyanocobalamin (vitamin B-12) 1,000 mcg PO DAILY 03/23/24 03/23/24 History
1,000 mcg tablet
vgyoxihb-tqiapsfz-njey 8 mg-folic 1 tab PO DAILY 03/23/24 03/23/24 History
ac 400 mcg-vit K 10 mcg chew
tablet (Centrum Chewables)
Review of Systems
-
History Source: Family () and Other (chart)
Neurological: Other (change in MS as described)
Physical Exam
Vital Signs
Temp Pulse Resp BP Pulse Ox
99.4 F 98 15 163/90 92
03/23/24 14:53 03/23/24 14:30 03/23/24 14:30 03/23/24 14:00 03/23/24 14:30
Lab Results
03/23/24 12:14
03/23/24 12:14
Physical Exam
General: Well Developed, Well Nourished and No Apparent Distress
HEENT: Normocephalic
Respiratory: Clear and Non Labored Respirations
Cardiac: Regular Rhythm
Musculoskeletal: No Edema
Skin: Warm and Dry
Neuro: Other (not responsive to voice)
Impression / Plan
-
Change in mental status:
-neurology is on the case and assessing for seizure versus stroke- this diagnosis is threat to life/bodily function
-EEG, MRI pending
-recent echo imaging as noted
-loop interrogated and no arrhythmia noted
-lorazepam, Keppra given
-of note, he is on Eliquis as OP for PE, but has only been taking it once daily. Eliquis is a twice daily medication, so will need to be addressed when it is resumed.
Hx CVA:
-loop recorder shows no arrhythmia as above
-on Eliquis as OP for PE- see above. Also on statin as OP.
Hypertension:
-severe elevation on arrival, improved without intervention
-monitor
-on amlodipine and lisinopril as OP
HX PE:
-on Eliquis. Of note, per he has only been taking Eliquis once daily. Eliquis is a twice daily medication.
Data Reviewed
-
EKG: Tracing Personally Visualized and interpreted (NSR 96 BPM- stable)
CT Scan: Report Reviewed by me (Head CT: No acute intracranial pathology. Moderate periventricular small vessel ischemic disease. Mild atrophy. Stable encephalomalacia of the right parietal lobe and occipital lobe consistent with old infarcts. Mild
nonacute sinusitis. Stable)
Medical Tests (Nuc Med, Echo etc): Report Reviewed by me (Echo 12/06/23: EF 60-65%. No significant valvular disease. Dilated aortic root- 4.1 cm) and Other (MARGAUX 12/09/23: EF 60-65%. No thrombus detected in the left atrial appendage. Small patent
foramen ovale present (confirmed by color Doppler flow across the septum). Positive bubble study consistent with [id number] shunting. )
Labs: Labs Reviewed by me
[2024-03-23] MEDS: ASPIRIN RECTAL (17:02)
[2024-03-23 17:17] LABS: Glucose - Point of Care 115 mg/dl (70-99)
--- NOTE | 2024-03-23 18:42 | EEGC.RPT ---
Continuous EEG Report
Recording
Start Date of Data Reviewed: 03/23/24
Done with Video Recording: Yes
Electrocardiogram: Unremarkable
Report
TECHNICAL REMARKS:��This is a technically satisfactory eighteen channel record employing 21 disc electrodes applied according to a measured international 10-20 electrode placement system.��There were no significant technical difficulties.��The study
was done on a [employer] System.
STUDY DURATION: 27 min 26 secs
MEDICATIONS: Lorazepam, Keppra
CLINICAL HISTORY: This is a 68-year-old man with left gaze preference and encephalopathy.. This study was requested to look for epileptiform activity.
REPORT: �At the onset of the EEG, the patient is in altered mental status. The background activity consists of 4-4.5 Hz, impersistent, posteriorly dominant, moderate amplitude, symmetric, and rhythmic activity. Continuous generalized, 2-3 Hz, 30-50
uV polymorphic delta activity was seen.� Stepwise intermittent photic stimulation did not induce additional abnormalities. Hyperventilation was not performed. No epileptiform activity was seen. Multiple muscle artifacts were present limited precise
characterization of the record.
�
IMPRESSION: �This is an abnormal EEG recorded in the patient in drowsy state due to a moderate to severe generalized slowing. This finding indicates diffuse cerebral dysfunction, nonspecific in terms of etiology.
[2024-03-23] MEDS: KEPPRA 500 MG IV (19:56)
[2024-03-24] VITALS (8 sets, daily range): BP systolic 116–186; BP diastolic 65–110; PULSE 81; BMI 23.0
[2024-03-24 00:08] LABS: Glucose - Point of Care 118 mg/dl (70-99)
[2024-03-24 00:30] LABS: Urine Albumin Trace (Neg - Trace); Urine Bilirubin Negative (Negative); Urine Character Clear (Clear); Urine Color Yellow; Urine Glucose Negative (Negative); Urine Ketone 3+ (Negative); Urine Leukocyte Negative (Negative); Urine Nitrite Negative (Negative); Urine Occult Blood Negative (Negative); Urine Urobilinogen Negative (Neg - 1+)
[2024-03-24 06:12] LABS: Glucose - Point of Care 105 mg/dl (70-99)
--- NOTE | 2024-03-24 08:35 | PTOTSP ---
Speech Language Pathology
Pt seen for cognitive-linguistic tx. Minimal alertness noted. Severe cognitive deficits noted. Eyes remained closed for duration of evaluation. When attempted to manually open, pt resisted this. No obvious blink to threat noted, but difficult
to fully assess. Pt with verbalization ('ow') in response to noxious stimulation in nailbeds of all 4 extremities. Pt stated 'ow' will almost all tactile stimulation. Also stated 'yes' x1 when asked if he was sleepy. No other responses to direct
questions noted. No auditory startle noted. Did not follow any commands.
Pt also seen for clinical bedside swallow evaluation. Set up suction in room and completed oral care with use of suction toothbrush. Pt somewhat resistant to this. Touched ice chip to lip with facial grimacing and turning head away in response.
Trialed 2ccs of thin water via pipetted straw, which pt accepted. Delayed initiation of oral management. Swallow was initiated with resultant weak cough response. Attempted puree with no response when presented to lips. Further P.O. trials
deferred.
Recommend:
(1) Strict NPO
(2) Oral care 4x/day with suctioning as needed
(3) Non oral meds
(4) Not appropriate for Aspiration Risk Hydration Protocol (ARHP) at this time
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
[2024-03-24] MEDS: ASPIRIN 300 MG RECTAL (09:10)
[2024-03-24 09:12] LABS: HDL Cholesterol 44 mg/dl; LDL Cholesterol, Calculated 68 mg/dl; Total Cholesterol 130 mg/dl (50-199); Triglyceride 91 mg/dl (10-149); Very Low Density Lipoprotein 18 mg/dl (0-30)
--- NOTE | 2024-03-24 10:11 | W.PN.NEURO.1 ---
Today's Communication / Plan
-
.
Subjective/Objective
Subjective Data
Date of Service: March 24, 2024
Neurology follow-up note
24-hour events: Blood pressure has normalized, afebrile. Continues to be encephalopathic
Brain MRI�no acute infarcts.
Routine EEG (03/23/2024)�severe generalized slowing
PMH: L MCA/L SCA stroke(11/2023), PE, PFO, HTN, DLP, DM, cognitive deficits
PSH: ILR(11/2023)
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
All:NKDA
ROS: Positive for chronic cognitive deficits, L HP. Negative for headache, change in vision or strength
General: In no acute distress.
Neuro:
Mental Status: Stuporous, moans to deep sternal rub. Does not follow requests.
Cranial Nerves: resists passive eye opening. No significant facial asymmetry
Motor: Increased motor tone bilaterally. Moves limbs with noxious stimuli within bed plane right more than left
Coordination: No tremors myoclonic movements
Gait: Nonambulatory
Assessment and Plan:
I. Encephalopathy (vascular, postictal?) clinically worse.
II. L MCA/L SCA stroke(11/2023, s/p TNK).
III. Intracranial atherosclerosis
IV. PFO
V. Encephalopathy(vascular, ictal?)
. Pulmonary embolism on Eliquis
-Continue Telemetry monitoring.
-Seizure and aspiration precautions.
-Denise check temperature
-Cautious lowering of BP by approximately 15 % during the first 24 hours is SBP >220 mmHg or diastolic blood pressure >120 mmHg;
-Restart antihypertensive medications during if BP>140/90 mmHg who are neurologically stable in 24 to 48 hours after stroke onset;
-ASA 81 mg PO or 300 mg AK until brain MRI is completed
-Ativan 2 mg IV once followed by Keppra load 1g IV
-Repeat EEG
-Cardiology consult�ILR interrogation
-Thrombophilia work up
-DVT prophylaxis.
I reviewed all radiology and labs along with past medical records pertinent to current medical problems, total time spent in patient care is 35 minutes.
�Thank you for allowing us to participate in the care of this patient. We will continue to follow. Please do not hesitate to contact us with any questions or concerns.
Objective Data
Vital Signs
Temp Pulse Resp BP Pulse Ox
36.4 C 85 22 118/65 94
03/24/24 07:27 03/24/24 07:27 03/24/24 07:27 03/24/24 07:27 03/24/24 07:27
Lab Results
03/23/24 12:14
03/23/24 12:14
PT 13.7 Sec (11.4-14.6) 03/23/24 12:14
INR 1.00 03/23/24 12:14
APTT 28.2 Sec (23.4-35.0) 03/23/24 12:14
Sodium 141 mmol/L (135-145) 03/23/24 12:14
Potassium 4.5 mmol/L (3.5-5.1) 03/23/24 12:14
BUN 13 mg/dl (9-20) 03/23/24 12:14
Glucose 133 mg/dl (70-99) H 03/23/24 12:14
Calcium 9.5 mg/dl (8.4-10.2) 03/23/24 12:14
LDL Cholesterol, Calc 68 mg/dl 03/24/24 07:29
Patient Allergies
No Known Allergies Allergy (Verified 03/23/24 13:14)
Vital Signs and Labs
-
Vital Signs and Labs:
Vital Signs
Temp Pulse Resp BP Pulse Ox
36.4 C 85 22 118/65 94
03/24/24 07:27 03/24/24 07:27 03/24/24 07:27 03/24/24 07:27 03/24/24 07:27
Lab Results
03/23/24 12:14
03/23/24 12:14
PT 13.7 Sec (11.4-14.6) 03/23/24 12:14
INR 1.00 03/23/24 12:14
APTT 28.2 Sec (23.4-35.0) 03/23/24 12:14
Sodium 141 mmol/L (135-145) 03/23/24 12:14
Potassium 4.5 mmol/L (3.5-5.1) 03/23/24 12:14
BUN 13 mg/dl (9-20) 03/23/24 12:14
Glucose 133 mg/dl (70-99) H 03/23/24 12:14
Calcium 9.5 mg/dl (8.4-10.2) 03/23/24 12:14
LDL Cholesterol, Calc 68 mg/dl 03/24/24 07:29
Medications
-
Medications:
Generic Name Dose Route Start Last Admin
Trade Name Freq PRN Reason Stop Dose Admin
Acetaminophen 650 mg 03/23/24 15:58
Acetaminophen 650 Mg Rectal Suppository RECTAL 04/20/24 15:57
Q4HPRN PRN
CAMPBELL, mild pain, or temp >100.4F
Acetaminophen 650 mg 03/23/24 15:58
Acetaminophen 325 Mg Tablet PO 04/20/24 15:57
Q4HPRN PRN
CAMPBELL, mild pain, or temp >100.4F
Aspirin 300 mg 03/23/24 15:58 03/24/24 09:10
Aspirin 300 Mg Rectal Suppository RECTAL 04/20/24 15:57 300 mg
DAILY IKER Administration
Dextrose 12.5 grams 03/23/24 15:58
Dextrose 50% (0.5 Grams/Ml) 50 Ml Syringe IV 04/20/24 15:57
[id number] PRN
hypoglycemia
Protocol
Glucagon 1 mg 03/23/24 15:58
Glucagon 1 Mg Vial IM 04/20/24 15:57
PRN PRN
hypoglycemia
Protocol
Insulin Aspart 0 units 03/23/24 16:30 03/24/24 08:09
Insulin Aspart Low Resistance 300 Units/3 Ml Pen.Injctr SC 04/20/24 16:29 Not Given
AC IKER
Protocol
Levetiracetam 500 mg 03/23/24 20:00 03/23/24 19:56
Levetiracetam (100 Mg/Ml) 500 Mg/5 Ml Vial IV 04/20/24 19:59 500 mg
Q12 IKER Administration
Sodium Chloride 0 flush 03/24/24 08:00
Sodium Chloride 0.9% (Flush) Syringe IV 04/21/24 07:59
PER PROTOCOL IKER
Home Medications
-
Home Medications
amlodipine 5 mg tablet 5 mg PO DAILY Blood Pressure 12/05/23
escitalopram oxalate 20 mg tablet (Lexapro) 20 mg PO DAILY Depression 12/05/23
lisinopril 20 mg tablet 20 mg PO DAILY Blood Pressure 12/05/23
metformin 500 mg tablet 500 mg PO BID Diabetes 12/05/23
apixaban 5 mg tablet (Eliquis) 5 mg PO BID #30 tabs 12/13/23
atorvastatin 40 mg tablet 40 mg PO QPM #30 tabs 12/13/23
coffee extract 100 mg-phosphatidyl serine 100 mg capsule (Neuriva Original) 1 cap PO DAILY Supplement 03/23/24
cyanocobalamin (vitamin B-12) 1,000 mcg tablet 1,000 mcg PO DAILY Supplement 03/23/24
wztenjxd-zbyemhsn-vvgm 8 mg-folic ac 400 mcg-vit K 10 mcg chew tablet (Centrum Chewables) 1 tab PO DAILY Supplement 03/23/24
[2024-03-24] MEDS: KEPPRA 500 MG IV ×2 (10:36→20:18)
[2024-03-24 11:57] LABS: Glycohemoglobin (HgbA1c) 6.2 % (4.0-5.6)
[2024-03-24 12:08] LABS: Glucose - Point of Care 109 mg/dl (70-99)
--- NOTE | 2024-03-24 13:42 | EEGC.RPT ---
Continuous EEG Report
Recording
Start Date of Data Reviewed: 03/24/24
Done with Video Recording: Yes
Electrocardiogram: Unremarkable
Report
TECHNICAL REMARKS:��This is a technically satisfactory eighteen channel record employing 21 disc electrodes applied according to a measured international 10-20 electrode placement system.��There were no significant technical difficulties.��The study
was done on a [employer] System.
STUDY DURATION: 28 min 30 secs
MEDICATIONS: Keppra
CLINICAL HISTORY: This is a 68-year-old man with left gaze preference and encephalopathy. This study was requested to look for epileptiform activity.
REPORT: �At the onset of the EEG, the patient is in altered mental status. The background activity consists of 3-3.5 Hz, impersistent, posteriorly dominant, moderate amplitude, symmetric, and rhythmic activity. Continuous generalized, 2-3 Hz, 30-50
uV polymorphic delta activity was seen with infrequent triphasic waves is present.� Stepwise intermittent photic stimulation did not induce additional abnormalities. Hyperventilation was not performed. No epileptiform activity was seen. Multiple
muscle artifacts were present limited precise characterization of the record.
�
IMPRESSION: �This is an abnormal EEG recorded in drowsy state due to a moderate to severe generalized slowing and triphasic waves. This finding indicates diffuse cerebral dysfunction, nonspecific in terms of etiology.
--- NOTE | 2024-03-24 13:57 | W.PN.HOSP.TC ---
Today's Communication/Plan
-
see note
Assessment / Plan
Assessment / Plan
MRI Brain
1. No MRI evidence for acute infarct.
2. Large chronic transcortical ischemic infarct in the right parietal lobe.
3. Moderate-sized chronic hemorrhagic infarct in the right occipital lobe.
4. Small chronic transcortical infarcts in the frontal lobes, left parietal lobe, and left occipital lobe.
5. Multiple small chronic infarcts in the cerebellar hemispheres.
6. Chronic bilateral thalamic infarcts (right larger than left).
7. Severe white matter microvascular ischemic disease in both cerebral hemispheres.
8. 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
9. Moderate to severe fluid in the mastoid air cells.
10. Mild paranasal sinus mucosal disease.
1. Acute toxic metabolic encephalopathy
Suspected seizure/postictal state
-Patient with history of previous CVA and there was concern of may be possible CVA inducing seizures
-Patient got an EEG
-CT head showed old stable encephalomalacia of right parietal/occipital lobe
-CTA head and neck done did not show any vascular occlusion
-Neurology evaluated and patient started on Keppra
-Seizure precaution
2. Ruled out new CVA
h/o previous CVA
History of dysphagia
-Neurological checks difficult as patient encephalopathic/sedated
-MRI brain without contrast ruled out any new infarct. Multiple old CVA, report as above
-Repeat speech evaluation will be required once patient mentation better
3. Bilateral pulmonary embolism
-Negative lower extremity deep venous thrombosis at the time of diagnosis of PE
-Diagnosed in December 06, patient was on Eliquis before admission. Unable to take oral medication as currently sedated/obtunded. Changed to Lovenox 1 Mg/KG dose twice daily for time.
4. Type II DM
-Maintain on insulin sliding scale
Essential HTN
HLD
DVT PPX - lovenox
DNR
Total time spent : 54 mins
Anticipated Discharge: 24 - 48 hours
Subjective/Interval History
-
Date of Service: March 24, 2024
Patient somnolent/minimally responsive
No reported seizure episodes after hospitalization
Patient currently getting EEG
Objective Data
-
Vital Signs:
Vital Signs
Temp Pulse Resp BP Pulse Ox
97.5 F 78 20 140/83 94
03/24/24 11:05 03/24/24 11:05 03/24/24 11:05 03/24/24 11:05 03/24/24 11:42
Review of Systems
-
Unable to obtain full review of systems at this time due to: Acuity
Physical Exam
-
General: Negative Respiratory Distress or Cachectic
HEENT: Negative Oxygen
Respiratory: Clear to Auscultation
Cardiac: Regular Rhythm and S1/S2; Negative Murmur
GI: Soft, Nontender and Nondistended
Neuro: Negative Awake or Alert
--- NOTE | 2024-03-24 14:38 | CM ---
Pt currently lethargic, unable to communicate w/ CM. CM spoke w/ spouse via phone to complete initial assessment.
Pt lives w/ spouse in a single story home- no steps. Ramp access into the home.
Per spouse pt is WC bound. Prev pt was able to ambulate independently w/ a walker but is now requiring assistance w/ this.
Pt is current w/ [facility] for PT/OT. Per spouse, home PT/OT have been working w/ pt slowly w/ ambulating w/ RW
Spouse stated pt was at [facility] for SNF for about a month- returned home the beginning of January
Spouse stated pt has a caregiver through [facility] 4 days/week for 4 hours. No other home support/services identified.
Address, point of contact and insurance verified
PCP: Dr. Gandhi
Pharmacy: [facility]
Pt's physical address- [facility] , [address]. Facesheet has mailing address only
PT/OT to follow and assess pt as hospital course progresses. No determined recommendations at this time
Plan: CM will cont to follow hospital course for d/c planning
[2024-03-24 18:09] LABS: Glucose - Point of Care 105 mg/dl (70-99)
[2024-03-24] MEDS: LOVENOX 70 MG SC (20:19)
[2024-03-25 01:12] LABS: Glucose - Point of Care 109 mg/dl (70-99)
[2024-03-25 03:49] VITALS: BP 141/78
[2024-03-25 05:43] LABS: Glucose - Point of Care 86 mg/dl (70-99)
[2024-03-25 07:29] LABS: Hematocrit 38.7 % (39.0-52.0); Hemoglobin 13.8 g/dL (13.0-18.0); Mean Corp Hgb Conc. 35.7 g/dL (33.0-37.0); Mean Corpuscular Hgb 30.1 pg (27.0-31.0); Mean Corpuscular Volume 84.5 fL (80.0-94.0); Mean Platelet Volume 9.6 fL (7.4-10.4); Platelet Count 248 10^3/uL (130-400); Red Blood Cell Count 4.58 10^6/uL (4.70-6.10); Red Cell Dist. Width 12.9 % (11.5-14.5); White Blood Cell Count 7.4 10^3/uL (4.8-10.8)
[2024-03-25 08:08] LABS: Blood Urea Nitrogen 15 mg/dl (9-20); Calcium 8.9 mg/dl (8.4-10.2); Carbon Dioxide 29 mmol/L (22-30); Chloride 100 mmol/L (98-107); Estimated Creatinine Clearance 117 ml/min; Glucose 88 mg/dl (70-99); Potassium 4.2 mmol/L (3.5-5.1); Sodium 138 mmol/L (135-145); eGFR > 60.00
[2024-03-25 08:12] LABS: Glucose - Point of Care 130 mg/dl (70-99)
[2024-03-25 08:37] VITALS: BP 151/74
[2024-03-25] MEDS: KEPPRA 500 MG IV (08:45)
[2024-03-25] MEDS: LOVENOX 70 MG SC ×2 (08:45→20:07)
[2024-03-25] MEDS: ASPIRIN 300 MG RECTAL (08:46)
[2024-03-25 11:55] VITALS: BP 168/97
[2024-03-25 13:24] LABS: Glucose - Point of Care 108 mg/dl (70-99)
--- NOTE | 2024-03-25 14:00 | W.PN.HOSP.TC ---
Today's Communication/Plan
-
Continue Keppra
Monitor for seizure precaution
Continue neurochecks
Assessment / Plan
Assessment / Plan
MRI Brain
1. No MRI evidence for acute infarct.
2. Large chronic transcortical ischemic infarct in the right parietal lobe.
3. Moderate-sized chronic hemorrhagic infarct in the right occipital lobe.
4. Small chronic transcortical infarcts in the frontal lobes, left parietal lobe, and left occipital lobe.
5. Multiple small chronic infarcts in the cerebellar hemispheres.
6. Chronic bilateral thalamic infarcts (right larger than left).
7. Severe white matter microvascular ischemic disease in both cerebral hemispheres.
8. 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
9. Moderate to severe fluid in the mastoid air cells.
10. Mild paranasal sinus mucosal disease.

1. Acute toxic metabolic encephalopathy - persisting
Suspected seizure/postictal state
-Patient with history of previous CVA and there was concern of may be possible CVA inducing seizures
-EEG report reviewed. no overt seizure activity.
-CT head showed old stable encephalomalacia of right parietal/occipital lobe
-CTA head and neck done did not show any vascular occlusion
-Neurology evaluated and patient started on Keppra
-Seizure precaution
-Patient continued to remain encephalopathic, speech therapy evaluation once patient mentation better. Patient currently NPO. Will need to consider alternate route of nutrition if patient mentation does not improve in next 24 hours
2. Ruled out new CVA
h/o previous CVA
History of dysphagia
-Neurological checks difficult as patient encephalopathic/sedated
-MRI brain without contrast ruled out any new infarct. Multiple old CVA, report as above
-Repeat speech evaluation will be required once patient mentation better
3. Bilateral pulmonary embolism
-Negative lower extremity deep venous thrombosis at the time of diagnosis of PE
-Diagnosed in December 06, patient was on Eliquis before admission. Unable to take oral medication as currently sedated/obtunded. Changed to Lovenox 1 Mg/KG dose twice daily for time.
4. Type II DM
-Maintain on insulin sliding scale
Essential HTN
HLD
DVT PPX - lovenox
DNR
Anticipated Discharge: 24 - 48 hours
Subjective/Interval History
-
Date of Service: March 25, 2024
remains minimally responsive
afebrile in night
no reported seizure episode
Objective Data
-
Labs:
Laboratory Results
03/25/24
07:06
WBC 7.4
Hgb 13.8
Hct 38.7 L
Plt Count 248
Sodium 138
Potassium 4.2
Chloride 100
Carbon Dioxide 29
BUN 15
Creatinine 0.6 L
Glucose 88
Calcium 8.9
Vital Signs:
Vital Signs
Temp Pulse Resp BP Pulse Ox
97.6 F 91 18 168/97 95
03/25/24 11:55 03/25/24 11:55 03/25/24 11:55 03/25/24 11:55 03/25/24 11:55
I&O
03/24/24 03/25/24 03/26/24
06:59 06:59 06:59
Intake Total 0 / 0
Balance 0 / 0
Review of Systems
-
Unable to obtain full review of systems at this time due to: Acuity
Physical Exam
-
General: Negative Respiratory Distress
HEENT: Negative Oxygen
Respiratory: Clear to Auscultation
Cardiac: Regular Rhythm and S1/S2; Negative Murmur
GI: Soft, Nontender and Nondistended
Neuro: Awake; Negative Alert or Oriented
[2024-03-25 15:55] VITALS: BP 137/72
--- NOTE | 2024-03-25 17:25 | W.PN.NEURO.1 ---
Today's Communication / Plan
-
.
Subjective/Objective
Subjective Data
Date of Service: March 25, 2024
Neurology follow-up note
24-hour events: Continues to be encephalopathic,
Brain MRI�no acute infarcts.
Routine EEG (03/23/2024)�severe generalized slowing
PMH: L MCA/L SCA stroke(11/2023), PE, PFO, HTN, DLP, DM, cognitive deficits
PSH: ILR(11/2023)
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
All:NKDA
ROS: Positive for chronic cognitive deficits, L HP. Negative for headache, change in vision or strength
General: In no acute distress.
Neuro:
Mental Status: Stuporous, moans to deep sternal rub. Does not follow requests.
Cranial Nerves: resists passive eye opening. No significant facial asymmetry
Motor: Increased motor tone bilaterally. Moves limbs with noxious stimuli within bed plane right more than left
Coordination: No tremors myoclonic movements
Gait: Nonambulatory
Assessment and Plan:
I. Encephalopathy (vascular, postictal?) clinically worse.
II. L MCA/L SCA stroke(11/2023, s/p TNK).
III. Intracranial atherosclerosis
IV. PFO
V. Encephalopathy(vascular, ictal?)
. Pulmonary embolism on Eliquis
-Continue Telemetry monitoring.
-Continue ASA 81 mg PO or 300 mg WI
-Increase Keppra to 750 mg twice daily
-Repeat EEG if no clinical improvement
-Cardiology consult�ILR interrogation
-DVT prophylaxis.
I reviewed all radiology and labs along with past medical records pertinent to current medical problems, total time spent in patient care is 35 minutes.
�Thank you for allowing us to participate in the care of this patient. We will continue to follow. Please do not hesitate to contact us with any questions or concerns
Objective Data
Vital Signs
Temp Pulse Resp BP Pulse Ox
36.6 C 89 18 137/72 95
03/25/24 15:55 03/25/24 15:55 03/25/24 15:55 03/25/24 15:55 03/25/24 15:55
Lab Results
03/25/24 07:06
03/25/24 07:06
PT 13.7 Sec (11.4-14.6) 03/23/24 12:14
INR 1.00 03/23/24 12:14
APTT 28.2 Sec (23.4-35.0) 03/23/24 12:14
Sodium 138 mmol/L (135-145) 03/25/24 07:06
Potassium 4.2 mmol/L (3.5-5.1) 03/25/24 07:06
BUN 15 mg/dl (9-20) 03/25/24 07:06
Glucose 88 mg/dl (70-99) 03/25/24 07:06
Calcium 8.9 mg/dl (8.4-10.2) 03/25/24 07:06
LDL Cholesterol, Calc 68 mg/dl 03/24/24 07:29
Patient Allergies
No Known Allergies Allergy (Verified 03/23/24 13:14)
Vital Signs and Labs
-
Vital Signs and Labs:
Vital Signs
Temp Pulse Resp BP Pulse Ox
37.2 C 84 18 118/67 95
03/26/24 07:55 03/26/24 07:55 03/26/24 07:55 03/26/24 07:55 03/26/24 07:55
Lab Results
03/26/24 06:28
03/26/24 06:28
PT 13.7 Sec (11.4-14.6) 03/23/24 12:14
INR 1.00 03/23/24 12:14
APTT 28.2 Sec (23.4-35.0) 03/23/24 12:14
Sodium 139 mmol/L (135-145) 03/26/24 06:28
Potassium 3.9 mmol/L (3.5-5.1) 03/26/24 06:28
BUN 16 mg/dl (9-20) 03/26/24 06:28
Glucose 97 mg/dl (70-99) 03/26/24 06:28
Calcium 8.8 mg/dl (8.4-10.2) 03/26/24 06:28
LDL Cholesterol, Calc 68 mg/dl 03/24/24 07:29
Medications
-
Medications:
Generic Name Dose Route Start Last Admin
Trade Name Freq PRN Reason Stop Dose Admin
Acetaminophen 650 mg 03/23/24 15:58
Acetaminophen 650 Mg Rectal Suppository RECTAL 04/20/24 15:57
Q4HPRN PRN
CAMPBELL, mild pain, or temp >100.4F
Acetaminophen 650 mg 03/23/24 15:58
Acetaminophen 325 Mg Tablet PO 04/20/24 15:57
Q4HPRN PRN
CAMPBELL, mild pain, or temp >100.4F
Dextrose 12.5 grams 03/23/24 15:58
Dextrose 50% (0.5 Grams/Ml) 50 Ml Syringe IV 04/20/24 15:57
[id number] PRN
hypoglycemia
Protocol
Enoxaparin Sodium 70 mg 03/24/24 20:00 03/26/24 07:30
Enoxaparin Sodium 80 Mg/0.8 Ml Syringe SC 04/21/24 19:59 70 mg
Q12H IKER Administration
Glucagon 1 mg 03/23/24 15:58
Glucagon 1 Mg Vial IM 04/20/24 15:57
PRN PRN
hypoglycemia
Protocol
Hydralazine HCl 10 mg 03/25/24 13:56 03/26/24 03:00
Hydralazine 20 Mg/Ml Vial IV 04/22/24 13:55 10 mg
Q4HPRN PRN Administration
FOR SBP > 160 or DBP > 110
Insulin Aspart 0 units 03/24/24 12:00 03/26/24 06:25
Insulin Aspart Low Resistance 300 Units/3 Ml Pen.Injctr SC 04/21/24 11:59 Not Given
Q6 IKER
Protocol
Levetiracetam 750 mg 03/25/24 17:26 03/26/24 07:29
Levetiracetam (100 Mg/Ml) 500 Mg/5 Ml Vial IV 04/20/24 19:59 750 mg
Q12 IKER Administration
Sodium Chloride 0 flush 03/24/24 08:00
Sodium Chloride 0.9% (Flush) Syringe IV 04/21/24 07:59
PER PROTOCOL IKER
Home Medications
-
Home Medications
amlodipine 5 mg tablet 5 mg PO DAILY Blood Pressure 12/05/23
escitalopram oxalate 20 mg tablet (Lexapro) 20 mg PO DAILY Depression 12/05/23
lisinopril 20 mg tablet 20 mg PO DAILY Blood Pressure 12/05/23
metformin 500 mg tablet 500 mg PO BID Diabetes 12/05/23
apixaban 5 mg tablet (Eliquis) 5 mg PO BID #30 tabs 12/13/23
atorvastatin 40 mg tablet 40 mg PO QPM #30 tabs 12/13/23
coffee extract 100 mg-phosphatidyl serine 100 mg capsule (Neuriva Original) 1 cap PO DAILY Supplement 03/23/24
cyanocobalamin (vitamin B-12) 1,000 mcg tablet 1,000 mcg PO DAILY Supplement 03/23/24
amaqznwx-nuiojllm-qmnn 8 mg-folic ac 400 mcg-vit K 10 mcg chew tablet (Centrum Chewables) 1 tab PO DAILY Supplement 03/23/24
[2024-03-25 17:32] LABS: Glucose - Point of Care 95 mg/dl (70-99)
[2024-03-25 19:49] VITALS: BP 155/81
[2024-03-25] MEDS: KEPPRA 750 MG IV (20:08)
[2024-03-25 23:47] VITALS: BP 165/91
[2024-03-26 01:18] LABS: Glucose - Point of Care 110 mg/dl (70-99)
[2024-03-26] MEDS: APRESOLINE 10 MG IV (03:00)
[2024-03-26 03:23] VITALS: BP 162/93
[2024-03-26 04:34] VITALS: BP 119/68
[2024-03-26 06:22] LABS: Glucose - Point of Care 99 mg/dl (70-99)
[2024-03-26 06:37] LABS: Hematocrit 38.8 % (39.0-52.0); Hemoglobin 13.8 g/dL (13.0-18.0); Mean Corp Hgb Conc. 35.6 g/dL (33.0-37.0); Mean Corpuscular Hgb 29.8 pg (27.0-31.0); Mean Corpuscular Volume 83.8 fL (80.0-94.0); Mean Platelet Volume 9.4 fL (7.4-10.4); Platelet Count 290 10^3/uL (130-400); Red Blood Cell Count 4.63 10^6/uL (4.70-6.10); Red Cell Dist. Width 12.9 % (11.5-14.5); White Blood Cell Count 9.3 10^3/uL (4.8-10.8)
[2024-03-26] MEDS: KEPPRA 750 MG IV ×2 (07:29→19:20)
[2024-03-26] MEDS: LOVENOX 70 MG SC ×2 (07:30→19:19)
[2024-03-26 07:55] VITALS: BP 118/67
[2024-03-26 08:06] LABS: Blood Urea Nitrogen 16 mg/dl (9-20); Calcium 8.8 mg/dl (8.4-10.2); Carbon Dioxide 21 mmol/L (22-30); Chloride 100 mmol/L (98-107); Estimated Creatinine Clearance 117 ml/min; Glucose 97 mg/dl (70-99); Potassium 3.9 mmol/L (3.5-5.1); Sodium 139 mmol/L (135-145); eGFR > 60.00
--- NOTE | 2024-03-26 09:44 | W.PN.NEURO.1 ---
Today's Communication / Plan
-
.
Subjective/Objective
Subjective Data
Date of Service: March 26, 2024
Neurology follow-up note
24-hour events: Blood pressure has improved as well as encephalopathy. Afebrile. Blood work is unremarkable.
Brain MRI�no acute infarcts.
Routine EEG (03/23/2024)�severe generalized slowing
PMH: L MCA/L SCA stroke(11/2023), PE, PFO, HTN, DLP, DM, cognitive deficits
PSH: ILR(11/2023)
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
All:NKDA
ROS: Positive for chronic cognitive deficits, L HP. Negative for headache, change in vision or strength
General: In no acute distress.
Mental Status: Awake, attends to examiner. Oriented to name, not to age, year. Increased processing time. Follows simple requests intermittently. Nonfluent.
Cranial Nerves: Orthophoric primary gaze. Horizontal extraocular movement intact. Blink to threat left greater than right. No significant facial asymmetry
Motor: Increased motor tone bilaterally. Moves limbs with noxious stimuli within bed plane right more than left
Coordination: No tremors myoclonic movements
Gait: Nonambulatory
Assessment and Plan:
I. Encephalopathy (vascular, postictal) with focal, likely symptomatic seizure. Clinically improved.
II. L MCA/L SCA stroke(11/2023, s/p TNK).
III. Intracranial atherosclerosis
IV. PFO
V. Pulmonary embolism on Eliquis
-Continue Telemetry monitoring.
-Seizure precautions
-Continue ASA 81 mg daily
-Continue Keppra 750 mg twice daily
-Cardiology consult�ILR interrogation
-Check homocysteine, lactic acid
-PT
-DVT prophylaxis.
-Please recall neurology services any questions or concerns.
I reviewed all radiology and labs along with past medical records pertinent to current medical problems, total time spent in patient care is 35 minutes.
Objective Data
Vital Signs
Temp Pulse Resp BP Pulse Ox
37.2 C 84 18 118/67 95
03/26/24 07:55 03/26/24 07:55 03/26/24 07:55 03/26/24 07:55 03/26/24 07:55
Lab Results
03/26/24 06:28
03/26/24 06:28
PT 13.7 Sec (11.4-14.6) 03/23/24 12:14
INR 1.00 03/23/24 12:14
APTT 28.2 Sec (23.4-35.0) 03/23/24 12:14
Sodium 139 mmol/L (135-145) 03/26/24 06:28
Potassium 3.9 mmol/L (3.5-5.1) 03/26/24 06:28
BUN 16 mg/dl (9-20) 03/26/24 06:28
Glucose 97 mg/dl (70-99) 03/26/24 06:28
Calcium 8.8 mg/dl (8.4-10.2) 03/26/24 06:28
LDL Cholesterol, Calc 68 mg/dl 03/24/24 07:29
Patient Allergies
No Known Allergies Allergy (Verified 03/23/24 13:14)
Vital Signs and Labs
-
Vital Signs and Labs:
Vital Signs
Temp Pulse Resp BP Pulse Ox
37.2 C 84 18 118/67 95
03/26/24 07:55 03/26/24 07:55 03/26/24 07:55 03/26/24 07:55 03/26/24 07:55
Lab Results
03/26/24 06:28
03/26/24 06:28
PT 13.7 Sec (11.4-14.6) 03/23/24 12:14
INR 1.00 03/23/24 12:14
APTT 28.2 Sec (23.4-35.0) 03/23/24 12:14
Sodium 139 mmol/L (135-145) 03/26/24 06:28
Potassium 3.9 mmol/L (3.5-5.1) 03/26/24 06:28
BUN 16 mg/dl (9-20) 03/26/24 06:28
Glucose 97 mg/dl (70-99) 03/26/24 06:28
Calcium 8.8 mg/dl (8.4-10.2) 03/26/24 06:28
LDL Cholesterol, Calc 68 mg/dl 03/24/24 07:29
Medications
-
Medications:
Generic Name Dose Route Start Last Admin
Trade Name Freq PRN Reason Stop Dose Admin
Acetaminophen 650 mg 03/23/24 15:58
Acetaminophen 650 Mg Rectal Suppository RECTAL 04/20/24 15:57
Q4HPRN PRN
CAMPBELL, mild pain, or temp >100.4F
Acetaminophen 650 mg 03/23/24 15:58
Acetaminophen 325 Mg Tablet PO 04/20/24 15:57
Q4HPRN PRN
CAMPBELL, mild pain, or temp >100.4F
Dextrose 12.5 grams 03/23/24 15:58
Dextrose 50% (0.5 Grams/Ml) 50 Ml Syringe IV 04/20/24 15:57
[id number] PRN
hypoglycemia
Protocol
Enoxaparin Sodium 70 mg 03/24/24 20:00 03/26/24 07:30
Enoxaparin Sodium 80 Mg/0.8 Ml Syringe SC 04/21/24 19:59 70 mg
Q12H IKER Administration
Glucagon 1 mg 03/23/24 15:58
Glucagon 1 Mg Vial IM 04/20/24 15:57
PRN PRN
hypoglycemia
Protocol
Hydralazine HCl 10 mg 03/25/24 13:56 03/26/24 03:00
Hydralazine 20 Mg/Ml Vial IV 04/22/24 13:55 10 mg
Q4HPRN PRN Administration
FOR SBP > 160 or DBP > 110
Insulin Aspart 0 units 03/24/24 12:00 03/26/24 06:25
Insulin Aspart Low Resistance 300 Units/3 Ml Pen.Injctr SC 04/21/24 11:59 Not Given
Q6 IKER
Protocol
Levetiracetam 750 mg 03/25/24 17:26 03/26/24 07:29
Levetiracetam (100 Mg/Ml) 500 Mg/5 Ml Vial IV 04/20/24 19:59 750 mg
Q12 IKER Administration
Sodium Chloride 0 flush 03/24/24 08:00
Sodium Chloride 0.9% (Flush) Syringe IV 04/21/24 07:59
PER PROTOCOL IKER
Home Medications
-
Home Medications
amlodipine 5 mg tablet 5 mg PO DAILY Blood Pressure 12/05/23
escitalopram oxalate 20 mg tablet (Lexapro) 20 mg PO DAILY Depression 12/05/23
lisinopril 20 mg tablet 20 mg PO DAILY Blood Pressure 12/05/23
metformin 500 mg tablet 500 mg PO BID Diabetes 12/05/23
apixaban 5 mg tablet (Eliquis) 5 mg PO BID #30 tabs 12/13/23
atorvastatin 40 mg tablet 40 mg PO QPM #30 tabs 12/13/23
coffee extract 100 mg-phosphatidyl serine 100 mg capsule (Neuriva Original) 1 cap PO DAILY Supplement 03/23/24
cyanocobalamin (vitamin B-12) 1,000 mcg tablet 1,000 mcg PO DAILY Supplement 03/23/24
[id number]-[id number]-miby 8 mg-folic ac 400 mcg-vit K 10 mcg chew tablet (Centrum Chewables) 1 tab PO DAILY Supplement 03/23/24
[2024-03-26] MEDS: D5/0.9% SODIUM CHLORIDE 1000 IV (11:16)
[2024-03-26 11:29] LABS: Glucose - Point of Care 102 mg/dl (70-99)
[2024-03-26 11:30] LABS: Lactic Acid 0.9 mmol/L (0.7-2.0)
[2024-03-26 11:43] VITALS: BP 134/83
--- NOTE | 2024-03-26 13:01 | W.PN.HOSP.TC ---
Today's Communication/Plan
-
start d5/ns
maintain on keppra
repeat ST eval
continue supportive measures
Assessment / Plan
Assessment / Plan
MRI Brain
1. No MRI evidence for acute infarct.
2. Large chronic transcortical ischemic infarct in the right parietal lobe.
3. Moderate-sized chronic hemorrhagic infarct in the right occipital lobe.
4. Small chronic transcortical infarcts in the frontal lobes, left parietal lobe, and left occipital lobe.
5. Multiple small chronic infarcts in the cerebellar hemispheres.
6. Chronic bilateral thalamic infarcts (right larger than left).
7. Severe white matter microvascular ischemic disease in both cerebral hemispheres.
8. 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
9. Moderate to severe fluid in the mastoid air cells.
10. Mild paranasal sinus mucosal disease.

1. Acute toxic metabolic encephalopathy - persisting
Suspected seizure/postictal state
-Patient with history of previous CVA and there was concern of may be possible CVA inducing seizures
-EEG report reviewed. no overt seizure activity.
-CT head showed old stable encephalomalacia of right parietal/occipital lobe
-CTA head and neck done did not show any vascular occlusion
-Neurology evaluated and patient started on Keppra
-Seizure precaution
-Patient mentation is better today and following some commands although no meaningful conversation. Maintain on slow D5 NS. If no improvement in next 24 to 48 hours will require dobhoff support.
2. Ruled out new CVA
h/o previous CVA
History of dysphagia
-Neurological checks difficult as patient encephalopathic/sedated
-MRI brain without contrast ruled out any new infarct. Multiple old CVA, report as above
-Repeat speech evaluation will be required once patient mentation better
3. Bilateral pulmonary embolism
-Negative lower extremity deep venous thrombosis at the time of diagnosis of PE
-Diagnosed in December 06, patient was on Eliquis before admission. Unable to take oral medication as currently sedated/obtunded. Changed to Lovenox 1 Mg/KG dose twice daily for time.
4. Type II DM
-Maintain on insulin sliding scale
Essential HTN
HLD
DVT PPX - lovenox
DNR
Anticipated Discharge: 24 - 48 hours
Subjective/Interval History
-
Date of Service: March 26, 2024
Mentation little bit better although not completely back to normal
Following some commands intermittently
Objective Data
-
Labs:
Laboratory Results
03/26/24
06:28
WBC 9.3
Hgb 13.8
Hct 38.8 L
Plt Count 290
Sodium 139
Potassium 3.9
Chloride 100
Carbon Dioxide 21 L
BUN 16
Creatinine 0.6 L
Glucose 97
Calcium 8.8
Vital Signs:
Vital Signs
Temp Pulse Resp BP Pulse Ox
98.5 F 82 18 134/83 93
03/26/24 11:43 03/26/24 11:43 03/26/24 11:43 03/26/24 11:43 03/26/24 11:43
I&O
03/25/24 03/26/24 03/27/24
06:59 06:59 06:59
Intake Total 0 / 0 0 / 0
Balance 0 / 0 0 / 0
Review of Systems
-
Unable to obtain full review of systems at this time due to: Acuity
Physical Exam
-
General: Appears Chronically Ill; Negative Appears in Distress
HEENT: Negative Oxygen
Respiratory: Clear to Auscultation
Cardiac: Regular Rhythm and S1/S2; Negative Murmur
GI: Soft, Nontender and Nondistended
Neuro: Awake; Negative Oriented
Psych: Calm
[2024-03-26 15:57] VITALS: BP 145/84
[2024-03-26 17:50] LABS: Glucose - Point of Care 113 mg/dl (70-99)
[2024-03-26 23:44] VITALS: BP 143/85
[2024-03-26 23:55] LABS: Glucose - Point of Care 127 mg/dl (70-99)
[2024-03-27 06:02] LABS: Glucose - Point of Care 95 mg/dl (70-99)
[2024-03-27 07:44] VITALS: BP 136/70
[2024-03-27 07:58] LABS: Hematocrit 37.4 % (39.0-52.0); Hemoglobin 13.4 g/dL (13.0-18.0); Mean Corp Hgb Conc. 35.8 g/dL (33.0-37.0); Mean Corpuscular Hgb 30.5 pg (27.0-31.0); Platelet Count 265 10^3/uL (130-400); White Blood Cell Count 7.1 10^3/uL (4.8-10.8)
[2024-03-27 08:14] LABS: Blood Urea Nitrogen 16 mg/dl (9-20); Calcium 8.9 mg/dl (8.4-10.2); Carbon Dioxide 27 mmol/L (22-30); Chloride 103 mmol/L (98-107); Estimated Creatinine Clearance 117 ml/min; Glucose 94 mg/dl (70-99); Potassium 3.7 mmol/L (3.5-5.1); Sodium 139 mmol/L (135-145); eGFR > 60.00
[2024-03-27] MEDS: KEPPRA 750 MG IV ×2 (08:54→20:35)
[2024-03-27] MEDS: LOVENOX 70 MG SC ×2 (08:55→20:37)
--- NOTE | 2024-03-27 09:20 | W.PN.HOSP.TC ---
Today's Communication/Plan
-
AED. Anticoagulation. Neurology reeval. Discharge planning
Assessment / Plan
Assessment / Plan
Physical exam:
General: Acute on chronically ill
HEENT: Normocephalic, Atraumatic and Moist Mucous Membranes
Respiratory: Clear to Auscultation; Negative Wheezes, Rales or Rhonchi
Cardiac: Regular Rhythm and S1/S2
GI: Soft, Nontender and Nondistended
Musculoskeletal: No Clubbing, No Cyanosis and No Edema
Neuro: Awake, Alert and Disoriented, no neurodeficits
Psych: Calm
A/P:
MRI Brain
1. No MRI evidence for acute infarct.
2. Large chronic transcortical ischemic infarct in the right parietal lobe.
3. Moderate-sized chronic hemorrhagic infarct in the right occipital lobe.
4. Small chronic transcortical infarcts in the frontal lobes, left parietal lobe, and left occipital lobe.
5. Multiple small chronic infarcts in the cerebellar hemispheres.
6. Chronic bilateral thalamic infarcts (right larger than left).
7. Severe white matter microvascular ischemic disease in both cerebral hemispheres.
8. 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
9. Moderate to severe fluid in the mastoid air cells.
10. Mild paranasal sinus mucosal disease.

1. Acute toxic metabolic encephalopathy - persisting
Suspected seizure/postictal state
-Patient with history of previous CVA and there was concern of may be possible CVA inducing seizures
-EEG report reviewed. no overt seizure activity.
-CT head showed old stable encephalomalacia of right parietal/occipital lobe
-CTA head and neck done did not show any vascular occlusion
-Neurology evaluated and patient started on Keppra
-Seizure precaution
-Cardiology consulted & interrogated ILR and no evidence of A-fib.
-Patient mentation is better today and following some commands although no meaningful conversation.
-Patient did well with speech therapy VSE so he was restarted on IDDSI level 4 diet by speech therapy recommendation
2. Ruled out new CVA
h/o previous CVA
History of dysphagia
-Neurological checks difficult as patient encephalopathic/sedated
-MRI brain without contrast ruled out any new infarct. Multiple old CVA, report as above
-Repeat speech evaluation will be required once patient mentation better
3. Bilateral pulmonary embolism
-Negative lower extremity deep venous thrombosis at the time of diagnosis of PE
-Diagnosed in December 06, patient was on Eliquis before admission. Unable to take oral medication as currently sedated/obtunded. Changed to Lovenox 1 Mg/KG dose twice daily for time. Might be able to switch to oral later today or in am
4. Type II DM
-Maintain on insulin sliding scale
Essential HTN
HLD
DVT PPX - lovenox
DNR
Anticipated Discharge: 24 - 48 hours
Subjective/Interval History
-
Date of Service: March 27, 2024
Patient alert but disoriented today. Afebrile.
Objective Data
-
Labs:
Laboratory Results
03/27/24
06:31
WBC 7.1
Hgb 13.4
Hct 37.4 L
Plt Count 265
Sodium 139
Potassium 3.7
Chloride 103
Carbon Dioxide 27
BUN 16
Creatinine 0.6 L
Glucose 94
Calcium 8.9
Vital Signs:
Vital Signs
Temp Pulse Resp BP Pulse Ox
97.6 F 60 18 136/70 96
03/27/24 07:44 03/27/24 07:44 03/27/24 07:44 03/27/24 07:44 03/27/24 07:44
I&O
03/26/24 03/27/24 03/28/24
06:59 06:59 06:59
Intake Total 0 / 0 0 / 0
Balance 0 / 0 0 / 0
--- NOTE | 2024-03-27 09:55 | PTOTSP ---
Speech Therapy
Overall, patient is at elevated risk for aspiration given motor planning deficits and mild oral weakness but vast majority of pureed and thin liquid trials tolerated. oral diet should be tolerated given the above findings, improved level of arousal
and functional respiratory status.
Recommend:
1. Resume baseline diet of Level 4/0 (puree/thin liquids)
2. Meds crushed in applesauce.
3. Supervision and assist with feeding.
4. Slow rate and single sips of liquid. Straw okay.
5. Aspiration precautions.
6. ST will follow to ensure diet tolerance.
7. Fairly recent CVA (4 months) may indicate elevated rehab potential, therefore recommend follow up ST at discharge to assess/treat for possible diet advancement.
[2024-03-27 12:11] LABS: Glucose - Point of Care 95 mg/dl (70-99)
--- NOTE | 2024-03-27 13:57 | CM ---
Chart reviewed for d/c planning. PT/OT currently recommending skilled rehab. Discussed w/ pt's spouse who is agreeable to rehab. Spouse identified [facility] as preferred facility. CM encouraged additional options in case there is no availability
at [facility], spouse is opposed to this at this time and would to explore [facility] first before having to explore additional facilities. Spouse stated if [facility] does not have any availability closer to pt's d/c, she then will explore other
facilities. Referral completed in [facility], awaiting determination
Pt will need insurance auth
Plan: SNF; pending accepting facility and auth. Spouse is preferring [facility]. CM will explore other facilities if needed
[2024-03-27 15:37] VITALS: BP 149/85
[2024-03-27 17:39] LABS: Glucose - Point of Care 83 mg/dl (70-99)
[2024-03-27] MEDS: NOVOLOG FLEXPEN-LOW RESISTANCE SC (17:39)
[2024-03-27 20:33] LABS: Homocysteine 6 umol/L (0-15)
[2024-03-27 21:52] LABS: Glucose - Point of Care 155 mg/dl (70-99)
[2024-03-27 23:30] VITALS: BP 145/79
[2024-03-28 07:42] LABS: Glucose - Point of Care 96 mg/dl (70-99)
[2024-03-28 07:55] VITALS: BP 152/82
--- NOTE | 2024-03-28 08:25 | W.PN.HOSP.TC ---
Today's Communication/Plan
-
AED. Anticoagulant.
Assessment / Plan
Assessment / Plan
Physical exam:
General: Acute on chronically ill
HEENT: Normocephalic, Atraumatic and Moist Mucous Membranes
Respiratory: Clear to Auscultation; Negative Wheezes, Rales or Rhonchi
Cardiac: Regular Rhythm and S1/S2
GI: Soft, Nontender and Nondistended
Musculoskeletal: No Clubbing, No Cyanosis and No Edema
Neuro: Awake, Alert and Disoriented, no neurodeficits
Psych: Calm
A/P:
MRI Brain
1. No MRI evidence for acute infarct.
2. Large chronic transcortical ischemic infarct in the right parietal lobe.
3. Moderate-sized chronic hemorrhagic infarct in the right occipital lobe.
4. Small chronic transcortical infarcts in the frontal lobes, left parietal lobe, and left occipital lobe.
5. Multiple small chronic infarcts in the cerebellar hemispheres.
6. Chronic bilateral thalamic infarcts (right larger than left).
7. Severe white matter microvascular ischemic disease in both cerebral hemispheres.
8. 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
9. Moderate to severe fluid in the mastoid air cells.
10. Mild paranasal sinus mucosal disease.

1. Acute toxic metabolic encephalopathy - persisting
Suspected seizure/postictal state
-Patient with history of previous CVA and there was concern of may be possible CVA inducing seizures
-EEG report reviewed. no overt seizure activity.
-CT head showed old stable encephalomalacia of right parietal/occipital lobe
-CTA head and neck done did not show any vascular occlusion
-Neurology evaluated and patient started on Keppra
-Seizure precaution
-Cardiology consulted & interrogated ILR and no evidence of A-fib.
-Patient mentation is better today and following some commands although no meaningful conversation.
-Patient did well with speech therapy VSE so he was restarted on IDDSI level 4 diet by speech therapy recommendation--> will switch his medications to oral today
2. Ruled out new CVA
h/o previous CVA
History of dysphagia
-Neurological checks difficult as patient encephalopathic/sedated
-MRI brain without contrast ruled out any new infarct. Multiple old CVA, report as above
-Repeat speech evaluation will be required once patient mentation better
3. Bilateral pulmonary embolism
-Negative lower extremity deep venous thrombosis at the time of diagnosis of PE
-Diagnosed in December 06, patient was on Eliquis before admission. Unable to take oral medication as currently sedated/obtunded. Changed to Lovenox 1 Mg/KG dose twice daily for time. Might be able to switch to oral later today
4. Type II DM
-Maintain on insulin sliding scale
Essential HTN
HLD
DVT PPX - lovenox
DNR
Anticipated Discharge: 24 - 48 hours
Subjective/Interval History
-
Date of Service: March 28, 2024
Patient continues to be more alert and more coherent. Generalized weakness present. Has been able to tolerate diet.
Objective Data
-
Vital Signs:
Vital Signs
Temp Pulse Resp BP Pulse Ox
98.1 F 66 16 145/79 94
03/27/24 23:30 03/27/24 23:30 03/27/24 23:30 03/27/24 23:30 03/27/24 23:30
I&O
03/27/24 03/28/24 03/29/24
06:59 06:59 06:59
Intake Total 0 / 0 120 / 120
Output Total 200 / 200
Balance 0 / 0 -80 / -80
[2024-03-28] MEDS: NOVOLOG FLEXPEN-LOW RESISTANCE SC ×2 (09:20→16:13)
[2024-03-28] MEDS: KEPPRA 750 MG IV (09:21)
[2024-03-28] MEDS: LOVENOX 70 MG SC (09:21)
--- NOTE | 2024-03-28 11:54 | CM ---
Spoke w/ pt's spouse regarding d/c plan. CM informed spouse that [facility] does not have any available beds at this time. Spouse agreeable to explore facilities in [place] and [facility]. Additional referrals sent in [facility]. Per
spouse, she would still like to consider [facility] closer to pt's d/c if they were to have an available bed.
Pt will need insurance auth
Plan: SNF; pending accepting facility and insurance auth
[2024-03-28 12:49] LABS: Glucose - Point of Care 168 mg/dl (70-99)
[2024-03-28] MEDS: NOVOLOG FLEXPEN-LOW RESISTANCE 1 UNITS SC (13:35)
[2024-03-28 15:34] VITALS: BP 145/86
[2024-03-28 16:10] LABS: Glucose - Point of Care 111 mg/dl (70-99)
[2024-03-28] MEDS: ELIQUIS 5 MG PO (19:49)
[2024-03-28] MEDS: KEPPRA 750 MG PO (19:50)
[2024-03-28 21:46] LABS: Glucose - Point of Care 156 mg/dl (70-99)
[2024-03-28 23:56] VITALS: BP 131/89
[2024-03-29 07:09] VITALS: BP 145/73
[2024-03-29 07:10] LABS: Hematocrit 36.2 % (39.0-52.0); Hemoglobin 13.2 g/dL (13.0-18.0); Mean Corp Hgb Conc. 36.5 g/dL (33.0-37.0); Mean Corpuscular Hgb 30.3 pg (27.0-31.0); Mean Corpuscular Volume 83.2 fL (80.0-94.0); Mean Platelet Volume 9.5 fL (7.4-10.4); Platelet Count 231 10^3/uL (130-400); Red Blood Cell Count 4.35 10^6/uL (4.70-6.10); Red Cell Dist. Width 13.2 % (11.5-14.5); White Blood Cell Count 6.2 10^3/uL (4.8-10.8)
[2024-03-29 07:36] LABS: Blood Urea Nitrogen 15 mg/dl (9-20); Calcium 8.7 mg/dl (8.4-10.2); Carbon Dioxide 30 mmol/L (22-30); Chloride 102 mmol/L (98-107); Estimated Creatinine Clearance 117 ml/min; Glucose 115 mg/dl (70-99); Potassium 3.5 mmol/L (3.5-5.1); Sodium 139 mmol/L (135-145); eGFR > 60.00
[2024-03-29 08:20] LABS: Glucose - Point of Care 108 mg/dl (70-99)
[2024-03-29] MEDS: NOVOLOG FLEXPEN-LOW RESISTANCE SC (08:28)
[2024-03-29] MEDS: ELIQUIS 5 MG PO ×2 (09:12→20:08)
[2024-03-29] MEDS: KEPPRA 750 MG PO ×2 (09:12→20:08)
[2024-03-29] MEDS: DESENEX/MITRAZOL/ZEASORB 1 APPLIC TOPICAL ×2 (09:13→20:08)
--- NOTE | 2024-03-29 09:47 | W.PN.HOSP.TC ---
Today's Communication/Plan
-
AED. Discharge planning
Assessment / Plan
Assessment / Plan
Physical exam:
General: Acute on chronically ill
HEENT: Normocephalic, Atraumatic and Moist Mucous Membranes
Respiratory: Clear to Auscultation; Negative Wheezes, Rales or Rhonchi
Cardiac: Regular Rhythm and S1/S2
GI: Soft, Nontender and Nondistended
Musculoskeletal: No Clubbing, No Cyanosis and No Edema
Neuro: Awake, Alert and Disoriented, no neurodeficits
Psych: Calm
A/P:
MRI Brain
1. No MRI evidence for acute infarct.
2. Large chronic transcortical ischemic infarct in the right parietal lobe.
3. Moderate-sized chronic hemorrhagic infarct in the right occipital lobe.
4. Small chronic transcortical infarcts in the frontal lobes, left parietal lobe, and left occipital lobe.
5. Multiple small chronic infarcts in the cerebellar hemispheres.
6. Chronic bilateral thalamic infarcts (right larger than left).
7. Severe white matter microvascular ischemic disease in both cerebral hemispheres.
8. 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
9. Moderate to severe fluid in the mastoid air cells.
10. Mild paranasal sinus mucosal disease.

1. Acute toxic metabolic encephalopathy - persisting
Suspected seizure/postictal state
-Patient with history of previous CVA and there was concern of may be possible CVA inducing seizures
-EEG report reviewed. no overt seizure activity.
-CT head showed old stable encephalomalacia of right parietal/occipital lobe
-CTA head and neck done did not show any vascular occlusion
-Neurology evaluated and patient started on Keppra
-Seizure precaution
-Cardiology consulted & interrogated ILR and no evidence of A-fib.
-Patient mentation is better today and following some commands although no meaningful conversation.
-Patient did well with speech therapy VSE so he was restarted on IDDSI level 4 diet by speech therapy recommendation--> switched his medications to oral yesterday and tolerating well.
2. Ruled out new CVA
h/o previous CVA
History of dysphagia
-Neurological checks difficult as patient encephalopathic/sedated
-MRI brain without contrast ruled out any new infarct. Multiple old CVA, report as above
-Repeat speech evaluation will be required once patient mentation better
3. Bilateral pulmonary embolism
-Negative lower extremity deep venous thrombosis at the time of diagnosis of PE
-Diagnosed in December 06, patient was on Eliquis before admission. Unable to take oral medication as currently sedated/obtunded. Changed to Lovenox 1 Mg/KG dose twice daily for time. Might be able to switch to oral later today
4. Type II DM
-Maintain on insulin sliding scale
Essential HTN
HLD
DVT PPX - lovenox
DNR
Anticipated Discharge: 24 - 48 hours
Subjective/Interval History
-
Date of Service: March 29, 2024
No new complaints or events.
Objective Data
-
Labs:
Laboratory Results
03/29/24
06:58
WBC 6.2
Hgb 13.2
Hct 36.2 L
Plt Count 231
Sodium 139
Potassium 3.5
Chloride 102
Carbon Dioxide 30
BUN 15
Creatinine 0.6 L
Glucose 115 H
Calcium 8.7
Vital Signs:
Vital Signs
Temp Pulse Resp BP Pulse Ox
97.6 F 68 20 145/73 96
03/29/24 07:09 03/29/24 07:09 03/29/24 07:09 03/29/24 07:09 03/29/24 07:09
I&O
03/28/24 03/29/24 03/30/24
06:59 06:59 06:59
Intake Total 120 / 120 480 / 480
Output Total 200 / 200 350 / 350
Balance -80 / -80 130 / 130
[2024-03-29 12:07] LABS: Glucose - Point of Care 172 mg/dl (70-99)
[2024-03-29] MEDS: NOVOLOG FLEXPEN-LOW RESISTANCE 1 UNITS SC ×2 (13:08→18:01)
[2024-03-29 14:58] VITALS: BP 138/79; PULSE 79; O2SAT 95
[2024-03-29 15:08] VITALS: BP 132/75
[2024-03-29 16:54] LABS: Glucose - Point of Care 156 mg/dl (70-99)
[2024-03-29 21:31] LABS: Glucose - Point of Care 145 mg/dl (70-99)
[2024-03-29 23:30] VITALS: BP 161/82
[2024-03-30 01:24] VITALS: BP 156/90
[2024-03-30 07:31] VITALS: BP 137/76
[2024-03-30 08:00] LABS: Glucose - Point of Care 129 mg/dl (70-99)
[2024-03-30] MEDS: NOVOLOG FLEXPEN-LOW RESISTANCE SC ×2 (08:15→12:28)
[2024-03-30] MEDS: KEPPRA 750 MG PO ×2 (08:16→19:52)
[2024-03-30] MEDS: ELIQUIS 5 MG PO ×2 (08:16→19:52)
[2024-03-30] MEDS: DESENEX/MITRAZOL/ZEASORB 1 APPLIC TOPICAL ×2 (08:21→19:52)
--- NOTE | 2024-03-30 08:55 | W.PN.HOSP.TC ---
Today's Communication/Plan
-
Discharge planning
Assessment / Plan
Assessment / Plan
Physical exam:
General: Acute on chronically ill
HEENT: Normocephalic, Atraumatic and Moist Mucous Membranes
Respiratory: Clear to Auscultation; Negative Wheezes, Rales or Rhonchi
Cardiac: Regular Rhythm and S1/S2
GI: Soft, Nontender and Nondistended
Musculoskeletal: No Clubbing, No Cyanosis and No Edema
Neuro: Awake, Alert and Disoriented, no neurodeficits
Psych: Calm
A/P:
MRI Brain
1. No MRI evidence for acute infarct.
2. Large chronic transcortical ischemic infarct in the right parietal lobe.
3. Moderate-sized chronic hemorrhagic infarct in the right occipital lobe.
4. Small chronic transcortical infarcts in the frontal lobes, left parietal lobe, and left occipital lobe.
5. Multiple small chronic infarcts in the cerebellar hemispheres.
6. Chronic bilateral thalamic infarcts (right larger than left).
7. Severe white matter microvascular ischemic disease in both cerebral hemispheres.
8. 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
9. Moderate to severe fluid in the mastoid air cells.
10. Mild paranasal sinus mucosal disease.

1. Acute toxic metabolic encephalopathy - persisting
Suspected seizure/postictal state
-Patient with history of previous CVA and there was concern of may be possible CVA inducing seizures
-EEG report reviewed. no overt seizure activity.
-CT head showed old stable encephalomalacia of right parietal/occipital lobe
-CTA head and neck done did not show any vascular occlusion
-Neurology evaluated and patient started on Keppra
-Seizure precaution
-Cardiology consulted & interrogated ILR and no evidence of A-fib.
-Patient mentation is better today and following some commands although no meaningful conversation.
-Patient did well with speech therapy VSE so he was restarted on IDDSI level 4 diet by speech therapy recommendation--> switched his medications to oral and tolerating well.
2. Ruled out new CVA
h/o previous CVA
History of dysphagia
-Neurological checks difficult as patient encephalopathic/sedated
-MRI brain without contrast ruled out any new infarct. Multiple old CVA, report as above
-Repeat speech evaluation will be required once patient mentation better
3. Bilateral pulmonary embolism
-Negative lower extremity deep venous thrombosis at the time of diagnosis of PE
-Diagnosed in December 06, patient was on Eliquis before admission. On DOAC
4. Type II DM
-Maintain on insulin sliding scale
Essential HTN
HLD
DVT PPX - lovenox
DNR
Anticipated Discharge: 24 - 48 hours
Subjective/Interval History
-
Date of Service: March 30, 2024
Patient remains with no new complaints and alert.
Objective Data
-
Labs:
Laboratory Results
03/30/24
07:38
Sodium Pending
Potassium Pending
Chloride Pending
Carbon Dioxide Pending
BUN Pending
Creatinine Pending
Glucose Pending
Calcium Pending
Total Bilirubin Pending
AST Pending
ALT Pending
Alkaline Phosphatase Pending
Vital Signs:
Vital Signs
Temp Pulse Resp BP Pulse Ox
97.7 F 69 18 137/76 96
03/30/24 07:31 03/30/24 07:31 03/30/24 07:31 03/30/24 07:31 03/30/24 07:31
I&O
03/29/24 03/30/24 03/31/24
06:59 06:59 06:59
Intake Total 480 / 480 300 / 300
Output Total 350 / 350 600 / 600
Balance 130 / 130 -300 / -300
[2024-03-30 08:59] LABS: ALT (SGPT) 104 U/L (0-50); AST (SGOT) 75 U/L (17-59); Albumin 3.5 g/dl (3.5-5.0); Alkaline Phosphatase 43 U/L (38-126); Blood Urea Nitrogen 19 mg/dl (9-20); Calcium 9.1 mg/dl (8.4-10.2); Carbon Dioxide 30 mmol/L (22-30); Chloride 102 mmol/L (98-107); Estimated Creatinine Clearance 100 ml/min; Glucose 124 mg/dl (70-99); Potassium 3.7 mmol/L (3.5-5.1); Sodium 140 mmol/L (135-145); Total Bilirubin 0.5 mg/dl (0.2-1.3); eGFR > 60.00
[2024-03-30 09:12] LABS: Total Protein 5.8 g/dl (6.3-8.2)
--- NOTE | 2024-03-30 10:27 | CM ---
Pt stable for d/c. CM spoke w/ pt's spouse on preferred facility that accepted pt as [facility] not have any available beds at this time.
Spouse stated either [facility] is fine as they both are geographically close to her.
Spoke martha/ [facility], no male beds available today
Spoke martha/ [facility], has bed for pt today
CM initiated auth, called [facility]- ([phone]). Spoke w/ Orin
Clinicals faxed to [phone].
Pending ref # [id number]
Will need ambulance transport at d/c
Updated hospitalist
[facility]
Report: [phone]

Plan: [facility] once auth is obtained
[2024-03-30 12:20] LABS: Glucose - Point of Care 132 mg/dl (70-99)
[2024-03-30 15:39] VITALS: BP 144/84
[2024-03-30 16:40] LABS: Glucose - Point of Care 150 mg/dl (70-99)
[2024-03-30] MEDS: NOVOLOG FLEXPEN-LOW RESISTANCE 1 UNITS SC (18:05)
[2024-03-30 23:55] VITALS: BP 168/87
[2024-03-31] MEDS: APRESOLINE 10 MG IV (00:03)
[2024-03-31] MEDS: TYLENOL 650 MG PO ×2 (01:27→17:14)
[2024-03-31 06:26] LABS: Glucose - Point of Care 123 mg/dl (70-99)
[2024-03-31] MEDS: NOVOLOG FLEXPEN-LOW RESISTANCE SC (07:37)
[2024-03-31 07:55] VITALS: BP 145/83
[2024-03-31 08:16] LABS: Glucose - Point of Care 114 mg/dl (70-99)
[2024-03-31] MEDS: DESENEX/MITRAZOL/ZEASORB 1 APPLIC TOPICAL ×2 (09:19→21:02)
[2024-03-31] MEDS: KEPPRA 750 MG PO ×2 (09:20→21:02)
[2024-03-31] MEDS: ELIQUIS 5 MG PO ×2 (09:20→21:02)
--- NOTE | 2024-03-31 10:12 | W.PN.HOSP.TC ---
Today's Communication/Plan
-
Continue AED. + Senna
Assessment / Plan
Assessment / Plan
Physical exam:
General: Acute on chronically ill
HEENT: Normocephalic, Atraumatic and Moist Mucous Membranes
Respiratory: Clear to Auscultation; Negative Wheezes, Rales or Rhonchi
Cardiac: Regular Rhythm and S1/S2
GI: Soft, Nontender and Nondistended
Musculoskeletal: No Clubbing, No Cyanosis and No Edema
Neuro: Awake, Alert and Disoriented, no neurodeficits
Psych: Calm
A/P:
MRI Brain
1. No MRI evidence for acute infarct.
2. Large chronic transcortical ischemic infarct in the right parietal lobe.
3. Moderate-sized chronic hemorrhagic infarct in the right occipital lobe.
4. Small chronic transcortical infarcts in the frontal lobes, left parietal lobe, and left occipital lobe.
5. Multiple small chronic infarcts in the cerebellar hemispheres.
6. Chronic bilateral thalamic infarcts (right larger than left).
7. Severe white matter microvascular ischemic disease in both cerebral hemispheres.
8. 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
9. Moderate to severe fluid in the mastoid air cells.
10. Mild paranasal sinus mucosal disease.

1. Acute toxic metabolic encephalopathy - persisting
Suspected seizure/postictal state
-Patient with history of previous CVA and there was concern of may be possible CVA inducing seizures
-EEG report reviewed. no overt seizure activity.
-CT head showed old stable encephalomalacia of right parietal/occipital lobe
-CTA head and neck done did not show any vascular occlusion
-Neurology evaluated and patient started on Keppra
-Seizure precaution
-Cardiology consulted & interrogated ILR and no evidence of A-fib.
-Patient mentation is better today and following some commands although no meaningful conversation.
-Patient did well with speech therapy VSE so he was restarted on IDDSI level 4 diet by speech therapy recommendation--> switched his medications to oral and tolerating well.
2. Ruled out new CVA
h/o previous CVA
History of dysphagia
-Neurological checks difficult as patient encephalopathic/sedated
-MRI brain without contrast ruled out any new infarct. Multiple old CVA, report as above
-Repeat speech evaluation will be required once patient mentation better
3. Bilateral pulmonary embolism
-Negative lower extremity deep venous thrombosis at the time of diagnosis of PE
-Diagnosed in December 06, patient was on Eliquis before admission. On DOAC
4. Type II DM
-Maintain on insulin sliding scale
5. Constipation
Start senna-usually works at home
Essential HTN
HLD
DVT PPX - lovenox
DNR
Anticipated Discharge: 24 - 48 hours
Subjective/Interval History
-
Date of Service: March 31, 2024
No new complaints. Constipation
Objective Data
-
Vital Signs:
Vital Signs
Temp Pulse Resp BP Pulse Ox
97.4 F 83 16 145/83 96
03/31/24 07:55 03/31/24 07:55 03/31/24 07:55 03/31/24 07:55 03/31/24 08:30
I&O
03/30/24 03/31/24 04/01/24
06:59 06:59 06:59
Intake Total 300 / 300 640 / 640 240 / 240
Output Total 600 / 600 500 / 500
Balance -300 / -300 140 / 140 240 / 240
[2024-03-31 11:59] LABS: Glucose - Point of Care 172 mg/dl (70-99)
[2024-03-31] MEDS: NOVOLOG FLEXPEN-LOW RESISTANCE 1 UNITS SC ×2 (12:37→17:15)
[2024-03-31 13:49] VITALS: BP 133/71; PULSE 83
[2024-03-31] MEDS: SENOKOT 8.6 MG PO ×2 (14:48→21:02)
[2024-03-31 15:07] VITALS: BP 165/90
--- NOTE | 2024-03-31 16:41 | CM ---
Chart reviewed.
Call from [facility] requesting peer to peer w/ medical territory manager
CM TT Dr. Law w/ peer to peer information to complete. Per Dr. Law, will provide insurance number to call Dr. Tomas to complete
Peer to peer to be complete by 04/03 by 10:30 am. Number to call is [phone], option 5
Ref # [id number]
Updated [facility]
Pt would need PT eval on Wednesday
[2024-03-31 16:49] LABS: % Basophils 0.7 % (0-2); % Eosinophils 2.7 % (0-6); % Immature Granulocytes 0.1 % (0-0.5); % Lymphocytes 26.4 % (20.5-51.1); % Monocytes 9.6 % (1.7-9.3); % Neutrophils 60.5 % (42.2-75.2); Absolute Basophils 0.1 10^3/uL (0-0.2); Absolute Eosinophils 0.2 10^3/uL (0-0.7); Absolute Lymphocytes 1.8 10^3/uL (1.2-3.4); Absolute Monocytes 0.6 10^3/uL (0.1-0.6); Absolute Neutrophils 4.1 10^3/uL (1.4-6.5); Mean Corpuscular Hgb 29.9 pg (27.0-31.0); Mean Corpuscular Volume 85.5 fL (80.0-94.0); Mean Platelet Volume 9.6 fL (7.4-10.4); Nucleated Red Blood Cells % 0 % (-); Platelet Count 264 10^3/uL (130-400); Red Blood Cell Count 4.68 10^6/uL (4.70-6.10); Red Cell Dist. Width 13.3 % (11.5-14.5); White Blood Cell Count 6.7 10^3/uL (4.8-10.8)
[2024-03-31 17:03] LABS: Blood Urea Nitrogen 16 mg/dl (9-20); Calcium 9.2 mg/dl (8.4-10.2); Carbon Dioxide 31 mmol/L (22-30); Chloride 101 mmol/L (98-107); Estimated Creatinine Clearance 117 ml/min; Glucose 161 mg/dl (70-99); Potassium 3.9 mmol/L (3.5-5.1); Sodium 139 mmol/L (135-145); eGFR > 60.00
[2024-03-31 17:13] LABS: Glucose - Point of Care 153 mg/dl (70-99)
--- NOTE | 2024-03-31 18:19 | CM ---
Received text from [facility] that she did complete the PTP this evening and denial was upheld. Update to . Asked her to make family aware in AM. If family chooses to they can call insurance company to request an expedited member appeal.
[2024-03-31 20:10] VITALS: BP 145/68
[2024-03-31 21:58] VITALS: BP 143/84
[2024-03-31 23:55] VITALS: BP 143/84
[2024-04-01 06:30] LABS: Glucose - Point of Care 127 mg/dl (70-99)
[2024-04-01 07:55] VITALS: BP 158/87
[2024-04-01] MEDS: NOVOLOG FLEXPEN-LOW RESISTANCE SC ×2 (07:56→18:01)
[2024-04-01 08:39] LABS: Glucose - Point of Care 120 mg/dl (70-99)
--- NOTE | 2024-04-01 09:09 | W.PN.HOSP.TC ---
Today's Communication/Plan
-
Discharge planning
Assessment / Plan
Assessment / Plan
Physical exam:
General: Acute on chronically ill
HEENT: Normocephalic, Atraumatic and Moist Mucous Membranes
Respiratory: Clear to Auscultation; Negative Wheezes, Rales or Rhonchi
Cardiac: Regular Rhythm and S1/S2
GI: Soft, Nontender and Nondistended
Musculoskeletal: No Clubbing, No Cyanosis and No Edema
Neuro: Awake, Alert and Disoriented, no neurodeficits
Psych: Calm
A/P:
MRI Brain
1. No MRI evidence for acute infarct.
2. Large chronic transcortical ischemic infarct in the right parietal lobe.
3. Moderate-sized chronic hemorrhagic infarct in the right occipital lobe.
4. Small chronic transcortical infarcts in the frontal lobes, left parietal lobe, and left occipital lobe.
5. Multiple small chronic infarcts in the cerebellar hemispheres.
6. Chronic bilateral thalamic infarcts (right larger than left).
7. Severe white matter microvascular ischemic disease in both cerebral hemispheres.
8. 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
9. Moderate to severe fluid in the mastoid air cells.
10. Mild paranasal sinus mucosal disease.

1. Acute toxic metabolic encephalopathy - persisting
Suspected seizure/postictal state
-Patient with history of previous CVA and there was concern of may be possible CVA inducing seizures
-EEG report reviewed. no overt seizure activity.
-CT head showed old stable encephalomalacia of right parietal/occipital lobe
-CTA head and neck done did not show any vascular occlusion
-Neurology evaluated and patient started on Keppra
-Seizure precaution
-Cardiology consulted & interrogated ILR and no evidence of A-fib.
-Patient mentation is better today and following some commands although no meaningful conversation.
-Patient did well with speech therapy VSE so he was restarted on IDDSI level 4 diet by speech therapy recommendation--> switched his medications to oral and tolerating well.
2. Ruled out new CVA
h/o previous CVA
History of dysphagia
-Neurological checks difficult as patient encephalopathic/sedated
-MRI brain without contrast ruled out any new infarct. Multiple old CVA, report as above
-Repeat speech evaluation will be required once patient mentation better
3. Bilateral pulmonary embolism
-Negative lower extremity deep venous thrombosis at the time of diagnosis of PE
-Diagnosed in December 06, patient was on Eliquis before admission. On DOAC
4. Type II DM
-Maintain on insulin sliding scale
5. Constipation
Start senna-usually works at home
Essential HTN
HLD
DVT PPX - lovenox
DNR
Anticipated Discharge: 24 - 48 hours
Subjective/Interval History
-
Date of Service: April 01, 2024
Patient with no new complaints. Generalized weakness present afebrile
Objective Data
-
Vital Signs:
Vital Signs
Temp Pulse Resp BP Pulse Ox
97.7 F 78 16 143/84 95
03/31/24 23:55 03/31/24 23:55 03/31/24 23:55 03/31/24 23:55 03/31/24 23:55
I&O
03/31/24 04/01/24 04/02/24
06:59 06:59 06:59
Intake Total 640 / 640 720 / 720
Output Total 500 / 500 550 / 550
Balance 140 / 140 170 / 170
[2024-04-01] MEDS: GLUCOPHAGE 500 MG PO ×2 (09:49→18:02)
[2024-04-01] MEDS: KEPPRA 750 MG PO ×2 (09:49→21:15)
[2024-04-01] MEDS: ELIQUIS 5 MG PO ×2 (09:50→21:15)
[2024-04-01] MEDS: SENOKOT 8.6 MG PO ×2 (09:50→21:15)
[2024-04-01] MEDS: NORVASC 5 MG PO (09:50)
[2024-04-01] MEDS: DESENEX/MITRAZOL/ZEASORB 1 APPLIC TOPICAL ×2 (09:57→21:15)
[2024-04-01 12:03] LABS: Glucose - Point of Care 189 mg/dl (70-99)
[2024-04-01] MEDS: NOVOLOG FLEXPEN-LOW RESISTANCE 1 UNITS SC (12:34)
[2024-04-01] MEDS: MIRALAX 17 GRAMS PO (15:08)
[2024-04-01] MEDS: MILK OF MAGNESIA 30 ML PO (15:08)
[2024-04-01 15:35] VITALS: BP 160/88
--- NOTE | 2024-04-01 15:54 | CM ---
[employer] insurance denied SNF approval.
Peer to peer done Insurance denied SNf coverage.
Spoke with pt s Carmen [phone] explained above . said she wants her to come home to [address], [place]. [facility] ambulance with [facility] .
Medical nec form completed Called acute care spoke with Layla set up ambulance for 11 am tomorrow.
MD notified of above.
IMM reviewed with she agrees with dc .
PLAN Home 04/02/24 via ambulance with [facility] fax
[2024-04-01 17:12] LABS: Glucose - Point of Care 122 mg/dl (70-99)
--- NOTE | 2024-04-01 18:33 | PTCARENOTE ---
Patient with large loose stool post laxatives.
[2024-04-01 21:16] LABS: Glucose - Point of Care 160 mg/dl (70-99)
[2024-04-01 23:15] VITALS: BP 139/95
[2024-04-02 07:55] VITALS: BP 150/82
[2024-04-02] MEDS: ELIQUIS 5 MG PO (08:13)
[2024-04-02] MEDS: NORVASC 5 MG PO (08:14)
[2024-04-02] MEDS: KEPPRA 750 MG PO (08:14)
[2024-04-02] MEDS: GLUCOPHAGE 500 MG PO (08:14)
[2024-04-02] MEDS: NOVOLOG FLEXPEN-LOW RESISTANCE SC (08:25)
[2024-04-02] MEDS: DESENEX/MITRAZOL/ZEASORB 1 APPLIC TOPICAL (08:26)
[2024-04-02] MEDS: MIRALAX PO (08:26)
[2024-04-02 08:27] LABS: Glucose - Point of Care 142 mg/dl (70-99)
[2024-04-02] MEDS: SENOKOT PO (08:27)
--- NOTE | 2024-04-02 08:38 | W.PN.HOSP.TC ---
Today's Communication/Plan
-
Discharge planning today
Assessment / Plan
Assessment / Plan
Physical exam:
General: Acute on chronically ill
HEENT: Normocephalic, Atraumatic and Moist Mucous Membranes
Respiratory: Clear to Auscultation; Negative Wheezes, Rales or Rhonchi
Cardiac: Regular Rhythm and S1/S2
GI: Soft, Nontender and Nondistended
Musculoskeletal: No Clubbing, No Cyanosis and No Edema
Neuro: Awake, Alert and oriented, no neurodeficits
Psych: Calm
A/P:
MRI Brain
1. No MRI evidence for acute infarct.
2. Large chronic transcortical ischemic infarct in the right parietal lobe.
3. Moderate-sized chronic hemorrhagic infarct in the right occipital lobe.
4. Small chronic transcortical infarcts in the frontal lobes, left parietal lobe, and left occipital lobe.
5. Multiple small chronic infarcts in the cerebellar hemispheres.
6. Chronic bilateral thalamic infarcts (right larger than left).
7. Severe white matter microvascular ischemic disease in both cerebral hemispheres.
8. 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
9. Moderate to severe fluid in the mastoid air cells.
10. Mild paranasal sinus mucosal disease.

1. Acute toxic metabolic encephalopathy - persisting
Suspected seizure/postictal state
-Patient with history of previous CVA and there was concern of may be possible CVA inducing seizures
-EEG report reviewed. no overt seizure activity.
-CT head showed old stable encephalomalacia of right parietal/occipital lobe
-CTA head and neck done did not show any vascular occlusion
-Neurology evaluated and patient started on Keppra
-Seizure precaution
-Cardiology consulted & interrogated ILR and no evidence of A-fib.
-Patient mentation is better today and following some commands although no meaningful conversation.
-Patient did well with speech therapy VSE so he was restarted on IDDSI level 4 diet by speech therapy recommendation--> switched his medications to oral and tolerating well.
-Patient's insurance rejected skilled rehab. decision support manager discussed with and would not like to appeal at the moment and okay to go home with home therapy. Plan to discharge today.
2. Ruled out new CVA
h/o previous CVA
History of dysphagia
-Neurological checks difficult as patient encephalopathic/sedated
-MRI brain without contrast ruled out any new infarct. Multiple old CVA, report as above
-Repeat speech evaluation will be required once patient mentation better
3. Bilateral pulmonary embolism
-Negative lower extremity deep venous thrombosis at the time of diagnosis of PE
-Diagnosed in December 06, patient was on Eliquis before admission. On DOAC
4. Type II DM
-Maintain on insulin sliding scale
5. Constipation
Start senna-usually works at home
Essential HTN
HLD
DVT PPX - lovenox
DNR
Anticipated Discharge: Today
Subjective/Interval History
-
Date of Service: April 02, 2024
Patient no new complaints. Alert. Patient had several bowel movements yesterday. Afebrile
Objective Data
-
Vital Signs:
Vital Signs
Temp Pulse Resp BP Pulse Ox
97.9 F 82 16 150/82 96
04/02/24 07:55 04/02/24 07:55 04/02/24 07:55 04/02/24 07:55 04/02/24 07:55
I&O
04/01/24 04/02/24 04/03/24
06:59 06:59 06:59
Intake Total 720 / 720 390 / 390
Output Total 550 / 550
Balance 170 / 170 390 / 390
--- NOTE | 2024-04-02 09:03 | W.DCSUMMARY ---
Discharge Summary
Discharge Data
Date of Admission: 03/23/24
Date of Discharge: 04/02/24
-
Pending Results: No
Hospital Course
Patient 68-year-old male with history of hypertension, CVA, diabetes mellitus, PE, presented to the hospital with metabolic encephalopathy. Neurology consulted. It was felt that he had seizures. Rest of his workup was unremarkable including MRI of
the brain with no acute stroke but chronic findings. He had a prolonged postictal state. He was started on antiseizure medications. He responded well. Speech therapy evaluated the patient and recommended level 4 pur�ed diet. Cardiology also was
consulted for ILR interrogation and there was no evidence of cardiac arrhythmias. PT OT evaluated the patient and recommended skilled rehab. Insurance unfortunately denied skilled rehab and this was communicated to family and they decided not to
appeal and they are okay with taking him home with home health. He is being discharged in relatively stable condition today.
Discharge duration: 34 minutes
Discharge Plan
-
Patient Disposition: Home with Home Care
Discharge Diagnosis/Procedures: Seizures. Acute toxic-metabolic encephalopathy. History of pulmonary embolism. Constipation. Hypertension. Diabetes mellitus type 2.
Condition: Good
Diet: Other diet
Additional Diets: Pur�ed diet as recommended by speech therapy.
Activity: As tolerated
Blood Work: Please PCP to order CBC, BMP within 1 week
Other Services: VN, PT and OT
Referrals:
Jeovany Mai MD [Active] - (office will call you to arrange)
Mauricio Gandhi MD [Family Provider] - in less than 1 week
Prescriptions:
New
levetiracetam 500 mg Tablet
750 mg PO BID 30 Days Qty: 90 0RF
Continued
escitalopram oxalate [Lexapro] 20 mg Tablet
20 mg PO DAILY
metformin 500 mg Tablet
500 mg PO BID
lisinopril 20 mg Tablet
20 mg PO DAILY
amlodipine 5 mg Tablet
5 mg PO DAILY
atorvastatin 40 mg Tablet
40 mg PO QPM Qty: 30 0RF
Eliquis 5 mg tablet
5 mg PO BID Qty: 30 0RF
Rx Instructions:
Start this dose on 12/14.
cyanocobalamin (vitamin B-12) 1,000 mcg Tablet
1,000 mcg PO DAILY
Centrum Chewables 8 mg-400 mcg- 10 mcg Tablet,Chewable
1 tab PO DAILY
Neuriva Original 100-100 mg Capsule
1 cap PO DAILY
Discharge Orders:
Discharge Patient (As Directed); Ordered 04/02/24
Ordered By: Colby Coates
Discharge Date and Time
Discharge Date/Time: 04/02/24 10:45
Print Language: GHANAIAN
[2024-04-02 09:06] LABS: Glucose - Point of Care 139 mg/dl (70-99)
--- NOTE | 2024-04-02 09:16 | CM ---
MD entered order for discharge.
Spoke with pt s Carmen [phone] she agrees with dc for to come home to [address] [place], [place] [id number], [place]. via ambulance with [facility] .
Medical nec form completed Called acute care spoke with Layla set up ambulance for 10 am .
LM with Shamika [facility]ab of referral [facility] and dc today.
PLAN Home via ambulance with [facility] fax
--- NOTE | 2024-04-02 10:29 | PTCARENOTE ---
Patient's IV removed. Patient left via ambulance crew. Spoke to patient's via phone regarding discharge instructions with verbalization of understanding.
== END 2024-04-02 10:45 | disposition home health service (06) | DRG 100 ==
LOC: 4 EAST ACU 14:55
PROVIDERS: Hospitalist; Physician Assistant Medical; Registered Nurse; ADMITTING PHYSICIAN Hospitalist; ATTENDING PHYSICIAN Hospitalist; CONSULT PHYSICIAN Internal Medicine; CONSULT PHYSICIAN Psychiatry & Neurology Neurology; EMERGENCY PHYSICIAN Emergency Medicine; FAMILY PHYSICIAN Family Medicine
DX: R56.9 Unspecified convulsions (principal); G92.8 Other toxic encephalopathy; I26.99 Other pulmonary embolism without acute cor pulmonale; Q21.12 Patent foramen ovale; E11.9 Type 2 diabetes mellitus without complications; K59.00 Constipation, unspecified; I10 Essential (primary) hypertension; E78.5 Hyperlipidemia, unspecified; Z66 Do not resuscitate; Z86.73 Personal history of transient ischemic attack (TIA), and cerebral infarction without residual deficits; Z79.01 Long term (current) use of anticoagulants; I67.2 Cerebral atherosclerosis; F32.A Depression, unspecified; Z86.711 Personal history of pulmonary embolism
CPT/HCPCS: 70450; 70496; 70498; 70551; 80048; 80053; 80061; 81003; 82962; 83036; 83090; 83605; 85025; 85027; 85610; 85730; 92523; 92526; 92610; 93005; 95816; 96374; 96375; 97110; 97163; 97167; 97530; 97535; 99285; Q9967